=== PATIENT | male | born 1950 | race Caucasian/White ===

== ENCOUNTER 2017-04-03 20:10 | Observation (INO) ==
[2017-04-03] MEDS ORDERED: Naloxone 0.4 MG/ML INJ IVP PRN (23:15)
[2017-04-03] MEDS ORDERED: Acetaminophen 325 MG TABLET PO PRN (23:15)
[2017-04-03] MEDS ORDERED: Metoprolol 100 MG TABLET PO SCH (23:19)
--- NOTE | 2017-04-03 23:41 | Internal Med History&Physical ---
Date of Encounter: 04/03/17 Time of Encounter: 23:30 Assessment and Plan (1) Diastolic heart failure Current visit: Yes Status: Acute Patient with bilateral pedal edema. Echocardiogram done in 2016 showed EF of 60 -65% with indeterminate diastolic function. We will repeat 2-D echocardiogram. Patient has exertional dyspnea. Will treat with intravenous Lasix. High risk for complications. Monitor urine output and renal function closely. Qualifiers: Heart failure chronicity: acute on chronic Qualified Code(s): I50.33 - Acute on chronic diastolic (congestive) heart failure (2) A-fib Current visit: Yes Status: Acute Patient with atrial fibrillation. Has had prior ablation. On anticoagulation with Xarelto. Reports no episodes of A. fib since his ablation earlier this year to current presentation. Will consult cardiology for recommendations. Continue metoprolol. Monitor with telemetry. Qualifiers: Atrial fibrillation type: chronic Qualified Code(s): I48.2 - Chronic atrial fibrillation (3) Chronic kidney disease, stage III (moderate) Current visit: Yes Status: Acute Creatinine slightly above baseline. Will monitor renal function closely as patient is receiving IV Lasix. (4) DM type 2 causing CKD stage 3 Current visit: Yes Status: Chronic Blood sugars uncontrolled. Will place patient back on his usual regimen of long -acting insulin and add sliding scale coverage. Diabetic diet. Monitor blood sugars closely Qualifiers: Diabetes mellitus usp insulin use: with linoleum layer helper use Qualified Code( s): E11.22 - Type 2 diabetes mellitus with diabetic chronic kidney disease; N18.3 - Chronic kidney disease, stage 3 (moderate); Z79.4 - alf (current) use of insulin (5) Hypertension Current visit: Yes Status: Chronic Controlled at this time. Continue home medications including metoprolol and lisinopril Qualifiers: Hypertension type: essential hypertension Qualified Code(s): I10 - Essential (primary) hypertension (6) Obesity, Class III, BMI 40-49.9 (morbid obesity) Current visit: Yes Status: Chronic Internal Medicine - H&P: HPI Chief complaint: Shortness of breath and palpitations Admitted From: Emergency Dept Plans for Post Hospital Care: Home History of present illness: Mr. Hernández is a 67 year old male patient with history of atrial fibrillation status post ablation earlier this year presented to the ER with complaints of shortness of breath with minimal exertion along with palpitations. Patient has been having these symptoms for the past couple of days. He did not have episodes of atrial fibrillation since his ablation earlier this year but has noted that his heart rate has increased to 140 this afternoon prior to presentation. In the ER he was found to be in A. fib. He denies any fever or chills. Does have some cough. Reports chest pain across his chest and he had radiation of the chest pain up to his jaw earlier this afternoon. Chest pain has since subsided. He denies any orthopnea or PND but does have increased pedal edema. Past Med Surg Social Fam HX - Past Medical History Attestation: Yes The following information was validated with the patient. Source: patient Medical history: CHF, diabetes, hyperlipidemia, hypertension, kidney stones, osteoporosis Psychiatric history: no psych history - Past Surgical History Surgical History: cholecystectomy, ureteral stent, other - Social History Smoking Status: Former smoker Smokeless Tobacco Status: No Alcohol use: rarely Drug use: none - Family History Mother Adopted: No Family Member Ethnicity: Non- Living Status: Hx Family Neurologic Disorders: Yes Father Adopted: No Family Member Ethnicity: Non- Living Status: Hx Family Cardiac Disorders: Yes Sister Hx Family Endocrine Disorder: Yes (DM(I)) Brother Hx Family Cardiac Disorders: Yes (CT) Internal Medicine - H&P: Meds Atorvastatin [Lipitor] 20 mg PO DAILY 10/17/15 [History] Furosemide [Lasix] 80 mg PO BID 10/17/15 [History] GlipiZIDE [Glipizide Xl] 20 mg PO DAILY 10/17/15 [History] Metformin HCl [Glucophage] 1,000 mg PO BID 10/17/15 [History] Multivitamin [One Daily Essential] 1 tab PO DAILY 10/17/15 [History] [place]-3/Dha/Epa/Fish Oil [Fish Oil 1,000 mg Softgel] 1,000 mg PO DAILY 10/17/15 [History] Saw/Vit E/Sod Rosa/Lyc/Beta/Pyg [Prostate Health Caplet] 1 tab PO DAILY 10/17/15 [History] Terazosin [Hytrin] 5 mg PO DAILY 10/17/15 [History] Albuterol Sulfate [Albuterol Inhaler] 2 puff IH Q4H PRN 07/21/16 [History] Insulin Glargine,Hum.rec.anlog [Lantus Solostar] 90 unit SQ BID 07/21/16 [ History] Isosorbide MONOnitrate (24 HR) [Imdur] 30 mg PO DAILY 07/21/16 [History] Lisinopril 20 mg PO DAILY 07/21/16 [History] Metoprolol [Lopressor] 150 mg PO BID 07/21/16 [History] Rivaroxaban [Xarelto] 15 mg PO 1700 07/21/16 [History] 3 Allergy/AdvReac Type Severity Reaction Status Date / Time sulfamethoxazole Allergy Rash Verified 04/12/16 10:16 [From Bactrim] trimethoprim [From Bactrim] Allergy Rash Verified 04/12/16 10:16 All Systems PM: A 10-system review of systems was performed and is negative for pertinent findings except as documented above in the HPI. - Constitutional Constitutional: no chills, no fever(s), no night sweats - EENT Eyes: no change in vision, no discharge, no pain, no photophobia Ears: no ear discharge, no ear pain, no tinnitus Nose, mouth and throat: no dysphagia, no nasal discharge, no neck pain, no sore throat - Cardiovascular Cardiovascular ROS IM: chest pain, dyspnea on exertion, edema, palpitations, no diaphoresis, no dyspnea, no lightheadedness, no syncope - Respiratory Respiratory: no cough, no dyspnea, no wheezing, no excessive phlegm production - Gastrointestinal Gastrointestinal: no abdominal pain, no diarrhea, no hematemesis, no hematochezia, no melena, no nausea, no vomiting - Musculoskeletal Musculoskeletal ROS IM: no numbness, no tingling - Integumentary Integumentary IM: no rash, no unusual bruising - Neurological Neurological ROS: no confusion, no convulsions, no focal weakness, no numbness, no tingling, no tremor(s) - Hematologic/Lymphatic Hematologic/Lymphatic: no easy bruising - Constitutional Vitals: Temp Pulse Resp BP Pulse Ox 97.5 F L 90 20 120/75 94 04/03/17 22:18 04/03/17 22:18 04/03/17 22:18 04/03/17 22:18 04/03/17 22:33 General appearance: Present: cooperative, mild distress, A&O X 3, morbidly obese , pleasant, answers questions appropriately - Neck Neck exam general surgery: Present: supple, trachea midline. Absent: lymphadenopathy - Respiratory Respiratory exam: Present: CTAB. Absent: accessory muscle use, rales, rhonchi, wheezes - Cardiovascular Cardiovascular exam: Present: irregular rhythm, +S1, +S2. Absent: diastolic murmur, gallop, rubs, systolic murmur - GI/Abdominal GI/Abdominal exam: Present: normal bowel sounds, soft, no peritoneal signs. Absent: distended, tenderness - Extremities Exam Extremities exam: Present: pedal edema, warm, radial pulses palpable and symmetrical. Absent: calf tenderness, cyanotic - Neurological Exam Neurological exam: Present: alert, CN II-XII intact, oriented X3, no focal deficits. Absent: facial droop, speech deficit - Skin Skin exam: Present: dry, intact Internal Med - H&P Results - Labs Labs: BUN 29 and creatinine 1.95, troponin 0.04, glucose 340, - EKG Data -: EKG Interpreted by Myself - EKG Data EKG comments: 04/03/17 23:45 Atrial fibrillation - Impressions No acute infiltrate
[2017-04-03] MEDS ORDERED: D5% in Water 1,000 ML IVC PRN (23:49)
[2017-04-03] MEDS ORDERED: *HR* Dextrose 50 % in Water (Syg) 50 ML SYRINGE IVP PRN (23:49)
[2017-04-03] MEDS ORDERED: Dextrose Gel 15 GM/37.5 ML TUBE PO PRN ×2 (23:49)
[2017-04-04] MEDS: Furosemide 40 MG/4 ML VIAL IVP SCH ×3 (00:15→16:25)
[2017-04-04] MEDS: Insulin DETEMIR 100 UNIT/ML X5UNITS SQ SCH ×3 (00:15→20:06)
[2017-04-04 00:20] LABS: Thyroid Stimulating Hormone 1.782 mcIU/mL (0.340-5.600)
[2017-04-04 00:21] LABS: Triiodothyronine (T3) Free 3.45 pg/mL (2.50-3.90)
[2017-04-04 05:49] LABS: Basophils % 0.4 %; Eosinophils # 0.1 K/mcL (0.0-0.6); Eosinophils % 1.6 %; Hematocrit 35.3 % (37.5-50.1); Hemoglobin 11.5 g/dL (12.9-16.9); Immature Granulocytes % 0.4 % (0-4); Lymphocytes # 2.4 K/mcL (0.6-4.6); Lymphocytes % 29.5 %; Mean Corpuscular HGB Conc 32.6 g/dL (31.6-35.5); Mean Corpuscular Hemoglobin 25.4 pg (28.0-33.3); Mean Corpuscular Volume 78.1 fL (83.0-100.0); Mean Platelet Volume 9.7 fL (9.4-12.4); Monocytes # 0.4 K/mcL (0.0-1.3); Monocytes % 5.3 %; Neutrophils # 5.2 K/mcL (1.6-8.9); Platelet Count 163 K/mcL (140-400); Red Blood Count 4.52 M/mcL (4.19-5.50); Red Cell Distribution Width 16.8 % (11.5-14.5); Segmented Neutrophils % 62.8 %
[2017-04-04 05:57] LABS: Hemoglobin A1C 9.3 %
[2017-04-04 05:59] LABS: Calcium 9.1 mg/dL (8.6-10.3); Potassium 3.7 mEq/L (3.5-5.1)
[2017-04-04] MEDS: Metoprolol 100 MG TABLET PO SCH ×2 (07:51→20:08)
[2017-04-04] MEDS: Isosorbide MONOnitrate (24 HR) 30 MG TAB.ER.24H PO SCH (07:51)
[2017-04-04] MEDS: Lisinopril 20 MG TABLET PO SCH (07:51)
[2017-04-04] MEDS: Multivit/Ca/Min/Fe/FA 1 TAB TABLET PO SCH (07:51)
[2017-04-04] MEDS: PROSTATE HEALTH PO SCH (07:53)
[2017-04-04] MEDS ORDERED: Furosemide 40 MG TABLET PO SCH (08:00)
[2017-04-04] MEDS: Insulin LISPRO 300 UNITS/3 ML VIAL SQ SCH ×3 (08:01→16:26)
--- NOTE | 2017-04-04 10:33 | Cardiology Consult Note ---
<Hever Romero - Last Filed: 04/04/17 10:28> Date of Encounter: 04/04/17 Time of Encounter: 10:00 Assessment and Plan (1) Atrial fibrillation Current Visit: Yes Status: Acute Presents with new afib. H/o atrial flutter s/p ablation. 24 hour telemetry shows afib, avg HR 82 bpm. HR seen as hisgh as 130. On metoprolol tartrate 150 mg BID. Add cardizem and titrate as needed. TSH normal. TTE pending. Last stress test 10/2015 was negative for ischemia. Patient on eliquis with no missed doses. Consider cardioversion if difficult to control. Qualifiers: Atrial fibrillation type: paroxysmal Qualified Code(s): I48.0 - Paroxysmal atrial fibrillation (2) Diastolic heart failure Current Visit: Yes Status: Acute H/o diastolic CHF. TTE 10/2015- LVEF 60-65%. Grossly, there appears to be moderate concentric left ventricular hypertrophy. Indeterminate diastolic function. Mildly dilated left atrium. No evidence of pulmonary hypertension. RVSP was not well obtained. No obvious significant valvular dysfunction. Mild fluid overload on exam. Check BNP. TTE pending. Currently negative 560 ml for his short stay here. Continue IV lasix. CHF education reviewed. Qualifiers: Heart failure chronicity: acute on chronic Qualified Code(s): I50.33 - Acute on chronic diastolic (congestive) heart failure Discussion w patient/family: The assessment and plan as outlined above was discussed with the patient and/or family members who expressed understanding and agreement. All questions were answered. Thank you for involving us in the care of your patient. Please call with any questions. History of Present Illness Consult date: 04/04/17 Requesting physician: Marylou Fontana Consult reason: Afib Chief complaint: dyspnea on exertion. History of present illness: Mr. Hernández is a 67 year old male with a history of SVT, aflutter on eliquis, s /p emeric aflutter ablation 07/2016, diastolic CHF, DM, HTN, and obesity who presents with dyspnea on exertion and palpitations increasing over the past week. C/o palpitations going into his jaw. He reports HR as high as 140 seen at home in the past 48 hours. He admits to 25 lb weight gain over the past year but losing 10lbs in the past month after. Admits to BLE edema. His initial work- up revealed he was in atrial fibrillation. He reports having SOB with his aflutter in the past. Past Med Surg Social Fam HX - Past Medical History Attestation: Yes The following information was validated with the patient. Medical history: CHF, diabetes, hyperlipidemia, hypertension, kidney stones, osteoporosis Psychiatric history: no psych history - Past Surgical History Surgical History: cholecystectomy, ureteral stent, other - Social History Smoking Status: Former smoker Smokeless Tobacco Status: No Alcohol use: rarely Drug use: none - Family History Mother Adopted: No Family Member Ethnicity: Non- Living Status: Hx Family Neurologic Disorders: Yes Father Adopted: No Family Member Ethnicity: Non- Living Status: Hx Family Cardiac Disorders: Yes Sister Hx Family Endocrine Disorder: Yes (DM(I)) Brother Hx Family Cardiac Disorders: Yes (MA) Medications and Allergies Atorvastatin [Lipitor] 20 mg PO DAILY 10/17/15 [History] Furosemide [Lasix] 80 mg PO BID 10/17/15 [History] GlipiZIDE [Glipizide Xl] 20 mg PO DAILY 10/17/15 [History] Metformin HCl [Glucophage] 1,000 mg PO BID 10/17/15 [History] Multivitamin [One Daily Essential] 1 tab PO DAILY 10/17/15 [History] [place]-3/Dha/Epa/Fish Oil [Fish Oil 1,000 mg Softgel] 1,000 mg PO DAILY 10/17/15 [History] Saw/Vit E/Sod Rosa/Lyc/Beta/Pyg [Prostate Health Caplet] 1 tab PO DAILY 10/17/15 [History] Terazosin [Hytrin] 5 mg PO DAILY 10/17/15 [History] Albuterol Sulfate [Albuterol Inhaler] 2 puff IH Q4H PRN 07/21/16 [History] Insulin Glargine,Hum.rec.anlog [Lantus Solostar] 90 unit SQ BID 07/21/16 [ History] Isosorbide MONOnitrate (24 HR) [Imdur] 30 mg PO DAILY 07/21/16 [History] Lisinopril 20 mg PO DAILY 07/21/16 [History] Metoprolol [Lopressor] 150 mg PO BID 07/21/16 [History] Docusate [Colace] 100 mg PO DAILY PRN 04/04/17 [History] Gabapentin [Neurontin] 100 mg PO TID 04/04/17 [History] Linagliptin [Tradjenta] 5 mg PO DAILY 04/04/17 [History] Sitagliptin Phosphate [Januvia] 50 mg PO DAILY 04/04/17 [History] 3 Allergy/AdvReac Type Severity Reaction Status Date / Time sulfamethoxazole Allergy Rash Verified 04/12/16 10:16 [From Bactrim] trimethoprim [From Bactrim] Allergy Rash Verified 04/12/16 10:16 All Systems Review: A 10-system review of systems was performed and is negative for pertinent findings except as documented above in the HPI. Physical Examination Vital Signs, Last 4 Hours Temp Pulse Resp BP Pulse Ox 04/04/17 07:23 97.7 F 103 18 133/70 94 General: Conversant, No Apparent Distress HEENT: Atraumatic, Normocephaly, Mucus Membranes Moist Neck: No JVD, Normal carotid pulses Cardiac: Other (irregular) Lungs: Normal Breath Sounds, No Wheeze, Rales, Rhonchi Neuro: Alert and responsive, No focal deficits noted Abdomen: Soft, Non-Tender Skin: No rashes noted on visualized skin Musculoskeletal: No Chest Wall Tenderness Extremities: No Clubbing, No Cyanosis, Normal Pulses, Other (1+ BLE edema) Results 04/04/17 05:27 04/04/17 05:27 Lab Results 04/03/17 04/03/17 04/04/17 23:33 23:33 05:27 WBC 8.2 Hgb 11.5 L Hct 35.3 L Plt Count 163 Sodium Potassium Chloride Carbon Dioxide BUN Creatinine Glucose Calcium Troponin I 0.03 TSH 1.782 04/04/17 04/04/17 05:27 05:27 WBC Hgb Hct Plt Count Sodium 139 Potassium 3.7 Chloride 103 Carbon Dioxide 28 BUN 34 H Creatinine 1.68 H Glucose 234 H Calcium 9.1 Troponin I 0.03 TSH - Imaging and Cardiology Stress Test: report reviewed Echo: report reviewed Consult Discharge Plan - Plan Referrals: Shivani Rojas, DIVIDEND DEPOSIT VOUCHER CLERK [Primary Care Provider] - <Heri Guerrero - Last Filed: 04/05/17 07:58> Date of Encounter: 04/04/17 Time of Encounter: 21:30 - Attending Attestation I have personally performed a face to face evaluation on this patient. I have reviewed and agree with the care plan. History and Exam by me shows: 1. Atrial fib with RVR: symptomatic, shortness of breath with exertion, fatique over last week, HR response 130s, 140s on presentation, slowed to 80s, 90s on diltiazem and metoprolol. He has hx A flutter with A flutter ablation 11/2016, no previous hx a fib, He is on Eliquis for primary stroke risk reduction. Will continue to titrate meds for rate control, repeat echo, trend troponins. 2. Hypertension: controlled on current medications 3. CHF: acute on chronic diastolic heart failure with increased peripheral edema over last several weeks, responding to IV diuresis, Echo 10/18 showed well preserved EF at 65%, mild LVH, impaired LV relaxation, will repeat echo to compare. 4. IDDM type II adult onset, reports blood sugars fairly well controlled on current meds. Assessment and Plan Discussion w patient/family: The assessment and plan as outlined above was discussed with the patient and/or family members who expressed understanding and agreement. All questions were answered. Thank you for involving us in the care of your patient. Please call with any questions. History of Present Illness History of present illness: Mr. Hernández is a 67 year old male All Systems Review: A 10-system review of systems was performed and is negative for pertinent findings except as documented above in the HPI. Physical Examination Vital Signs, Last 4 Hours Temp Pulse Resp BP Pulse Ox 04/05/17 07:05 97.5 F L 73 20 154/89 91 04/05/17 05:12 98.1 F 72 16 147/84 90 Results 04/05/17 05:07 04/05/17 05:07 Lab Results 04/05/17 04/05/17 05:07 05:07 WBC 7.7 Hgb 11.6 L Hct 36.5 L Plt Count 156 Sodium 139 Potassium 3.9 Chloride 102 Carbon Dioxide 30 H BUN 34 H Creatinine 1.67 H Glucose 262 H Calcium 9.0
[2017-04-04] MEDS ORDERED: Diltiazem CD (24hr) 120 MG CAPSULE PO SCH (10:45)
[2017-04-04] MEDS ORDERED: dilTIAZem HCl 60 MG TABLET PO SCH (11:15)
--- NOTE | 2017-04-04 15:31 | Internal Med Progress Note ---
Date of Encounter: 04/04/17 Time of Encounter: 15:31 - Assessment and plan (1) Atrial fibrillation Current Visit: Yes Status: Acute Assessment and plan: hx a-flutter; S/p RFA 07/2016. Now with new onset a-fib with HRs in 130s. Cont home BB, CCB added per Cardiology. Cont Xarelto. Monitor HR and uptitrate CCB as needed. Consider DCCV if unable to control HR. HR in 90s as of 04/04 afternoon Qualifiers: Atrial fibrillation type: paroxysmal Qualified Code(s): I48.0 - Paroxysmal atrial fibrillation (2) Chronic kidney disease, stage III (moderate) Current Visit: Yes Status: Acute Assessment and plan: per hx. Renal function at baseline. Avoid nephrotoxic agents. Intermittently monitor (3) DM type 2 causing CKD stage 3 Current Visit: Yes Status: Chronic Assessment and plan: Hgb A1c 9.3%. Cont home long acting, add SSI. Monitor blood sugar and titrate PRN Qualifiers: Diabetes mellitus detention insulin use: with terminal gauger supervisor use Qualified Code( s): E11.22 - Type 2 diabetes mellitus with diabetic chronic kidney disease; N18.3 - Chronic kidney disease, stage 3 (moderate); Z79.4 - manager terminal (current) use of insulin (4) Hypertension Current Visit: Yes Status: Chronic Assessment and plan: per hx. BP controlled. Cont home BP medication. Monitor BP and titrate PRN Qualifiers: Hypertension type: essential hypertension Qualified Code(s): I10 - Essential (primary) hypertension (5) Obesity, Class III, BMI 40-49.9 (morbid obesity) Current Visit: Yes Status: Chronic Assessment and plan: BMI 42; lifestyle recommendations encouraged. (6) DVT prophylaxis Current Visit: Yes Status: Acute Assessment and plan: Xarelto - Time Spent With Patient less than 15 minutes - Subjective Interval history: Seen and examined at bedside; patient is new to me. Information obtained from chart review and patient report. Patient says he feels weak and tired. Gets SOB with minimal ambulation. Has palpitations at times. No chest pain - Constitutional Vitals: Temp Pulse Resp BP Pulse Ox 98.3 F 91 16 127/75 94 04/04/17 15:27 04/04/17 15:27 04/04/17 15:27 04/04/17 15:27 04/04/17 15:27 General appearance: Present: cooperative, mild distress, A&O X 3, morbidly obese , pleasant, answers questions appropriately - Head Head exam: Present: atraumatic, normocephalic - Eye Eye exam: Present: PERRL, conjuntiva pink, sclera anicteric Pupils: Present: PERRL - Neck Neck exam general surgery: Present: supple, trachea midline. Absent: lymphadenopathy - Respiratory Respiratory exam: Present: CTAB. Absent: accessory muscle use, rales, rhonchi, wheezes - Cardiovascular Cardiovascular exam: Present: irregular rhythm, +S1, +S2. Absent: diastolic murmur, gallop, rubs, systolic murmur - GI/Abdominal GI/Abdominal exam: Present: normal bowel sounds, soft, no peritoneal signs. Absent: distended, tenderness - Extremities Exam Extremities exam: Present: warm, radial pulses palpable and symmetrical. Absent : calf tenderness, cyanotic, pedal edema - Neurological Exam Neurological exam: Present: CN II-XII intact, oriented X3, no focal deficits. Absent: pronater drift, facial droop, speech deficit - Skin Skin exam: Present: dry, intact Internal Medicine: Result - Labs CBC & Chem 7: 04/04/17 05:27 04/04/17 05:27 Labs: Short CBC 04/04/17 Range/Units 05:27 WBC 8.2 (4.3-11.1) K/mcL Hgb 11.5 L (12.9-16.9) g/dL Hct 35.3 L (37.5-50.1) % Plt Count 163 (140-400) K/mcL Neutrophils # 5.2 (1.6-8.9) K/mcL BMP 04/04/17 05:27 Sodium 139 Potassium 3.7 Chloride 103 Carbon Dioxide 28 BUN 34 H Creatinine 1.68 H Glucose 234 H Calcium 9.1 Cardiac Enzymes 04/03/17 04/04/17 Range/Units 23:33 05:27 Troponin I 0.03 0.03 (< 0.04) ng/mL Consult Discharge Plan - Plan Referrals: Shivani Rojas, RESEARCH ANTHROPOLOGIST [Primary Care Provider] -
[2017-04-04] MEDS: *HR* Rivaroxaban 15 MG TABLET PO SCH (16:26)
[2017-04-04] MEDS: dilTIAZem HCl 60 MG TABLET PO SCH (20:08)
[2017-04-04] MEDS ORDERED: Insulin LISPRO 300 UNITS/3 ML VIAL SQ SCH (21:00)
[2017-04-05] MEDS: dilTIAZem HCl 60 MG TABLET PO SCH ×3 (04:41→21:38)
[2017-04-05 05:34] LABS: Hematocrit 36.5 % (37.5-50.1); Hemoglobin 11.6 g/dL (12.9-16.9); Mean Corpuscular HGB Conc 31.8 g/dL (31.6-35.5); Mean Corpuscular Hemoglobin 25.2 pg (28.0-33.3); Mean Corpuscular Volume 79.3 fL (83.0-100.0); Mean Platelet Volume 9.3 fL (9.4-12.4); Platelet Count 156 K/mcL (140-400); Red Cell Distribution Width 17.1 % (11.5-14.5)
[2017-04-05 05:49] LABS: Potassium 3.9 mEq/L (3.5-5.1)
[2017-04-05] MEDS: Lisinopril 20 MG TABLET PO SCH (09:26)
[2017-04-05] MEDS: Multivit/Ca/Min/Fe/FA 1 TAB TABLET PO SCH (09:26)
[2017-04-05] MEDS: Furosemide 40 MG/4 ML VIAL IVP SCH ×2 (09:27→17:39)
[2017-04-05] MEDS: Isosorbide MONOnitrate (24 HR) 30 MG TAB.ER.24H PO SCH (09:27)
[2017-04-05] MEDS: Metoprolol 100 MG TABLET PO SCH ×2 (09:27→21:38)
[2017-04-05] MEDS: Insulin LISPRO 300 UNITS/3 ML VIAL SQ SCH ×4 (09:28→21:39)
[2017-04-05] MEDS: PROSTATE HEALTH PO SCH (09:29)
[2017-04-05] MEDS: Insulin DETEMIR 100 UNIT/ML X5UNITS SQ SCH (09:44)
--- NOTE | 2017-04-05 11:10 | Cardiology Progress Note ---
Date of Encounter: 04/05/17 Time of Encounter: 11:08 Assessment and Plan (1) Atrial fibrillation Current Visit: Yes Status: Acute Presents with new afib. H/o atrial flutter s/p ablation. 24 hour telemetry shows conversion to NSR overnight. Avg HR 82 bpm. On metoprolol tartrate 150 mg BID. Cardizem added yesterday and he is tolerating well. TSH normal. TTE pending. Last stress test 10/2015 was negative for ischemia. Patient on xarelto renal dose. Recommend continuing diuresis for 24 hours. Continue metoprolol and cardizem. RAUDEL highly suspected. Recommend sleep study. Discussed with patient who agrees. If no significant change on TTE cardiology will likely sign off. Out-pt f/u with cardiology will be coordinated by [facility] in 1-2 weeks. Qualifiers: Atrial fibrillation type: paroxysmal Qualified Code(s): I48.0 - Paroxysmal atrial fibrillation (2) Diastolic heart failure Current Visit: Yes Status: Acute H/o diastolic CHF. TTE 10/2015- LVEF 60-65%. Grossly, there appears to be moderate concentric left ventricular hypertrophy. Indeterminate diastolic function. Mildly dilated left atrium. No evidence of pulmonary hypertension. RVSP was not well obtained. No obvious significant valvular dysfunction. Mild fluid overload on exam. CXR was negative. Noted to have BLE edema mildly improved. Check BNP. Re-peat TTE pending. Continue IV lasix for at least 24 more hours. I&O does not appear to be accurate. weight unchanged from admission. Patient reports he is feeling better but not back to baseline. CHF education reviewed. Qualifiers: Heart failure chronicity: acute on chronic Qualified Code(s): I50.33 - Acute on chronic diastolic (congestive) heart failure Discussion w patient/family: The assessment and plan as outlined above was discussed with the patient and/or family members who expressed understanding and agreement. All questions were answered. Thank you for involving us in the care of your patient. Please call with any questions. Subjective Principal diagnosis: afib, DCHF Interval history: Mr. Hernández noted to have apnea while sleeping yesterday evening. Also difficult to arouse at that time. He is currently alert and oriented. Reports dyspnea when ambulating to bathroom. Denies palpitations. Objective Vital Signs Temp Pulse Resp BP Pulse Ox 04/05/17 07:05 97.5 F L 73 20 154/89 91 04/05/17 05:12 98.1 F 72 16 147/84 90 04/04/17 23:12 97.7 F 69 15 130/79 92 04/04/17 18:46 97.7 F 85 15 139/82 94 04/04/17 15:27 98.3 F 91 16 127/75 94 04/04/17 12:41 97.8 F 97 18 131/80 91 Intake and Output 04/04/17 04/05/17 04/05/17 23:59 07:59 15:59 Intake Total 450 / 450 200 / 200 480 / 480 Output Total 600 / 600 Balance 450 / 450 -400 / -400 480 / 480 Intake: Oral 450 / 450 200 / 200 480 / 480 Output: Urine 600 / 600 Other: Meal Breakfast Percent of Meal Consumed 100% # Voids 2 Weight 144.696 kg Blood Glucose* 333 306 Patient Weight 04/05/17 23:59 Weight 144.696 kg General: Conversant, No Apparent Distress HEENT: Atraumatic, Normocephaly, Mucus Membranes Moist Neck: No JVD, Normal carotid pulses Cardiac: Reg Rate and Rhythm, Normal S1 and S2, No Murmur Lungs: Normal Breath Sounds, No Wheeze, Rales, Rhonchi Neuro: Alert and responsive, No focal deficits noted Abdomen: Soft, Non-Tender Skin: No rashes noted on visualized skin Musculoskeletal: No Chest Wall Tenderness Extremities: No Clubbing, No Cyanosis, Normal Pulses, Other (1+ BLE edema) Results 04/05/17 05:07 04/05/17 05:07 Lab Results 04/05/17 04/05/17 05:07 05:07 WBC 7.7 Hgb 11.6 L Hct 36.5 L Plt Count 156 Sodium 139 Potassium 3.9 Chloride 102 Carbon Dioxide 30 H BUN 34 H Creatinine 1.67 H Glucose 262 H Calcium 9.0 - Imaging and Cardiology Echo: pending - EKG Interpretation EKG results cardiology: personally reviewed Consult Discharge Plan - Plan Referrals: Shivani Rojas, BAKESHOP CLEANER [Primary Care Provider] -
--- NOTE | 2017-04-05 16:03 | Internal Med Progress Note ---
Date of Encounter: 04/05/17 Time of Encounter: 16:01 - Assessment and plan (1) Diastolic heart failure Current Visit: Yes Status: Acute Assessment and plan: presented with SOB and lower extremity edema. 10/2015 TTE with EF 60% indeterminate diastolic dysfunction. Suspect secondary to dietary noncompliance ; patient admits to not restricting Na. Wean home diuretics, continue IV Lasix. Evaluated by cardiology who recommended another 24 hours of diuresis. Repeat echo pending Qualifiers: Heart failure chronicity: acute on chronic Qualified Code(s): I50.33 - Acute on chronic diastolic (congestive) heart failure (2) Atrial fibrillation Current Visit: Yes Status: Acute Assessment and plan: hx a-flutter; S/p RFA 07/2016. Now with new onset a-fib with HRs in 130s. Converted to NSR with home BB and CCB. TSH normal, TTE pending. Continue BB, CCB, Xarelto. Qualifiers: Atrial fibrillation type: paroxysmal Qualified Code(s): I48.0 - Paroxysmal atrial fibrillation (3) Chronic kidney disease, stage III (moderate) Current Visit: Yes Status: Acute Assessment and plan: per hx. Renal function at baseline. Avoid nephrotoxic agents. Intermittently monitor (4) DM type 2 causing CKD stage 3 Current Visit: Yes Status: Chronic Assessment and plan: Hgb A1c 9.3%. Cont home long acting, add SSI. 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 BP controlled. Cont home BP medication. Monitor BP and titrate PRN Qualifiers: Hypertension type: essential hypertension Qualified Code(s): I10 - Essential (primary) hypertension (6) Obesity, Class III, BMI 40-49.9 (morbid obesity) Current Visit: Yes Status: Chronic Assessment and plan: BMI 42; lifestyle recommendations encouraged. (7) RAUDEL (obstructive sleep apnea) Current Visit: Yes Status: Acute Assessment and plan: Suspected with body habitus and daytime sleepiness. Will need outpatient sleep study (8) DVT prophylaxis Current Visit: Yes Status: Acute Assessment and plan: Xarelto - Subjective Interval history: Seen and examined at bedside. Still with complaint of shortness of breath with activity and excessive tiredness. No chest pain. He feels Lasix is working but still needs to get more fluid off of him - Constitutional Vitals: Temp Pulse Resp BP Pulse Ox 97.5 F L 81 16 146/78 91 04/05/17 15:19 04/05/17 15:19 04/05/17 15:19 04/05/17 15:19 04/05/17 15:19 General appearance: Present: cooperative, mild distress, A&O X 3, morbidly obese , pleasant, answers questions appropriately - Head Head exam: Present: atraumatic, normocephalic - Eye Eye exam: Present: PERRL, conjuntiva pink, sclera anicteric Pupils: Present: PERRL - Neck Neck exam general surgery: Present: supple, trachea midline. Absent: lymphadenopathy - Respiratory Respiratory exam: Present: CTAB. Absent: accessory muscle use, rales, rhonchi, wheezes - Cardiovascular Cardiovascular exam: Present: RRR, +S1, +S2. Absent: diastolic murmur, gallop, rubs, systolic murmur - GI/Abdominal GI/Abdominal exam: Present: normal bowel sounds, soft, no peritoneal signs. Absent: distended, tenderness - Extremities Exam Extremities exam: Present: warm, radial pulses palpable and symmetrical. Absent : calf tenderness, cyanotic, pedal edema - Neurological Exam Neurological exam: Present: CN II-XII intact, oriented X3, no focal deficits. Absent: pronater drift, facial droop, speech deficit - Skin Skin exam: Present: dry, intact Internal Medicine: Result - Labs CBC & Chem 7: 04/05/17 05:07 04/05/17 05:07 Labs: Short CBC 04/05/17 Range/Units 05:07 WBC 7.7 (4.3-11.1) K/mcL Hgb 11.6 L (12.9-16.9) g/dL Hct 36.5 L (37.5-50.1) % Plt Count 156 (140-400) K/mcL BMP 04/05/17 05:07 Sodium 139 Potassium 3.9 Chloride 102 Carbon Dioxide 30 H BUN 34 H Creatinine 1.67 H Glucose 262 H Calcium 9.0 Consult Discharge Plan - Plan Referrals: Shivani Rojas, LINING MACHINE TENDER [Primary Care Provider] -
[2017-04-05] MEDS ORDERED: Insulin LISPRO 300 UNITS/3 ML VIAL SQ SCH ×2 (16:30→21:00)
[2017-04-05] MEDS: *HR* Rivaroxaban 15 MG TABLET PO SCH (17:39)
[2017-04-06 04:24] LABS: Hematocrit 35.6 % (37.5-50.1); Hemoglobin 11.2 g/dL (12.9-16.9); Mean Corpuscular HGB Conc 31.5 g/dL (31.6-35.5); Mean Corpuscular Volume 79.5 fL (83.0-100.0); Mean Platelet Volume 9.7 fL (9.4-12.4); Platelet Count 155 K/mcL (140-400); Red Blood Count 4.48 M/mcL (4.19-5.50); Red Cell Distribution Width 17.1 % (11.5-14.5)
[2017-04-06 04:38] LABS: Calcium 8.8 mg/dL (8.6-10.3); Potassium 3.8 mEq/L (3.5-5.1)
[2017-04-06] MEDS: dilTIAZem HCl 60 MG TABLET PO SCH ×3 (04:40→21:30)
[2017-04-06] MEDS: Isosorbide MONOnitrate (24 HR) 30 MG TAB.ER.24H PO SCH (09:02)
[2017-04-06] MEDS: Furosemide 40 MG/4 ML VIAL IVP SCH ×2 (09:02→17:58)
[2017-04-06] MEDS: Multivit/Ca/Min/Fe/FA 1 TAB TABLET PO SCH (09:02)
[2017-04-06] MEDS: Lisinopril 20 MG TABLET PO SCH (09:02)
[2017-04-06] MEDS: Metoprolol 100 MG TABLET PO SCH ×2 (09:02→21:29)
[2017-04-06] MEDS: Insulin DETEMIR 100 UNIT/ML X5UNITS SQ SCH ×2 (09:03→19:42)
[2017-04-06] MEDS: Insulin LISPRO 300 UNITS/3 ML VIAL SQ SCH ×4 (09:03→19:41)
[2017-04-06] MEDS: PROSTATE HEALTH PO SCH (09:04)
--- NOTE | 2017-04-06 12:30 | Cardiology Progress Note ---
Date of Encounter: 04/06/17 Time of Encounter: 12:00 Assessment and Plan (1) Diastolic heart failure Current Visit: Yes Status: Acute H/o diastolic CHF. TTE 10/2015- LVEF 60-65%. Grossly, there appears to be moderate concentric left ventricular hypertrophy. Indeterminate diastolic function. Mildly dilated left atrium. No evidence of pulmonary hypertension. RVSP was not well obtained. No obvious significant valvular dysfunction. Mild fluid overload on exam. CXR was negative. Noted to have BLE edema mildly improved. TTE shows preserved LVEF. Patient reports several missed doses of lasix recently, likely reason for acute on chronic dCHF. Change lasix to PO by discharge. I&O does not appear to be accurate. weight unchanged from admission. Patient reports he is feeling better but not back to baseline. CHF education reviewed. Qualifiers: Heart failure chronicity: acute on chronic Qualified Code(s): I50.33 - Acute on chronic diastolic (congestive) heart failure (2) Atrial fibrillation Current Visit: Yes Status: Acute Presents with new afib. H/o atrial flutter s/p ablation. 24 hour telemetry shows conversion to NSR 04/05/17. Avg HR 66 SR bpm overnight. On metoprolol tartrate 150 mg BID. Cardizem added 04/04/17 and he is tolerating well. TTE shows preserved LVEF, 60%, trace MR/TR. TSH normal. Last stress test 10/2015 was negative for ischemia. Patient on xarelto renal dose. Reports dyspnea significantly improved, emphasized the importance of taking lasix daily at home. Continue metoprolol and cardizem. RAUDEL highly suspected. Recommend sleep study. Discussed with patient who agrees. Out-pt f/u with cardiology will be coordinated by [facility] in 1-2 weeks. Qualifiers: Atrial fibrillation type: paroxysmal Qualified Code(s): I48.0 - Paroxysmal atrial fibrillation Discussion w patient/family: The assessment and plan as outlined above was discussed with the patient and/or family members who expressed understanding and agreement. All questions were answered. Thank you for involving us in the care of your patient. Please call with any questions. The patient will be discussed and reviewed with Dr. Wall; changes to be made accordingly. Cardiology will sign-off. Please call with questions. Subjective Principal diagnosis: afib, DCHF Interval history: Seen and examined. Reports shortness of breath has improved, yet not at baseline. Reports several missed doses of lasix recently. Reemphasized the importance of adhering to CHF guidelines. Otherwise, no reported events overnight. Objective Vital Signs, Last 4 Hours Temp Pulse Resp BP Pulse Ox 04/06/17 11:39 97.8 F 69 18 126/77 94 General: Conversant, Other (morbidly obese) HEENT: Atraumatic, Normocephaly Cardiac: Reg Rate and Rhythm, Normal S1 and S2 Lungs: Normal Breath Sounds Neuro: Alert and responsive Extremities: Other (mild BLE edema, large extremities) Results 04/06/17 03:35 04/06/17 03:35 Lab Results 04/05/17 04/06/17 04/06/17 16:29 03:35 03:35 WBC 7.4 Hgb 11.2 L Hct 35.6 L Plt Count 155 D-Dimer 251 Sodium 138 Potassium 3.8 Chloride 101 Carbon Dioxide 31 H BUN 33 H Creatinine 1.69 H Glucose 293 H Calcium 8.8 Active Medications Acetaminophen (Tylenol) 650 mg PO Q6HR PRN PRN Reason: Mild Pain (1-3) Stop: 10/03/17 23:16 Last Admin: 04/05/17 21:37 Dose: 650 mg Albuterol Sulfate (Albuterol Inhaler) 2 puff IH Q4H PRN PRN Reason: Wheezing Stop: 10/03/17 23:19 Atorvastatin Calcium (Lipitor) 20 mg PO DAILY CARLIE Stop: 10/04/17 09:01 Last Admin: 04/06/17 09:02 Dose: 20 mg Dextrose/Water (Dextrose 50% (Syg)) 25 ml IVP AD PRN PRN Reason: Hypoglycemia Stop: 10/03/17 23:50 Diltiazem HCl (Cardizem) 60 mg PO Q8H CARLIE Stop: 10/04/17 11:16 Last Admin: 04/06/17 11:37 Dose: 60 mg Furosemide (Lasix) 80 mg IVP BIDDIURETIC CARLIE Stop: 10/03/17 23:46 Last Admin: 04/06/17 09:02 Dose: 80 mg Glucagon (Glucagen) 1 mg IM ONCE PRN PRN Reason: Hypoglycemia Stop: 10/03/17 23:50 Glucose (Gluctose) 15 gm PO ONCE PRN PRN Reason: Hypoglycemia Stop: 10/03/17 23:50 Glucose (Gluctose) 30 gm PO ONCE PRN PRN Reason: Hypoglycemia Stop: 10/03/17 23:50 Dextrose (Dextrose 5%) 1,000 mls @ 100 mls/hr IVC .Q10H PRN PRN Reason: HYPOGLYCEMIA Stop: 10/03/17 23:50 Insulin Detemir (Levemir) 95 unit SQ BID [facility] Stop: 10/06/17 09:01 Last Admin: 04/06/17 09:03 Dose: 95 unit Insulin Human Lispro (Humalog) 0 units SQ HS CARLIE PRN Reason: Protocol Stop: 10/05/17 21:01 Last Admin: 04/05/17 21:39 Dose: 16 units Insulin Human Lispro (Humalog) 0 units SQ TIDAC CARLIE PRN Reason: Protocol Stop: 10/05/17 16:31 Last Admin: 04/06/17 11:38 Dose: 16 units Isosorbide Mononitrate (Imdur) 30 mg PO DAILY [facility] Stop: 10/04/17 09:01 Last Admin: 04/06/17 09:02 Dose: 30 mg Lisinopril (Zestril) 20 mg PO DAILY [facility] Stop: 10/04/17 09:01 Last Admin: 04/06/17 09:02 Dose: 20 mg Metoprolol Tartrate (Lopressor) 150 mg PO BID [facility] Stop: 10/04/17 09:01 Last Admin: 04/06/17 09:02 Dose: 150 mg Multivitamins/Calcium (Thera M Plus) 1 tab PO DAILY [facility] Stop: 10/04/17 09:01 Last Admin: 04/06/17 09:02 Dose: 1 tab Naloxone HCl (Narcan) 0.4 mg IVP Q2MIN PRN PRN Reason: Opioid Reversal Stop: 10/03/17 23:16 Pharmacy Profile Note (Patient Taking Own Medication) 1 each PO DAILY [facility] Stop: 10/04/17 09:01 Last Admin: 04/06/17 09:04 Dose: Not Given Pharmacy Profile Note (Patient Taking Own Medication) 1 each PO DAILY [facility] Stop: 10/04/17 09:01 Last Admin: 04/06/17 09:04 Dose: Not Given Rivaroxaban (Xarelto) 15 mg PO 1700 [facility] Stop: 10/04/17 17:01 Last Admin: 04/05/17 17:39 Dose: 15 mg Terazosin HCl (Hytrin) 5 mg PO DAILY CARLIE Stop: 10/04/17 09:01 Last Admin: 04/06/17 09:02 Dose: 5 mg - Imaging and Cardiology Echo: report reviewed - EKG Interpretation EKG results cardiology: personally reviewed Consult Discharge Plan - Plan Referrals: Shivani Rojas, CORSET MAKER [Primary Care Provider] -
--- NOTE | 2017-04-06 14:38 | Internal Med Progress Note ---
Date of Encounter: 04/06/17 Time of Encounter: 14:34 - Assessment and plan (1) Diastolic heart failure Current Visit: Yes Status: Acute Assessment and plan: presented with SOB and lower extremity edema. CXR nonacute, with lower extremity edema. TTE with EF 60%, moderate concentric left ventricular hypertrophy. Suspect secondary to dietary and medication noncompliance; patient admits to not restricting Na and have missed several doses of Lasix. He is diuresing well with IV Lasix. Difficult to ascertain exact fluid loss as I&Os do not appear accurate and weight unchanged from admission. Symptoms significantly improved on 04/06. Continue IV diuresis overnight and anticipate discharge 04/07. Qualifiers: Heart failure chronicity: acute on chronic Qualified Code(s): I50.33 - Acute on chronic diastolic (congestive) heart failure (2) Atrial fibrillation Current Visit: Yes Status: Acute Assessment and plan: hx a-flutter; S/p RFA 07/2016. Now with new onset a-fib with HRs in 130s. Converted to NSR with home BB and CCB. TSH normal. TTE with a 60%. Continue BB , CCB, Xarelto. Qualifiers: Atrial fibrillation type: paroxysmal Qualified Code(s): I48.0 - Paroxysmal atrial fibrillation (3) Chronic kidney disease, stage III (moderate) Current Visit: Yes Status: Acute Assessment and plan: per hx. Renal function at baseline. Avoid nephrotoxic agents. Intermittently monitor (4) DM type 2 causing CKD stage 3 Current Visit: Yes Status: Chronic Assessment and plan: Hgb A1c 9.3%. Blood sugars have been elevated; home long-acting increase and on high-dose SSI. Elevation likely secondary to not being on oral hypoglycemics. Monitor blood sugar and titrate PRN. Resume home diabetes medication regimen at discharge. 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 BP controlled. Cont home BP medication. Monitor BP and titrate PRN Qualifiers: Hypertension type: essential hypertension Qualified Code(s): I10 - Essential (primary) hypertension (6) Obesity, Class III, BMI 40-49.9 (morbid obesity) Current Visit: Yes Status: Chronic Assessment and plan: BMI 42; lifestyle recommendations encouraged. (7) RAUDEL (obstructive sleep apnea) Current Visit: Yes Status: Acute Assessment and plan: Suspected with body habitus and daytime sleepiness. Will need outpatient sleep study (8) DVT prophylaxis Current Visit: Yes Status: Acute Assessment and plan: Xarelto - Time Spent With Patient less than 15 minutes - Subjective Interval history: Seen and examined at bedside. Says he feels much better but he thinks he still needs more fluid to come off. Shortness of breath improved but still there, no chest pain. He would like to stay 1 more night for IV Lasix with possible discharge in the morning. - Constitutional Vitals: Temp Pulse Resp BP Pulse Ox 97.8 F 69 18 126/77 94 04/06/17 11:39 04/06/17 11:39 04/06/17 11:39 04/06/17 11:39 04/06/17 11:39 General appearance: Present: cooperative, mild distress, A&O X 3, morbidly obese , pleasant, answers questions appropriately - Head Head exam: Present: atraumatic, normocephalic - Eye Eye exam: Present: PERRL, conjuntiva pink, sclera anicteric Pupils: Present: PERRL - Neck Neck exam general surgery: Present: supple, trachea midline. Absent: lymphadenopathy - Respiratory Respiratory exam: Present: CTAB. Absent: accessory muscle use, rales, rhonchi, wheezes - Cardiovascular Cardiovascular exam: Present: RRR, +S1, +S2. Absent: diastolic murmur, gallop, rubs, systolic murmur - GI/Abdominal GI/Abdominal exam: Present: normal bowel sounds, soft, no peritoneal signs. Absent: distended, tenderness - Extremities Exam Extremities exam: Present: pedal edema, warm, radial pulses palpable and symmetrical. Absent: calf tenderness, cyanotic - Neurological Exam Neurological exam: Present: CN II-XII intact, oriented X3, no focal deficits. Absent: pronater drift, facial droop, speech deficit - Skin Skin exam: Present: dry, intact Internal Medicine: Result - Labs CBC & Chem 7: 04/06/17 03:35 04/06/17 03:35 Labs: Short CBC 04/06/17 Range/Units 03:35 WBC 7.4 (4.3-11.1) K/mcL Hgb 11.2 L (12.9-16.9) g/dL Hct 35.6 L (37.5-50.1) % Plt Count 155 (140-400) K/mcL BMP 04/06/17 03:35 Sodium 138 Potassium 3.8 Chloride 101 Carbon Dioxide 31 H BUN 33 H Creatinine 1.69 H Glucose 293 H Calcium 8.8 - ABG Interpretation ABG results: PT/INR, D-dimer D-Dimer 251 ng/mLFEU (0-500) 04/05/17 16:29 - Impressions Impressions Echocardiogram 04/04/17 10:00 Impressions: Technically adequate exam. Atrial fibrillation. LVEF 60%. Normal LV chamber size, wall thickness and function. Trace mitral regurgitation. Trace tricuspid regurgitation. Findings: Study Quality * Technically adequate exam. ECG Findings * Atrial fibrillation. Left Ventricle * LVEF 60%. * Normal LV chamber size, wall thickness and function. Right Ventricle * Normal right ventricular structure and function. Left Atrium * Normal left atrial size. Right Atrium * Normal right atrial size. Interatrial Septum * No evidence of PFO by color Doppler. Aortic Valve * Trileaflet aortic valve. Mitral Valve * Normal mitral valve structure and function. * Trace mitral regurgitation. Tricuspid Valve * Normal tricuspid valve structure and function. * Trace tricuspid regurgitation. Pulmonic Valve * Pulmonic valve is not well visualized. Aorta * Normally sized aortic root. Pericardium * The pericardium appears normal. Consult Discharge Plan - Plan Referrals: Shivani Rojas, PARKING METER INSTALLER [Primary Care Provider] -
[2017-04-06] MEDS: *HR* Rivaroxaban 15 MG TABLET PO SCH (17:58)
[2017-04-07] MEDS: dilTIAZem HCl 60 MG TABLET PO SCH ×2 (03:43→11:26)
[2017-04-07 07:35] LABS: Calcium 8.9 mg/dL (8.6-10.3); Potassium 3.8 mEq/L (3.5-5.1)
[2017-04-07] MEDS: Furosemide 40 MG/4 ML VIAL IVP SCH (07:42)
[2017-04-07] MEDS: Insulin LISPRO 300 UNITS/3 ML VIAL SQ SCH ×2 (07:43→11:28)
[2017-04-07] MEDS: Metoprolol 100 MG TABLET PO SCH (07:44)
[2017-04-07] MEDS: Lisinopril 20 MG TABLET PO SCH (07:45)
[2017-04-07] MEDS: Isosorbide MONOnitrate (24 HR) 30 MG TAB.ER.24H PO SCH (07:45)
[2017-04-07] MEDS: Multivit/Ca/Min/Fe/FA 1 TAB TABLET PO SCH (07:45)
[2017-04-07] MEDS: Insulin DETEMIR 100 UNIT/ML X5UNITS SQ SCH (10:13)
[2017-04-07] MEDS: PROSTATE HEALTH PO SCH (10:22)
[2017-04-07 11:20] VITALS: BP 143/83
--- NOTE | 2017-04-07 13:24 | Discharge Summary ---
Date of Encounter: 04/07/17 Time of Encounter: 10:25 - Discharge Diagnosis (1) Diastolic heart failure Priority: Primary Status: Chronic Comments: Acute exacerbation. Pt presents with SOB and LE edema. CXR negative for acute disease. Echo with afib, EF 60% and trace MR and TR. Patient reports he is not adherent to his medication and diet regimen at home. He states that he does not restrict sodium, he does not restrict fluid, and reports that he has missed several doses of Lasix due to the inconvenience of frequent urination. Patient appears to be euvolemic today. He has no pretibial edema and he states that he feels significantly better and is breathing much better. He is now able to ambulate around his room without difficulty or shortness of breath. His lungs are clear and diminished in posterior lung avelar. He is in no respiratory distress and no rales or rhonchi noted. Intake and output recorded does not appear to be accurate, he appears to have about a 3.2 kg weight loss. Patient states that he now understands the importance of taking his medication and adhering to stricter dietary guidelines. Qualifiers: Heart failure chronicity: acute on chronic Qualified Code(s): I50.33 - Acute on chronic diastolic (congestive) heart failure (2) Hypertension Priority: Secondary Status: Chronic Comments: Well controlled in the hospital. Continue home medications. Qualifiers: Hypertension type: essential hypertension Qualified Code(s): I10 - Essential (primary) hypertension (3) Atrial fibrillation Priority: Secondary Status: Acute Comments: The patient was new onset A. fib. Patient converted to normal sinus on 04/05. He remains normal sinus with an average rate of 66. The patient will continue metoprolol tartrate 150 mg twice daily and Cardizem was added, is tolerating it well. Patient will continue renal dose of Xarelto. Patient denies chest pain. Per cardiology, patient would benefit from a sleep study. Patient will follow up with primary care for order for sleep study. Qualifiers: Atrial fibrillation type: paroxysmal Qualified Code(s): I48.0 - Paroxysmal atrial fibrillation (4) Hyperlipidemia Priority: Secondary Status: Chronic Comments: Chronic. Continue Lipitor. Qualifiers: Hyperlipidemia type: Mixed hyperlipidemia Qualified Code(s): E78.2 - Mixed hyperlipidemia (5) DM type 2 causing CKD stage 3 Priority: Secondary Status: Chronic Comments: Patient was poorly controlled diabetes. His A1c is 9.3. Patient reports hyperglycemia because we are not letting him take his by mouth medications while in the hospital. Patient and I discussed the importance of continuing home medications as well as continuing diet modifications, increasing exercise, monitoring Accu-Cheks closely. Patient agreed. 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 Continue lifestyle changes. (7) Chronic kidney disease, stage III (moderate) Priority: Secondary Status: Chronic Comments: GFR is 46, serum creatinine is 1.51. Renal function is improving since admission. Continue to avoid nephrotoxins. Follow-up with nephrology. (8) DVT prophylaxis Priority: Secondary Status: Acute Comments: Pt on Xarelto. (9) RAUDEL (obstructive sleep apnea) Priority: Secondary Status: Acute Comments: Suspected, patient is morbidly obese and reports daytime drowsiness. Cardiology discussed having a sleep study performed. Patient will need to follow-up with primary care for order for sleep study. - Discharge Medications Prescriptions: dilTIAZem HCl [Cardizem] 60 mg PO Q8H #90 tablet Home Medications: Atorvastatin [Lipitor] 20 mg PO DAILY 10/17/15 [History] Furosemide [Lasix] 80 mg PO BID 10/17/15 [History] GlipiZIDE [Glipizide Xl] 20 mg PO DAILY 10/17/15 [History] Metformin HCl [Glucophage] 1,000 mg PO BID 10/17/15 [History] Multivitamin [One Daily Essential] 1 tab PO DAILY 10/17/15 [History] [place]-3/Dha/Epa/Fish Oil [Fish Oil 1,000 mg Softgel] 1,000 mg PO DAILY 10/17/15 [History] Saw/Vit E/Sod Rosa/Lyc/Beta/Pyg [Prostate Health Caplet] 1 tab PO DAILY 10/17/15 [History] Terazosin [Hytrin] 5 mg PO DAILY 10/17/15 [History] Albuterol Sulfate [Albuterol Inhaler] 2 puff IH Q4H PRN 07/21/16 [History] Insulin Glargine,Hum.rec.anlog [Lantus Solostar] 90 unit SQ BID 07/21/16 [ History] Isosorbide MONOnitrate (24 HR) [Imdur] 30 mg PO DAILY 07/21/16 [History] Lisinopril 20 mg PO DAILY 07/21/16 [History] Metoprolol [Lopressor] 150 mg PO BID 07/21/16 [History] Docusate [Colace] 100 mg PO DAILY PRN 04/04/17 [History] Gabapentin [Neurontin] 100 mg PO TID 04/04/17 [History] Linagliptin [Tradjenta] 5 mg PO DAILY 04/04/17 [History] Sitagliptin Phosphate [Januvia] 50 mg PO DAILY 04/04/17 [History] Rivaroxaban [Xarelto] 15 mg PO 1700 tablet 04/07/17 [Rx] dilTIAZem HCl [Cardizem] 60 mg PO Q8H #90 tablet 04/07/17 [Rx] Allergies/Adverse Reactions: 3 Allergy/AdvReac Type Severity Reaction Status Date / Time sulfamethoxazole Allergy Rash Verified 04/12/16 10:16 [From Bactrim] trimethoprim [From Bactrim] Allergy Rash Verified 04/12/16 10:16 Date of admission: 04/03/17 22:08 Primary care physician: Shivani Rojas CNP Consults: 04/03/17 23:17 Consult to Cardiology [CONS] Routine Comment: Consulting Provider: [facility] [place] Reason for Consult: Afib ; prior ablation Call Completed: No Discharging clinician: Meredith Augustin Anticipated date of discharge: 04/07/17 - Patient Status Disposition: Home, Self-Care Condition: Good Functional capacity at discharge: independent ambulation Overall status at discharge: patient is back to baseline - Discharge Instructions Follow Up With: Shivani Rojas CNP [Primary Care Provider] - Additional Instructions: Follow up with your PCP in the next 7-10 days for a recheck. Take your medications as written without missing doses. Restrict your fluids to 1.5 liters daily and decrease your sodium intake. Read labels and do not use table salt. Stick to a diabetic diet and watch your carbohydrate and calorie intake. Your A1c is 9.3%. Take your medications and monitor your blood sugar. Talk to your PCP about getting a sleep study to check for sleep apnea and need for Bipap at home. Return to the ER as needed for any other problems or concerns or if your symptoms return or worsen. - Diet and Activity Activity: increase activity as tolerated Diet: diabetic diet Hospital course: Mr. Hernández is a 67 year old male - Time Spent with Patient Total time spent providing and/or coordinating discharge services: Less than 30 minutes - Constitutional Vitals: Temp Pulse Resp BP Pulse Ox 97.6 F 66 17 143/83 94 04/07/17 11:19 04/07/17 11:19 04/07/17 11:19 04/07/17 11:19 04/07/17 11:19 General appearance: Present: cooperative, mild distress, A&O X 3, morbidly obese , pleasant, no acute distress, answers questions appropriately - Head Head exam: Present: atraumatic, normal inspection, normocephalic - Eye Eye exam: Present: normal appearance, conjuntiva pink, sclera anicteric - Neck Neck exam general surgery: Present: normal inspection, supple, trachea midline. Absent: lymphadenopathy, tenderness - Respiratory Respiratory exam: Present: decreased breath sounds, CTAB. Absent: accessory muscle use, chest wall tenderness, rales, respiratory distress, rhonchi, wheezes - Cardiovascular Cardiovascular exam: Present: RRR, +S1, +S2. Absent: diastolic murmur, gallop, rubs, systolic murmur - GI/Abdominal GI/Abdominal exam: Present: normal bowel sounds, soft. Absent: distended, hepatomegaly, tenderness - Extremities Exam Extremities exam: Present: normal capillary refill, tenderness, warm, radial pulses palpable and symmetrical. Absent: calf tenderness, cyanotic, pedal edema - Neurological Exam Neurological exam: Present: alert, oriented X3, no focal deficits. Absent: facial droop, speech deficit - Skin Skin exam: Present: dry, intact, normal color, warm. Absent: rash
== END 2017-04-07 15:21 | disposition home or self-care (01) ==
LOC: 3BNU
PROVIDERS: ADMIT Internal Medicine; ATTEND Registered Nurse

== ENCOUNTER 2017-06-22 09:03 | Inpatient (IN) ==
--- NOTE | 2017-06-22 12:20 | Internal Med History&Physical ---
Date of Encounter: 06/22/17 Time of Encounter: 12:16 Assessment and Plan (1) Acute renal failure Current visit: No Status: Acute Acute kidney injury with a creatinine about 7 and bun over 130 patient making urine most likely due to diuresis in addition to MAGNO inhibitor and being diabetic we will hold Magno and diuretic and consult nephrology Qualifiers: Acute renal failure type: unspecified Qualified Code(s): N17.9 - Acute kidney failure, unspecified (2) DVT prophylaxis Current visit: No Status: Acute (3) DM type 2 causing CKD stage 3 Current visit: No Status: Chronic Chronic we will resume home medication and place on sliding scale Qualifiers: 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: unspecified assistant terminal manager insulin use status Qualified Code(s): E11.22 - Type 2 diabetes mellitus with diabetic chronic kidney disease; N18.3 - Chronic kidney disease, stage 3 (moderate); N18.3 - Chronic kidney disease, stage 3 (moderate) (4) Hyperlipidemia Current visit: No Status: Chronic Chronic resume home medication Qualifiers: Hyperlipidemia type: pure hypercholesterolemia Qualified Code(s): E78.00 - Pure hypercholesterolemia, unspecified; E78.0 - Pure hypercholesterolemia (5) Hypertension Current visit: No Status: Chronic Chronic resume home medication Qualifiers: Hypertension type: essential hypertension Qualified Code(s): I10 - Essential (primary) hypertension (6) Obesity, Class III, BMI 40-49.9 (morbid obesity) Current visit: No Status: Chronic Chronic due to excessive caloric intake Internal Medicine - H&P: HPI Chief complaint: tony Admitted From: Intrahospital Transfer Plans for Post Hospital Care: Home History of present illness: Mr. Hernández is a 67 year old male Patient with history of diastolic heart failure on Lasix 80 mg twice a day, atrial fibrillation status post ablation, CK D stage III, diabetes, obesity, high cholesterol. Patient was at primary physician's office has some lab drawn which came back showing creatinine of 7 bun over 1:30 patient was then sent to the emergency room he went to [facility] and then transferred here for admission. Patient denies any shortness of breath has some abnormal taste for about 2 days He is not confused still has some leg edema no change in appetite. Repeat creatinine has come down to 6.8 will consult nephrology and IV hydration. Denies any chest pain Past Med Surg Social Fam HX - Past Medical History Medical history: CHF, diabetes, hyperlipidemia, hypertension, kidney stones, osteoporosis Psychiatric history: no psych history - Past Surgical History Surgical History: cholecystectomy, ureteral stent, other - Social History Smoking Status: Former smoker Smokeless Tobacco Status: No Alcohol use: rarely Drug use: none - Family History Mother Adopted: No Family Member Ethnicity: Non- Living Status: Hx Family Neurologic Disorders: Yes Father Adopted: No Family Member Ethnicity: Non- Living Status: Hx Family Cardiac Disorders: Yes Sister Hx Family Endocrine Disorder: Yes (DM(I)) Brother Hx Family Cardiac Disorders: Yes ([place]) Internal Medicine - H&P: Meds Atorvastatin [Lipitor] 20 mg PO DAILY 10/17/15 [History] Furosemide [Lasix] 80 mg PO BID 10/17/15 [History] GlipiZIDE [Glipizide Xl] 20 mg PO DAILY 10/17/15 [History] Metformin HCl [Glucophage] 1,000 mg PO BID 10/17/15 [History] Multivitamin [One Daily Essential] 1 tab PO DAILY 10/17/15 [History] [place]-3/Dha/Epa/Fish Oil [Fish Oil 1,000 mg Softgel] 1,000 mg PO DAILY 10/17/15 [History] Saw/Vit E/Sod Rosa/Lyc/Beta/Pyg [Prostate Health Caplet] 1 tab PO DAILY 10/17/15 [History] Terazosin [Hytrin] 5 mg PO DAILY 10/17/15 [History] Albuterol Sulfate [Albuterol Inhaler] 2 puff IH Q4H PRN 07/21/16 [History] Insulin Glargine,Hum.rec.anlog [Lantus Solostar] 90 unit SQ BID 07/21/16 [ History] Isosorbide MONOnitrate (24 HR) [Imdur] 30 mg PO DAILY 07/21/16 [History] Lisinopril 20 mg PO DAILY 07/21/16 [History] Metoprolol [Lopressor] 150 mg PO BID 07/21/16 [History] Docusate [Colace] 100 mg PO DAILY PRN 04/04/17 [History] Gabapentin [Neurontin] 100 mg PO TID 04/04/17 [History] Linagliptin [Tradjenta] 5 mg PO DAILY 04/04/17 [History] Sitagliptin Phosphate [Januvia] 50 mg PO DAILY 04/04/17 [History] Rivaroxaban [Xarelto] 15 mg PO 1700 tablet 04/07/17 [Rx] dilTIAZem HCl [Cardizem] 60 mg PO Q8H #90 tablet 04/07/17 [Rx] 3 Allergy/AdvReac Type Severity Reaction Status Date / Time sulfamethoxazole Allergy Rash Verified 04/12/16 10:16 [From Bactrim] trimethoprim [From Bactrim] Allergy Rash Verified 04/12/16 10:16 All Systems PM: A 10-system review of systems was performed and is negative for pertinent findings except as documented above in the HPI. - Constitutional Constitutional: weakness - EENT Eyes: no change in vision, no discharge, no pain, no photophobia Ears: no ear discharge, no ear pain, no tinnitus Nose, mouth and throat: no dysphagia, no nasal discharge, no neck pain, no sore throat - Cardiovascular Cardiovascular ROS IM: no chest pain, no diaphoresis, no dyspnea, no lightheadedness, no palpitations, no syncope - Respiratory Respiratory: no cough, no dyspnea, no wheezing, no excessive phlegm production - Gastrointestinal Gastrointestinal: no abdominal pain, no diarrhea, no hematemesis, no hematochezia, no melena, no nausea, no vomiting - Musculoskeletal Musculoskeletal ROS IM: no numbness, no tingling - Integumentary Integumentary IM: no rash, no unusual bruising - Neurological Neurological ROS: no confusion, no convulsions, no focal weakness, no numbness, no tingling, no tremor(s) - Eye Eye exam: Present: PERRL, conjuntiva pink, sclera anicteric Pupils: Present: PERRL - Neck Neck exam general surgery: Present: supple, trachea midline. Absent: lymphadenopathy - Respiratory Respiratory exam: Present: CTAB. Absent: accessory muscle use, rales, rhonchi, wheezes - Cardiovascular Cardiovascular exam: Present: RRR, +S1, +S2. Absent: diastolic murmur, gallop, rubs, systolic murmur - GI/Abdominal GI/Abdominal exam: Present: normal bowel sounds, soft, no peritoneal signs. Absent: distended, tenderness - Extremities Exam Extremities exam: Present: pedal edema
[2017-06-22] MEDS ORDERED: Acetaminophen 325 MG TABLET PO PRN (12:25)
[2017-06-22] MEDS ORDERED: Naloxone 0.4 MG/ML INJ IVP PRN (12:25)
[2017-06-22] MEDS: Gabapentin 100 MG CAPSULE PO SCH ×2 (15:56→21:10)
[2017-06-22] MEDS: 0.9 % Sodium Chloride 1,000 ML IVC SCH ×2 (15:57→18:16)
[2017-06-22] MEDS ORDERED: *HR* Rivaroxaban 15 MG TABLET PO SCH (17:00)
[2017-06-22] MEDS ORDERED: D5% in Water 1,000 ML IVC PRN (17:18)
[2017-06-22] MEDS ORDERED: *HR* Dextrose 50 % in Water (Syg) 50 ML SYRINGE IVP PRN (17:18)
[2017-06-22] MEDS ORDERED: Dextrose Gel 15 GM/37.5 ML TUBE PO PRN ×2 (17:18)
[2017-06-22] MEDS ORDERED: Insulin LISPRO 300 UNITS/3 ML VIAL SQ SCH ×2 (17:30→21:00)
[2017-06-22] MEDS: Metoprolol 100 MG TABLET PO SCH (21:09)
[2017-06-22] MEDS: Insulin DETEMIR 100 UNIT/ML X5UNITS SQ SCH (21:10)
[2017-06-22] MEDS ORDERED: Insulin LISPRO 300 UNITS/3 ML VIAL SQ ONE (22:47)
--- NOTE | 2017-06-22 22:54 | Event Note ---
Date of Encounter: 06/22/17 Time of Encounter: 22:51 I was informed that the patients blood glucose remained at 455 after receiving 12 units of SC insulin. He also received 90 units of basal insulin. The patient's daughter informed the nurse that the patient had eaten several chocolate cookies while inpatient since receiving his insulin, likely prompting his hyperglycemia. I have ordered an additional 6 units of SC insulin and ordered an FSBG 2 hours after giving the additional 6 units. The RN has been instructed to call with results..
[2017-06-23] MEDS ORDERED: Ondansetron 4 MG/2 ML VIAL IVP PRN (03:36)
[2017-06-23] MEDS ORDERED: *HR* Enoxaparin 40 MG/0.4 ML SYRINGE SQ SCH (06:00)
[2017-06-23 07:19] LABS: Albumin 3.4 g/dL (3.5-5.7); Bilirubin,Total 0.3 mg/dL (0.3-1.0); Calcium 8.8 mg/dL (8.6-10.3); Chol/HDL Ratio 4.2 (0-4.9); Globulin 3.3 g/dL (2.4-3.5); Magnesium 2.1 mg/dL (1.6-2.6); Potassium 4.6 mEq/L (3.5-5.1); Total Protein 6.7 g/dL (6.4-8.9)
[2017-06-23 07:20] LABS: Hematocrit 33.8 % (37.5-50.1); Hemoglobin 10.7 g/dL (12.9-16.9); Mean Corpuscular HGB Conc 31.7 g/dL (31.6-35.5); Mean Corpuscular Hemoglobin 25.9 pg (28.0-33.3); Mean Corpuscular Volume 81.8 fL (83.0-100.0); Mean Platelet Volume 9.6 fL (9.4-12.4); Platelet Count 162 K/mcL (140-400); Red Blood Count 4.13 M/mcL (4.19-5.50); Red Cell Distribution Width 18.5 % (11.5-14.5)
[2017-06-23] MEDS: Insulin LISPRO 300 UNITS/3 ML VIAL SQ SCH ×4 (08:05→20:37)
[2017-06-23] MEDS: Gabapentin 100 MG CAPSULE PO SCH ×3 (08:07→20:37)
[2017-06-23] MEDS: Multivit/Ca/Min/Fe/FA 1 TAB TABLET PO SCH (08:07)
[2017-06-23] MEDS: Metoprolol 100 MG TABLET PO SCH ×2 (08:08→20:37)
[2017-06-23] MEDS: *HR* SitaGLIPtin 25 MG TABLET PO SCH (08:08)
[2017-06-23] MEDS: (Omega-3/Dha/Epa/Fish Oil [Fish Oil 1,000 Mg Softgel] PO SCH (08:08)
[2017-06-23] MEDS: Isosorbide MONOnitrate (24 HR) 30 MG TAB.ER.24H PO SCH (08:08)
--- NOTE | 2017-06-23 09:42 | Internal Med Progress Note ---
Date of Encounter: 06/23/17 Time of Encounter: 09:42 - Time Spent With Patient (1) Acute renal failure Current visit: No Status: Acute Acute on chronic renal failure, history of chronic kidney disease of stage III, caused by metolazone, Lasix and lisinopril Hold all 3 creatinine was above7 and bun over 130, making urine consulted nephrology Start mild hydration, has history of diastolic CHF for which she was started on a daily dose of Zaroxolyn and high doses of Lasix Qualifiers: Acute renal failure type: unspecified Qualified Code(s): N17.9 - Acute kidney failure, unspecified (2) Obesity, Class III, BMI 40-49.9 (morbid obesity) Current visit: No Status: Chronic Chronic due to excessive caloric intake (3) DM type 2 causing CKD stage 3 Current visit: No Status: Chronic Uses Januvia and metformin, metformin is on hold sliding scale Qualifiers: Diabetes mellitus senior living insulin use: unspecified terminal gauger insulin use status Qualified Code(s): E11.22 - Type 2 diabetes mellitus with diabetic chronic kidney disease; N18.3 - Chronic kidney disease, stage 3 (moderate); N18.3 - Chronic kidney disease, stage 3 (moderate) (4) Hyperlipidemia Current visit: No Status: Chronic Stable Qualifiers: Hyperlipidemia type: pure hypercholesterolemia Qualified Code(s): E78.00 - Pure hypercholesterolemia, unspecified; E78.0 - Pure hypercholesterolemia (5) Hypertension Current visit: No Status: Chronic Hold lisinopril, may use hydralazine IV as needed Qualifiers: Hypertension type: essential hypertension Qualified Code(s): I10 - Essential (primary) hypertension (6) DVT prophylaxis Current visit: No Status: Acute - Subjective Interval history: Denies any chest pain, shortness of breath, no abdominal pain, no dysuria, no diarrhea, no fevers - Constitutional Vitals: Temp Pulse Resp BP Pulse Ox 97.3 F L 66 20 129/78 96 06/23/17 06:53 06/23/17 06:53 06/23/17 06:53 06/23/17 06:53 06/23/17 06:53 General appearance: Present: A&O X 3, morbidly obese - Head Head exam: Present: atraumatic, normocephalic - Eye Eye exam: Present: PERRL, conjuntiva pink, sclera anicteric Pupils: Present: PERRL - Neck Neck exam general surgery: Present: supple, trachea midline. Absent: lymphadenopathy - Respiratory Respiratory exam: Present: decreased breath sounds, CTAB. Absent: accessory muscle use, rales, rhonchi, wheezes - Cardiovascular Cardiovascular exam: Present: RRR, +S1, +S2. Absent: diastolic murmur, gallop, rubs, systolic murmur - GI/Abdominal GI/Abdominal exam: Present: distended, normal bowel sounds, soft, no peritoneal signs. Absent: tenderness - Extremities Exam Extremities exam: Present: warm, radial pulses palpable and symmetrical. Absent : calf tenderness, cyanotic, pedal edema - Neurological Exam Neurological exam: Present: CN II-XII intact, oriented X3, no focal deficits. Absent: pronater drift, facial droop, speech deficit - Skin Skin exam: Present: dry, intact Internal Medicine: Result - Labs CBC & Chem 7: 06/23/17 05:44 06/23/17 05:44 Labs: Short CBC 06/23/17 Range/Units 05:44 WBC 8.2 (4.3-11.1) K/mcL Hgb 10.7 L (12.9-16.9) g/dL Hct 33.8 L (37.5-50.1) % Plt Count 162 (140-400) K/mcL BMP 06/23/17 05:44 Sodium 139 Potassium 4.6 Chloride 109 H Carbon Dioxide 21 L BUN 119 H Creatinine 4.93 H Glucose 201 H Calcium 8.8 Liver Function 06/23/17 Range/Units 05:44 Total Bilirubin 0.3 (0.3-1.0) mg/dL AST 17 (13-39) Units/L ALT 17 (7-52) Units/L Alkaline Phosphatase 63 (34-104) Units/L Albumin 3.4 L (3.5-5.7) g/dL Consult Discharge Plan - Plan Referrals: Shivani Rojas CNP [Primary Care Provider] -
[2017-06-23] MEDS ORDERED: 0.9 % Sodium Chloride 1,000 ML IVC SCH (09:45)
[2017-06-23] MEDS ORDERED: Acetaminophen 325 MG TABLET PO PRN (09:45)
--- NOTE | 2017-06-23 09:50 | Nephrology Consult Note ---
Date of Encounter: 06/23/17 Time of Encounter: 08:40 Assessment and Plan (1) ALEXUS (acute kidney injury) Current Visit: Yes Status: Acute ALEXUS most likely related to chronic high dose diuretic with recent addition of Metolazone related to diastolic heart failure superimposed on undiagnosed CKD most likely in setting of diabetes and hypertension. Baseline creat 1.3-1.7. Concern for right sided heart failure/valve disease, pulm HTN or undiagnosed RAUDEL. Will obtain renal US, avoid nephrotoxins, I&O's. Will continue to monitor. History of Present Illness - Reason for Consult Acute Kidney Injury - History of Present Illness Mr. Hernández is a 67 year old male who was sent to [place] [facility] yesterday with elevated creat. 7.91, BUN > 130 and was subsequently transferred to [facility]. Other PMH- CHF-diastolic, diabetes, hyperlipidemia, hypertension, kidney stones , osteoporosis, cholecystectomy, ureteral stent. Mr. Hernández states he has been on high dose diuretics for past year for his CHF, last inpatient admission for CHF this past March. Furosemide 120 mg in AM and 80mg in PM with recent addition of Metolazone 2.5 mg daily for last week or two. He states his "kidney numbers were being watched." ACEI and Diuretics stopped. He denies prior knowledge of CKD though labs from August 2015 show baseline creatinine 1.3-1.7. Admits diabetes and hypertension for past 15-20 years, diabetes never under good control. 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 He admits remote NSAID use for rare headache. He denies proteinuria, hematuria or UTI's. He admits renal stone event 15 years ago that required ureteral stent but denies any further stone events. He reports his usual LE swelling, currently 1+, knees down with mild vascular skin changes. He denies shortness of breath or chest pain. Documented urine output 250 cc, though he states he is unable to void in urinal and has been voiding large amounts of urine since admission. Creatinine has been improving, today 4.93, gfr 12. BUN 119, K 4.6. Oral intake is good this morning. Past Med Surg Social Fam HX - Past Medical History Medical history: CHF, diabetes, hyperlipidemia, hypertension, kidney stones, osteoporosis Psychiatric history: no psych history - Past Surgical History Surgical History: cholecystectomy, ureteral stent, other - Social History Smoking Status: Former smoker Smokeless Tobacco Status: No Alcohol use: rarely Drug use: none - Family History Mother Adopted: No Family Member Ethnicity: Non- Living Status: Hx Family Neurologic Disorders: Yes Father Adopted: No Family Member Ethnicity: Non- Living Status: Hx Family Cardiac Disorders: Yes Sister Hx Family Endocrine Disorder: Yes (DM(I)) Brother Hx Family Cardiac Disorders: Yes ([place]) Medications and Allergies Atorvastatin [Lipitor] 20 mg PO DAILY 10/17/15 [History] GlipiZIDE [Glipizide Xl] 20 mg PO DAILY 10/17/15 [History] Multivitamin [One Daily Essential] 1 tab PO DAILY 10/17/15 [History] [place]-3/Dha/Epa/Fish Oil [Fish Oil 1,000 mg Softgel] 1,000 mg PO DAILY 10/17/15 [History] Saw/Vit E/Sod Rosa/Lyc/Beta/Pyg [Prostate Health Caplet] 1 tab PO DAILY 10/17/15 [History] Terazosin [Hytrin] 5 mg PO DAILY 10/17/15 [History] Albuterol Sulfate [Albuterol Inhaler] 2 puff IH Q4H PRN 07/21/16 [History] Insulin Glargine,Hum.rec.anlog [Lantus Solostar] 90 unit SQ BID 07/21/16 [ History] Isosorbide MONOnitrate (24 HR) [Imdur] 30 mg PO DAILY 07/21/16 [History] Lisinopril 20 mg PO DAILY 07/21/16 [History] Metoprolol [Lopressor] 150 mg PO BID 07/21/16 [History] Docusate [Colace] 100 mg PO DAILY PRN 04/04/17 [History] Gabapentin [Neurontin] 100 mg PO TID 04/04/17 [History] Rivaroxaban [Xarelto] 15 mg PO 1700 tablet 04/07/17 [Rx] dilTIAZem HCl [Cardizem] 60 mg PO Q8H #90 tablet 04/07/17 [Rx] Canagliflozin/Metformin HCl [Invokamet 150-1,000 mg Tablet] 1 tab PO BID [History] Furosemide [Lasix] 80 mg PO 1200 06/22/17 [History] Furosemide [Lasix] 120 mg PO QAM 06/22/17 [History] metOLazone [Zaroxolyn] 2.5 mg PO DAILY 06/22/17 [History] 3 Allergy/AdvReac Type Severity Reaction Status Date / Time sulfamethoxazole Allergy Rash Verified 04/12/16 10:16 [From Bactrim] trimethoprim [From Bactrim] Allergy Rash Verified 04/12/16 10:16 Metolazone AdvReac kidney Verified 06/22/17 12:40 failure per patient Review of Systems All Systems: reviewed and no additional remarkable complaints except as stated Exam - Vital Signs Vital signs: Initial Vital Signs Temp Pulse Resp BP Pulse Ox 97.6 F 67 12 142/70 97 06/22/17 12:21 06/22/17 12:21 06/22/17 12:21 06/22/17 12:21 06/22/17 12:21 Vital Signs - Last 8 Hours Temp Pulse Resp BP Pulse Ox 06/23/17 06:53 97.3 F L 66 20 129/78 96 06/23/17 03:27 98.1 F 65 18 120/72 97 Intake and Output 06/22/17 06/23/17 06/23/17 23:59 07:59 15:59 Intake Total 1000 / 1000 240 / 240 Output Total 250 / 250 Balance 750 / 750 240 / 240 Intake: IV Fluids 1000 / 1000 0.9 % Sodium Chloride 1,000 ML 1000 / 1000 @ 100 mls/hr IVC .Q10H [facility] Rx#: [id number] Oral 0 / 0 240 / 240 Output: Urine 250 / 250 Other: Meal Breakfast Percent of Meal Consumed 75% # Voids 0 1 Weight 140.188 kg 151.772 kg Blood Glucose* 455 203 Patient Weight 06/23/17 23:59 Weight 151.772 kg - General Appearance General appearance: well-developed, well-nourished, appears started age, obese EENT: mucous membranes moist Neck: no JVD Respiratory: clear Cardiology: edema, regular rate, regular rhythm Additional Comments: 1+ knees down Gastrointestinal: normoactive bowel sounds, no tenderness Integumentary: warm and dry Neurologic: alert and oriented x3 Psychiatric: mood/affect appropriate, cooperative Results - Lab Results 06/23/17 05:44 06/23/17 05:44 Most recent lab results Calcium 8.8 mg/dL (8.6-10.3) 06/23/17 05:44 Magnesium 2.1 mg/dL (1.6-2.6) 06/23/17 05:44 Consult Discharge Plan - Plan Referrals: Shivani Rojas, SONAL [Primary Care Provider] -
[2017-06-23] MEDS: dilTIAZem HCl 60 MG TABLET PO SCH ×2 (10:54→17:44)
[2017-06-23] MEDS: Insulin DETEMIR 100 UNIT/ML X5UNITS SQ SCH ×2 (11:37→20:38)
[2017-06-23] MEDS ORDERED: Insulin LISPRO 300 UNITS/3 ML VIAL SQ ONE (22:47)
[2017-06-24] MEDS: dilTIAZem HCl 60 MG TABLET PO SCH ×3 (01:46→17:06)
[2017-06-24 07:18] LABS: Calcium 9.1 mg/dL (8.6-10.3); Potassium 4.8 mEq/L (3.5-5.1)
[2017-06-24] MEDS: Multivit/Ca/Min/Fe/FA 1 TAB TABLET PO SCH (08:12)
[2017-06-24] MEDS: *HR* SitaGLIPtin 25 MG TABLET PO SCH (08:12)
[2017-06-24] MEDS: Insulin LISPRO 300 UNITS/3 ML VIAL SQ SCH ×4 (08:12→20:50)
[2017-06-24] MEDS: Gabapentin 100 MG CAPSULE PO SCH ×3 (08:12→19:59)
[2017-06-24] MEDS: Metoprolol 100 MG TABLET PO SCH ×2 (08:12→19:59)
[2017-06-24] MEDS: Isosorbide MONOnitrate (24 HR) 30 MG TAB.ER.24H PO SCH (08:12)
[2017-06-24] MEDS: Insulin DETEMIR 100 UNIT/ML X5UNITS SQ SCH ×2 (08:13→19:59)
[2017-06-24] MEDS: (Omega-3/Dha/Epa/Fish Oil [Fish Oil 1,000 Mg Softgel] PO SCH (08:15)
--- NOTE | 2017-06-24 08:17 | Internal Med Progress Note ---
Date of Encounter: 06/24/17 Time of Encounter: 08:14 - Time Spent With Patient (1) Acute renal failure Current visit: No Status: Acute Acute on chronic renal failure, history of chronic kidney disease of stage III, caused by metolazone, Lasix and lisinopril Continue to Hold all 3 creatinine was above 7 and bun over 130, making urine consulted nephrology Continue mild hydration, has history of diastolic CHF for which he was started on a daily dose of Zaroxolyn and high doses of Lasix Xarelto is on hold until his renal function improves further, uses Xarelto for history of A. fib Qualifiers: Acute renal failure type: unspecified Qualified Code(s): N17.9 - Acute kidney failure, unspecified (2) Obesity, Class III, BMI 40-49.9 (morbid obesity) Current visit: No Status: Chronic Chronic due to excessive caloric intake (3) DM type 2 causing CKD stage 3 Current visit: No Status: Chronic Uses Januvia and metformin, metformin is on hold sliding scale Qualifiers: Diabetes mellitus longterm insulin use: unspecified terminologist insulin use status Qualified Code(s): E11.22 - Type 2 diabetes mellitus with diabetic chronic kidney disease; N18.3 - Chronic kidney disease, stage 3 (moderate); N18.3 - Chronic kidney disease, stage 3 (moderate) (4) Hyperlipidemia Current visit: No Status: Chronic Stable Qualifiers: Hyperlipidemia type: pure hypercholesterolemia Qualified Code(s): E78.00 - Pure hypercholesterolemia, unspecified; E78.0 - Pure hypercholesterolemia (5) Hypertension Current visit: No Status: Chronic Hold lisinopril, may use hydralazine IV as needed Qualifiers: Hypertension type: essential hypertension Qualified Code(s): I10 - Essential (primary) hypertension (6) DVT prophylaxis Current visit: No Status: Acute - Subjective Interval history: No new complaints. Feeling thirsty Denies any chest pain, shortness of breath, no abdominal pain, no dysuria, no diarrhea, no fevers - Constitutional Vitals: Temp Pulse Resp BP Pulse Ox 97.8 F 61 16 136/66 97 06/24/17 07:20 06/24/17 07:20 06/24/17 07:20 06/24/17 07:20 06/24/17 07:20 General appearance: Present: A&O X 3, morbidly obese Exam: - Head Head exam: Present: atraumatic, normocephalic - Eye Eye exam: Present: PERRL, conjuntiva pink, sclera anicteric Pupils: Present: PERRL - Neck Neck exam general surgery: Present: supple, trachea midline. Absent: lymphadenopathy - Respiratory Respiratory exam: Present: decreased breath sounds, CTAB. Absent: accessory muscle use, rales, rhonchi, wheezes - Cardiovascular Cardiovascular exam: Present: RRR, +S1, +S2. Absent: diastolic murmur, gallop, rubs, systolic murmur - GI/Abdominal GI/Abdominal exam: Present: distended, normal bowel sounds, soft, no peritoneal signs. Absent: tenderness - Extremities Exam Extremities exam: Present: warm, radial pulses palpable and symmetrical. Absent : calf tenderness, cyanotic, pedal edema - Neurological Exam Neurological exam: Present: CN II-XII intact, oriented X3, no focal deficits. Absent: pronater drift, facial droop, speech deficit - Skin Skin exam: Present: dry, intact Internal Medicine: Result - Labs CBC & Chem 7: 06/23/17 05:44 06/24/17 06:19 Labs: BMP 06/24/17 06:19 Sodium 139 Potassium 4.8 Chloride 111 H Carbon Dioxide 20 L BUN 96 H Creatinine 3.74 H Glucose 206 H Calcium 9.1 - Impressions Impressions Retroperitoneum Ultrasound 06/23/17 17:00 IMPRESSION: Simple cyst right kidney. No hydronephrosis. Moderate postvoid residual. Prostatomegaly. D/ / 06/23/2017 17:47:02 Ricco Eubanks MD / shaun Interpreting Provider: Ricco Eubanks MD Consult Discharge Plan - Plan Referrals: Shivani Rojas CNP [Primary Care Provider] -
--- NOTE | 2017-06-24 08:29 | Nephrology Progress Note ---
Date of Encounter: 06/24/17 Time of Encounter: 08:10 - Assessment and Plan (1) ALEXUS (acute kidney injury) Current Visit: Yes Status: Acute ALEXUS most likely related to chronic high dose diuretic with recent addition of Metolazone related to diastolic heart failure superimposed on undiagnosed CKD most likely in setting of diabetes and hypertension. Baseline creat 1.3-1.7. Renal fct improving, creat 3.74. Concern for right sided heart failure/valve disease, pulm HTN or undiagnosed RAUDEL. Renal US essentially negative. Avoid nephrotoxins, I&O's. Will continue to monitor. Subjective Interval history: Sitting on edge of bed. Denies SOB or CP. No new complaints. Documented urine output 1110cc. Objective - Vital Signs Vital signs: Vital Signs Temp Pulse Resp BP Pulse Ox 06/24/17 07:20 97.8 F 61 16 136/66 97 06/24/17 02:50 98.6 F 59 16 117/60 93 06/23/17 23:04 98.4 F 56 16 122/68 92 06/23/17 18:46 97.4 F L 66 16 144/85 92 06/23/17 15:46 97.8 F 61 15 119/74 96 06/23/17 12:15 97.4 F L 61 20 110/66 96 Intake and Output 06/23/17 06/24/17 06/24/17 23:59 07:59 15:59 Output Total 660 / 660 250 / 250 Balance -660 / -660 -250 / -250 Output: Urine 660 / 660 250 / 250 Other: Weight 144.515 kg Blood Glucose* 320 188 Patient Weight 06/24/17 23:59 Weight 144.515 kg - General Appearance General appearance: Present: well-developed, well-nourished, appears started age , obese EENT: Present: mucous membranes moist Neck: Present: no JVD Respiratory: Present: clear Cardiology: Present: edema, regular rate, regular rhythm Additional Comments: mild pitting LE Gastrointestinal: Present: normoactive bowel sounds, no tenderness, obese Integumentary: Present: warm and dry Neurologic: Present: alert and oriented x3 - Lab 06/23/17 05:44 06/24/17 06:19 Most recent lab results Calcium 9.1 mg/dL (8.6-10.3) 06/24/17 06:19 Magnesium 2.1 mg/dL (1.6-2.6) 06/23/17 05:44 Consult Discharge Plan - Plan Referrals: Shivani Rojas, SONAL [Primary Care Provider] -
[2017-06-24] MEDS: 0.9 % Sodium Chloride 1,000 ML IVC SCH (09:48)
[2017-06-25] MEDS: dilTIAZem HCl 60 MG TABLET PO SCH ×3 (01:03→17:22)
[2017-06-25] MEDS: 0.9 % Sodium Chloride 1,000 ML IVC SCH ×2 (03:26→10:10)
[2017-06-25 06:59] LABS: Potassium 4.7 mEq/L (3.5-5.1)
[2017-06-25] MEDS: Multivit/Ca/Min/Fe/FA 1 TAB TABLET PO SCH (08:31)
[2017-06-25] MEDS: *HR* SitaGLIPtin 25 MG TABLET PO SCH (08:31)
[2017-06-25] MEDS: Metoprolol 100 MG TABLET PO SCH ×2 (08:31→20:55)
[2017-06-25] MEDS: Gabapentin 100 MG CAPSULE PO SCH ×3 (08:31→20:55)
[2017-06-25] MEDS: Isosorbide MONOnitrate (24 HR) 30 MG TAB.ER.24H PO SCH (08:31)
[2017-06-25] MEDS: Insulin LISPRO 300 UNITS/3 ML VIAL SQ SCH ×4 (08:32→20:54)
[2017-06-25] MEDS: (Omega-3/Dha/Epa/Fish Oil [Fish Oil 1,000 Mg Softgel] PO SCH (08:43)
[2017-06-25] MEDS: Insulin DETEMIR 100 UNIT/ML X5UNITS SQ SCH ×2 (08:43→20:55)
--- NOTE | 2017-06-25 08:43 | Internal Med Progress Note ---
Date of Encounter: 06/25/17 Time of Encounter: 08:40 - Time Spent With Patient (1) Acute renal failure Current visit: No Status: Acute Acute on chronic renal failure, history of chronic kidney disease of stage III, caused by metolazone, Lasix and lisinopril Continue to Hold all 3 Start low dose of BUmex creatinine was above 7 and bun over 130, making urine consulted nephrology Continue mild hydration, has history of diastolic CHF for which he was started on a daily dose of Zaroxolyn and high doses of Lasix Xarelto is on hold until his renal function improves further, uses Xarelto for history of A. fib Qualifiers: Acute renal failure type: unspecified Qualified Code(s): N17.9 - Acute kidney failure, unspecified (2) Obesity, Class III, BMI 40-49.9 (morbid obesity) Current visit: No Status: Chronic Chronic due to excessive caloric intake (3) DM type 2 causing CKD stage 3 Current visit: No Status: Chronic Uses Januvia and metformin, metformin is on hold sliding scale Qualifiers: Diabetes mellitus vermin exterminator insulin use: unspecified vermin exterminator insulin use status Qualified Code(s): E11.22 - Type 2 diabetes mellitus with diabetic chronic kidney disease; N18.3 - Chronic kidney disease, stage 3 (moderate); N18.3 - Chronic kidney disease, stage 3 (moderate) (4) Hyperlipidemia Current visit: No Status: Chronic Stable Qualifiers: Hyperlipidemia type: pure hypercholesterolemia Qualified Code(s): E78.00 - Pure hypercholesterolemia, unspecified; E78.0 - Pure hypercholesterolemia (5) Hypertension Current visit: No Status: Chronic Hold lisinopril, may use hydralazine IV as needed Qualifiers: Hypertension type: essential hypertension Qualified Code(s): I10 - Essential (primary) hypertension (6) DVT prophylaxis Current visit: No Status: Acute - Subjective Interval history: No new complaints. He came in slightly short of breath last night. Denies any chest pain, no abdominal pain, no dysuria, no diarrhea, no fevers - Constitutional Vitals: Temp Pulse Resp BP Pulse Ox 97.7 F 66 18 154/82 96 06/25/17 07:47 06/25/17 07:47 06/25/17 07:47 06/25/17 07:47 06/25/17 07:47 General appearance: Present: A&O X 3, morbidly obese Exam: - Head Head exam: Present: atraumatic, normocephalic - Eye Eye exam: Present: PERRL, conjuntiva pink, sclera anicteric Pupils: Present: PERRL - Neck Neck exam general surgery: Present: supple, trachea midline. Absent: lymphadenopathy - Respiratory Respiratory exam: Present: decreased breath sounds, CTAB. Absent: accessory muscle use, rales, rhonchi, wheezes - Cardiovascular Cardiovascular exam: Present: RRR, +S1, +S2. Absent: diastolic murmur, gallop, rubs, systolic murmur - GI/Abdominal GI/Abdominal exam: Present: distended, normal bowel sounds, soft, no peritoneal signs. Absent: tenderness - Extremities Exam Extremities exam: Present: warm, radial pulses palpable and symmetrical. Absent : calf tenderness, cyanotic, pedal edema - Neurological Exam Neurological exam: Present: CN II-XII intact, oriented X3, no focal deficits. Absent: pronater drift, facial droop, speech deficit - Skin Skin exam: Present: dry, intact Internal Medicine: Result - Labs CBC & Chem 7: 06/23/17 05:44 06/25/17 06:07 Labs: BMP 06/25/17 06:07 Sodium 140 Potassium 4.7 Chloride 114 H Carbon Dioxide 20 L BUN 83 H Creatinine 3.19 H Glucose 230 H Calcium 9.0 Consult Discharge Plan - Plan Referrals: Shivani Rojas CNP [Primary Care Provider] - 07/01/17 2:00 pm
[2017-06-25] MEDS: Bumetanide 1 MG/4 ML VIAL IVP SCH ×2 (10:10→17:22)
--- NOTE | 2017-06-25 10:58 | Nephrology Progress Note ---
Date of Encounter: 06/25/17 Time of Encounter: 10:35 - Assessment and Plan (1) ALEXUS (acute kidney injury) Current Visit: Yes Status: Acute ALEXUS most likely related to chronic high dose diuretic with recent addition of Metolazone related to diastolic heart failure superimposed on undiagnosed CKD most likely in setting of diabetes and hypertension. Baseline creat 1.3-1.7. Renal fct improving, creat 3.19. Noted IV bolus with Bumex 1mg IV ordered. Concern for right sided heart failure/valve disease, pulm HTN or undiagnosed RAUDEL. Renal US essentially negative. Avoid nephrotoxins, I&O's. Will continue to monitor. Subjective Interval history: Laying in bed, HOB 20 degress. Denies SOB or CP. States hands feel swollen today. Documented urine output 1100cc. Objective - Vital Signs Vital signs: Vital Signs Temp Pulse Resp BP Pulse Ox 06/25/17 07:47 97.7 F 66 18 154/82 96 06/25/17 03:27 97.5 F L 62 16 132/78 96 06/24/17 22:49 97.7 F 66 16 119/68 94 06/24/17 19:17 97.4 F L 69 16 119/70 94 06/24/17 15:35 98.2 F 66 18 115/72 96 06/24/17 11:21 97.7 F 61 18 113/69 95 Intake and Output 06/24/17 06/25/17 06/25/17 23:59 07:59 15:59 Intake Total 30 / 30 1000 / 1000 120 / 120 Output Total 850 / 850 350 / 350 250 / 250 Balance -820 / -820 650 / 650 -130 / -130 Intake: IV Fluids 1000 / 1000 0.9 % Sodium Chloride 1,000 ML 1000 / 1000 @ 60 mls/hr IVC .[id number] [facility] Rx #:[id number] Oral 30 / 30 120 / 120 Output: Urine 850 / 850 350 / 350 250 / 250 Other: Meal Breakfast Percent of Meal Consumed 100% Weight 148.325 kg Blood Glucose* 291 235 Patient Weight 06/25/17 23:59 Weight 148.325 kg - General Appearance General appearance: Present: well-developed, well-nourished, appears started age , obese EENT: Present: mucous membranes moist Neck: Present: no JVD Respiratory: Present: clear Cardiology: Present: edema, regular rate, regular rhythm Additional Comments: mild- 1+ pitting edema LE Gastrointestinal: Present: normoactive bowel sounds, no tenderness Integumentary: Present: warm and dry Neurologic: Present: alert and oriented x3 - Lab 06/23/17 05:44 06/25/17 06:07 Most recent lab results Calcium 9.0 mg/dL (8.6-10.3) 06/25/17 06:07 Magnesium 2.1 mg/dL (1.6-2.6) 06/23/17 05:44 Consult Discharge Plan - Plan Referrals: Shivani Rojas NURSES' AIDE [Primary Care Provider] - 07/01/17 2:00 pm
[2017-06-26] MEDS: dilTIAZem HCl 60 MG TABLET PO SCH ×2 (02:09→08:38)
[2017-06-26 04:59] LABS: Potassium 4.3 mEq/L (3.5-5.1)
[2017-06-26 07:31] VITALS: BP 140/74
[2017-06-26] MEDS: Multivit/Ca/Min/Fe/FA 1 TAB TABLET PO SCH (07:31)
[2017-06-26] MEDS: Isosorbide MONOnitrate (24 HR) 30 MG TAB.ER.24H PO SCH (07:31)
[2017-06-26] MEDS: Gabapentin 100 MG CAPSULE PO SCH (07:32)
[2017-06-26] MEDS: Metoprolol 100 MG TABLET PO SCH (07:32)
[2017-06-26] MEDS: Bumetanide 1 MG/4 ML VIAL IVP SCH (07:32)
[2017-06-26] MEDS: *HR* SitaGLIPtin 25 MG TABLET PO SCH (07:32)
[2017-06-26] MEDS: 0.9 % Sodium Chloride 1,000 ML IVC SCH (07:36)
[2017-06-26] MEDS: Insulin LISPRO 300 UNITS/3 ML VIAL SQ SCH (07:36)
[2017-06-26] MEDS: (Omega-3/Dha/Epa/Fish Oil [Fish Oil 1,000 Mg Softgel] PO SCH (07:48)
[2017-06-26] MEDS: Insulin DETEMIR 100 UNIT/ML X5UNITS SQ SCH (08:36)
--- NOTE | 2017-06-26 08:43 | Nephrology Progress Note ---
Date of Encounter: 06/26/17 Time of Encounter: 08:10 - Assessment and Plan (1) ALEXUS (acute kidney injury) Current Visit: Yes Status: Acute ALEXUS most likely related to chronic high dose diuretic with recent addition of Metolazone related to diastolic heart failure superimposed on undiagnosed CKD most likely in setting of diabetes and hypertension. Baseline creat 1.3-1.7. Renal fct improving, creat 3.06 with addition of Bumex. Concern for right sided heart failure/valve disease, pulm HTN or undiagnosed RAUDEL. Renal US essentially negative. Avoid nephrotoxins, I&O's. Will continue to monitor. If discharged, will see in office in two weeks with RFP at one and two weeks. Subjective Interval history: Laying in bed, HOB 20 degress. Denies SOB or CP. States feeling good and wants to go home. Documented urine output 1200cc. Objective - Vital Signs Vital signs: Vital Signs Temp Pulse Resp BP Pulse Ox 06/26/17 07:16 97.8 F 67 18 140/74 94 06/26/17 02:26 98.1 F 64 16 140/67 92 06/26/17 02:09 59 06/25/17 22:33 97.9 F 64 16 129/70 92 06/25/17 18:37 97.8 F 68 15 134/77 96 06/25/17 15:57 98.4 F 68 14 95/45 94 06/25/17 11:31 97.4 F L 64 18 112/67 95 Intake and Output 06/25/17 06/26/17 06/26/17 23:59 07:59 15:59 Intake Total 500 / 500 Output Total 600 / 600 Balance -100 / -100 Intake: IV Fluids 500 / 500 0.9 % Sodium Chloride 1,000 ML 500 / 500 @ 40 mls/hr IVC .Q24H [facility] Rx#: [id number] Output: Urine 600 / 600 Other: Blood Glucose* 325 199 - General Appearance General appearance: Present: well-developed, well-nourished, appears started age , obese EENT: Present: mucous membranes moist Neck: Present: no JVD Respiratory: Present: clear Cardiology: Present: no edema, regular rate, regular rhythm Gastrointestinal: Present: normoactive bowel sounds, no tenderness Integumentary: Present: warm and dry Neurologic: Present: alert and oriented x3 - Lab 06/23/17 05:44 06/26/17 03:25 Most recent lab results Calcium 9.0 mg/dL (8.6-10.3) 06/26/17 03:25 Magnesium 2.1 mg/dL (1.6-2.6) 06/23/17 05:44 Consult Discharge Plan - Plan Referrals: Shivani Rojas CNP [Primary Care Provider] - 07/01/17 2:00 pm
--- NOTE | 2017-06-26 09:14 | Discharge Summary ---
- NOTES TO OUTPATIENT PROVIDER Notes to Outpatient Provider: Follow-up with Dr. Galvan/nephrology within the next 2 weeks. Start Bumex 1 mg the morning and 0.5 mg in the afternoon. Fluid restriction. Stop xarelto, continue aspirin. 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 Qualified Code(s): E11.22 - Type 2 diabetes mellitus with diabetic chronic kidney disease; N18.3 - Chronic kidney disease, stage 3 (moderate); N18.3 - Chronic kidney disease, stage 3 (moderate) (3) Obesity, Class III, BMI 40-49.9 (morbid obesity) Priority: Secondary Status: Chronic (4) Diastolic heart failure Priority: Secondary Status: Chronic Qualifiers: Heart failure chronicity: acute on chronic Qualified Code(s): I50.33 - Acute on chronic diastolic (congestive) heart failure (5) Chronic edema Priority: Secondary Status: Chronic (6) Atrial fibrillation Priority: Secondary Status: Acute Qualifiers: Atrial fibrillation type: paroxysmal Qualified Code(s): I48.0 - Paroxysmal atrial fibrillation (7) RAUDEL (obstructive sleep apnea) Priority: Secondary Status: Acute (8) Hypertension Priority: Secondary Status: Chronic Qualifiers: Hypertension type: essential hypertension Qualified Code(s): I10 - Essential (primary) hypertension Hospital course: Mr. Hernández is a 67 year old male with history of diastolic heart failure on Lasix 80 mg twice a day, atrial fibrillation status post ablation on Xarelto, CKD stage III, diabetes insulin-dependent, obesity, hypertension, hyperlipidemia. The patient was at his primary physician's office, had lab drawn which came back showing a creatinine of 7 , and BUN over 130, the patient was then sent to the emergency room at [facility] [place] and then transferred here for admission. He denied any shortness of breath, had an abnormal taste for about 2 days prior to admission. He was not confused, still complained of persistent leg edema no change in appetite. Repeat creatinine was down to 6.8. The patient was given fluids, metolazone, Lasix and the [facility] were held. His creatinine has decreased to slowly and today is 3.06, he was started on a low dose of Bumex. His case was evaluated by nephrology who is okay with the patient's discharge. During his hospitalization, Xarelto was on hold due to his renal function, options were discussed with the patient regarding CVA prophylaxis and he has chosen to continue aspirin alone until his kidney function improves. Was given the option to stay another day and continue fluids but prefers to go home at this point. Risks were explained - Time Spent with Patient Total time spent providing and/or coordinating discharge services: Greater than 30 minutes (40 min) - Discharge Medications Prescriptions: Aspirin [Lo-Dose Aspirin EC] 81 mg PO DAILY #30 tablet. Bumetanide [Bumex] 0.5 mg PO BIDDIURETIC #90 tablet GlipiZIDE [Glipizide Xl] 10 mg PO DAILY #30 tab.er.24 Lisinopril 5 mg PO DAILY #30 tablet Home Medications: Atorvastatin [Lipitor] 20 mg PO DAILY 10/17/15 [History] Multivitamin [One Daily Essential] 1 tab PO DAILY 10/17/15 [History] [place]-3/Dha/Epa/Fish Oil [Fish Oil 1,000 mg Softgel] 1,000 mg PO DAILY 10/17/15 [History] Saw/Vit E/Sod Rosa/Lyc/Beta/Pyg [Prostate Health Caplet] 1 tab PO DAILY 10/17/15 [History] Terazosin [Hytrin] 5 mg PO DAILY 10/17/15 [History] Albuterol Sulfate [Albuterol Inhaler] 2 puff IH Q4H PRN 07/21/16 [History] Insulin Glargine,Hum.rec.anlog [Lantus Solostar] 90 unit SQ BID 07/21/16 [ History] Isosorbide MONOnitrate (24 HR) [Imdur] 30 mg PO DAILY 07/21/16 [History] Metoprolol [Lopressor] 150 mg PO BID 07/21/16 [History] Docusate [Colace] 100 mg PO DAILY PRN 04/04/17 [History] Gabapentin [Neurontin] 100 mg PO TID 04/04/17 [History] dilTIAZem HCl [Cardizem] 60 mg PO Q8H #90 tablet 04/07/17 [Rx] Aspirin [Lo-Dose Aspirin EC] 81 mg PO DAILY #30 tablet. 06/26/17 [Rx] Bumetanide [Bumex] 0.5 mg PO BIDDIURETIC #90 tablet 06/26/17 [Rx] GlipiZIDE [Glipizide Xl] 10 mg PO DAILY #30 tab.er.24 06/26/17 [Rx] Lisinopril 5 mg PO DAILY #30 tablet 06/26/17 [Rx] Allergies/Adverse Reactions: 3 Allergy/AdvReac Type Severity Reaction Status Date / Time sulfamethoxazole Allergy Rash Verified 04/12/16 10:16 [From Bactrim] trimethoprim [From Bactrim] Allergy Rash Verified 04/12/16 10:16 Metolazone AdvReac kidney Verified 06/22/17 12:40 failure per patient Date of admission: 06/22/17 11:42 Primary care physician: Shivani Rojas CNP Consults: 06/22/17 12:28 Consult to Physician [CONS] Routine Consulting Provider: Oseas Galvan Reason for Consult: alexus creatinine 7 Time Notified: 12:29 Call Completed: No - Constitutional Vitals: Temp Pulse Resp BP Pulse Ox 97.8 F 67 18 140/74 94 06/26/17 07:16 06/26/17 07:16 06/26/17 07:16 06/26/17 07:16 06/26/17 07:16 General appearance: Present: A&O X 3, morbidly obese Exam: - Head Head exam: Present: atraumatic, normocephalic - Eye Eye exam: Present: PERRL, conjuntiva pink, sclera anicteric Pupils: Present: PERRL - Neck Neck exam general surgery: Present: supple, trachea midline. Absent: lymphadenopathy - Respiratory Respiratory exam: Present: decreased breath sounds, CTAB. Absent: accessory muscle use, rales, rhonchi, wheezes - Cardiovascular Cardiovascular exam: Present: RRR, +S1, +S2. Absent: diastolic murmur, gallop, rubs, systolic murmur - GI/Abdominal GI/Abdominal exam: Present: distended, normal bowel sounds, soft, no peritoneal signs. Absent: tenderness - Extremities Exam Extremities exam: Present: warm, radial pulses palpable and symmetrical. Absent : calf tenderness, cyanotic, pedal edema - Neurological Exam Neurological exam: Present: CN II-XII intact, oriented X3, no focal deficits. Absent: pronater drift, facial droop, speech deficit - Skin Skin exam: Present: dry, intact - Patient Status Disposition: Home, Self-Care Condition: Fair Overall status at discharge: patient is progressing back to baseline - Discharge Instructions Follow Up With: Shivani Rojas CNP [Primary Care Provider] - 07/01/17 2:00 pm Additional Instructions: Follow-up with primary care physician within the next 7 days. Follow-up with Dr. Galvan/nephrology within the next 2 weeks. Start Bumex 1 mg the morning and 0.5 mg in the afternoon. Fluid restriction. Stop xarelto, continue aspirin. Stop Invokamet which contains metformin. Decrease dose of lisinopril from 20 mg down to 5 mg daily. - Diet and Activity Activity: increase activity as tolerated Diet: diabetic diet
== END 2017-06-26 11:18 | disposition home or self-care (01) | DRG 682 ==
LOC: 2SOUTHHOLD 11:42 → 3BNU 06-23 05:30
PROVIDERS: ADMIT Internal Medicine; ATTEND Internal Medicine

== ENCOUNTER 2018-12-28 18:04 | Observation (INO) ==
--- NOTE | 2018-12-28 18:11 | Emergency Department Note ---
Disposition Clinical Impression: Lower gastrointestinal hemorrhage, Anemia, Hyperglycemia, Acute blood loss anemia, Rectal bleeding CKD (chronic kidney disease) Qualifiers: Chronic kidney disease stage: stage 3 (moderate) Qualified Code(s): N18.3 - Chronic kidney disease, stage 3 (moderate) Disposition: Admitted As Inpatient Condition: Fair Time of Disposition: 21:40 General Adult HPI - General Stated complaint: rectal bleeding Time Seen by Provider: 12/28/18 18:08 Nursing Notes Reviewed: Yes Vital Signs Reviewed: Yes - History of Present Illness HPI Narrative: 68-year-old male who presents the emergency department with complaints of rectal bleeding. The patient states this started this morning, large volume of bright red blood. He has noted fatigue increasingly over today. Denies any chest pain, shortness of breath, nausea, vomiting, abdominal pain. The patient states he has been on iron transfusions for anemia for quite some time but has not had a colonoscopy in approximately 10 years. At that time his colonoscopy showed several polyps but he has not followed up since then. He takes Xarelto for atrial fibrillation. - Related Data Home Medications Medication Instructions Recorded Confirmed Atorvastatin [Lipitor] 20 mg PO DAILY 10/17/15 12/28/18 Multivitamin [One Daily Essential] 1 tab PO DAILY 10/17/15 12/28/18 [place]-3/Dha/Epa/Fish Oil [Fish Oil 1,000 mg PO DAILY 10/17/15 12/28/18 1,000 mg Softgel] Terazosin [Hytrin] 5 mg PO DAILY 10/17/15 12/28/18 Albuterol Sulfate [Proventil 2 puff IH Q4H PRN 07/21/16 12/28/18 Inhaler] Isosorbide MONOnitrate (24 HR) 30 mg PO DAILY 07/21/16 12/28/18 [Imdur] Metoprolol [Lopressor] 150 mg PO BID 07/21/16 12/28/18 Bumetanide [Bumex] 2 mg PO DAILY 10/12/17 12/28/18 Diltiazem HCl [Cardizem] 30 mg PO BID 10/12/17 12/29/18 Bisacodyl [Dulcolax] 5 mg PO DAILY PRN 12/29/18 12/28/18 Budesonide/Formoterol 160/4.5 2 puff PO BID 12/29/18 12/29/18 [Symbicort 160/4.5] Bumetanide [Bumex] 0.5 mg PO 1200 12/29/18 12/29/18 Docusate [Colace] 100 mg PO DAILY PRN 12/29/18 12/29/18 Gabapentin [Neurontin] 600 mg PO BID 12/29/18 12/30/18 Insulin ASPART [Novolog Flexpen] 55 unit SQ TIDWM 12/29/18 12/29/18 Insulin Glargine [Lantus] 120 unit SQ BID 12/29/18 12/29/18 Ipratropium/Albuterol Neb [Duoneb] 3 ml IH QID PRN 12/29/18 12/29/18 Lisinopril [Zestril] 20 mg PO DAILY 12/29/18 12/29/18 [place]-3/Dha/Epa/Fish Oil [Fish Oil 1,000 mg PO DAILY 12/29/18 12/29/18 1,000 mg Softgel] Preservision Areds 2 Softgel 1 cap PO BID 12/29/18 12/29/18 Rivaroxaban [Xarelto] 20 mg PO DAILY 12/29/18 12/29/18 Tamsulosin HCl [Flomax] 0.4 mg PO DAILY 12/29/18 12/29/18 Gabapentin [Neurontin] 1,200 mg PO HS 12/30/18 12/30/18 Previous Rx's Medication Instructions Recorded Acetaminophen [Tylenol] 650 mg PO Q6HR PRN tablet 10/14/17 Allergies Allergy/AdvReac Type Severity Reaction Status Date / Time sulfamethoxazole Allergy Rash Verified 08/21/17 13:27 [From Bactrim] trimethoprim [From Bactrim] Allergy Rash Verified 08/21/17 13:27 Metolazone AdvReac kidney Verified 08/21/17 13:27 failure per patient Review of Systems: ROS per history of present illness, all other systems reviewed and negative or normal. All systems ED: reviewed and negative except as stated. Review of Systems: As Per HPI Past Medical History - Past Medical History Medical history: Reports: CHF (History of diastolic heart failure), diabetes, hyperlipidemia, hypertension, kidney stones, renal disease (Chronic kidney disease) Surgical history: Reports: cholecystectomy, ureteral stent, other (Cardiac ablation for his atrial flutter 07/2016) Psychiatric history: Reports: no psych history - Social History Smoking Status: Former smoker Smokeless Tobacco Status: No Alcohol use: Reports: rarely Drug use: Reports: none Physical Exam General: Conversant. No apparent distress. Follow commands. Appears stated age. Neck: No JVD. Trachea midline. Neck supple. Eyes: PERRL. No scleral icterus. Scleral pallor HENT: Normocephalic and atraumatic. Moist mucus membranes. Cardiovascular: Regular rate and rhythm. Normal S1 and S2. No murmurs appreciated. Normal capillary refill. Extremities well perfused with 2+ distal pulses bilaterally. No edema. Pulmonary: Normal and equal breath sounds bilaterally, anteriorly and posteriorly. No wheezes, rales, or rhonchi. Not in respiratory distress. Speaks in full sentences. Abdomen: Soft, nondistended, and tontender. No bruits or masses. No guarding. Neuro: Alert and oriented x3. No slurred speech. No focal deficits noted. Skin: No rashes noted on visualized skin. Musculoskeletal: No bony abnormalities visualized. Moves all extremities. Psych: Normal mood. Pleasant. Makes appropriate eye contact. Course Vital Signs Temperature 97.8 F 12/28/18 18:10 Pulse Rate 89 12/28/18 18:10 Respiratory Rate 16 12/28/18 18:10 Blood Pressure 165/78 12/28/18 18:10 O2 Sat by Pulse Oximetry 97 12/28/18 18:10 Temperature 97.8 F 12/28/18 18:10 Pulse Rate 89 12/28/18 18:10 Respiratory Rate 16 12/28/18 18:10 Blood Pressure 165/78 12/28/18 18:10 O2 Sat by Pulse Oximetry 97 12/28/18 18:10 Oxygen Delivery Oxygen Delivery Room Air Medical Decision Making - [facility] Narrative Medical decision making narrative: 68-year-old male with history of A. fib on Xarelto who presents the emergency department with complaints of active bleeding. The patient states this started overnight and he had large bloody bright red bowel movements. He has been feeling weak all day and slightly lightheaded. He was seen at the urgent care at the [facility] and sent to the emergency department here for reevaluation. On arrival patient is not tachycardic, hypotensive or in acute distress. He does have mild diffuse abdominal pain and rectal examination shows positive stool occult but no gross hematochezia. He has had no episodes here in the emergency department of hematochezia. He denies any chest pain, shortness of breath. Patient's hemoglobin 8.7, most recent previous lab work performed last year shows approximate baseline hemoglobin of 11. Patient also has CKD without significant change. CT abdomen/pelvis shows no evidence of acute intracranial pathology. There is fatty infiltration of the liver and splenome meghana as well as prostatic megaly. Given the likely acute drop in hemoglobin, positive fecal cold and generalized weakness along with current anticoagulation status patient will require overnight monitoring and possible colonoscopy. Discussed case with on-call hospitalist Dr. Aguilar who agrees with plan for admission and accepts the patient to the inpatient service. Patient agrees with and understands course of treatment plan including plan for admission. All questions answered. - Medical Records Medical records reviewed: Yes I reviewed the patient's medical records. - Lab Data Lab results reviewed: Yes I reviewed the patient's lab results. Result diagrams: 12/30/18 03:59 12/30/18 03:59 Lab Results 12/28/18 12/28/18 12/28/18 Range/Units 18:51 18:51 19:27 WBC 7.7 (4.3-11.1) K/mcL RBC 3.77 L (4.19-5.50) M/mcL Hgb 8.7 L (12.9-16.9) g/dL Hct 29.7 L (37.5-50.1) % MCV 78.8 L (83.0-100.0) fL MCH 23.1 L (28.0-33.3) pg MCHC 29.3 L (31.6-35.5) g/dL RDW 21.6 H (11.5-14.5) % Plt Count 154 (140-400) K/mcL MPV 8.8 L (9.4-12.4) fL Immature Gran % 0.4 (0-4) % Seg Neutrophils % 67.6 % Lymphocytes % 23.6 % Monocytes % 5.9 % Eosinophils % 2.2 % Basophils % 0.3 % Neutrophils # 5.2 (1.6-8.9) K/mcL Lymphocytes # 1.8 (0.6-4.6) K/mcL Monocytes # 0.5 (0.0-1.3) K/mcL Eosinophils # 0.2 (0.0-0.6) K/mcL Basophils # 0.0 (0.0-0.2) K/mcL Sodium 139 (136-145) mEq/L Potassium 4.6 (3.5-5.1) mEq/L Chloride 100 (98-107) mEq/L Carbon Dioxide 30 H (23-29) mEq/L BUN 22 (8-23) mg/dL Creatinine 1.68 H (0.70-1.30) mg/dL Est GFR ( Amer) 50 L (> 60) Est GFR (Non-Af Amer) 41 L (> 60) BUN/Creatinine Ratio 13 (6-26) Glucose 389 H (70-105) mg/dL Calculated Osmolality 307 H (280-300) Calcium 8.8 (8.6-10.3) mg/dL Stool Occult Bld Scrn (Negative) Blood Type O POSITIVE Antibody Screen NEGATIVE 12/28/18 Range/Units 20:46 WBC (4.3-11.1) K/mcL RBC (4.19-5.50) M/mcL Hgb (12.9-16.9) g/dL Hct (37.5-50.1) % MCV (83.0-100.0) fL MCH (28.0-33.3) pg MCHC (31.6-35.5) g/dL RDW (11.5-14.5) % Plt Count (140-400) K/mcL MPV (9.4-12.4) fL Immature Gran % (0-4) % Seg Neutrophils % % Lymphocytes % % Monocytes % % Eosinophils % % Basophils % % Neutrophils # (1.6-8.9) K/mcL Lymphocytes # (0.6-4.6) K/mcL Monocytes # (0.0-1.3) K/mcL Eosinophils # (0.0-0.6) K/mcL Basophils # (0.0-0.2) K/mcL Sodium (136-145) mEq/L Potassium (3.5-5.1) mEq/L Chloride (98-107) mEq/L Carbon Dioxide (23-29) mEq/L BUN (8-23) mg/dL Creatinine (0.70-1.30) mg/dL Est GFR ( Amer) (> 60) Est GFR (Non-Af Amer) (> 60) BUN/Creatinine Ratio (6-26) Glucose (70-105) mg/dL Calculated Osmolality (280-300) Calcium (8.6-10.3) mg/dL Stool Occult Bld Scrn Positive A (Negative) Blood Type Antibody Screen - Radiology Data Radiology results reviewed: Yes I reviewed the patient's radiology results. Abdomen/Pelvis CT 12/28/18 20:26 IMPRESSION: Fatty infiltration of the liver. Splenomegaly. Prostate gland enlargement. Increased density in the lower anterior subcutaneous mesenteric fat, nonspecific. Correlation for severe cellulitis is recommended. D/ / Jasmin Louis Cha, MD / Jasmin Louis Cha, MD Interpreting Provider: Jasmin Louis Cha, MD - EKG Data EKG #1 EKG attestation: Yes I reviewed and interpreted this EKG. EKG results narrative: Sinus rhythm rate of 85. Normal axis. Prolonged CA otherwise normal intervals. No acute ischemic ST or T-wave abnormalities. No prior for comparison Attestation Statement - Attestation Attestation: I have seen this patient with the resident physician, I have personally evaluated this patient. I had reviewed the chart and document dictation by the resident physician and aM in agreement with the information documented by the resident physician. Please see documentation by the resident physician for complete chart including past medical history, family medical history, review of systems, current history and physical and laboratory and imaging studies. I was present for all procedures, provided direct supervision for all procedures, was present for the entirety of all procedures and provided direct guidance during the procedures. Please see documentation by the resident physician for any procedures performed. I have reviewed all interpretations of EKGs, and reviewed all EKGs performed on patient's as well. I have also reviewed reports of imaging as provided by radiology.
[2018-12-28] MEDS ORDERED: Isovue-370 500 ML BOTTLE IVP ONE (18:31)
[2018-12-28 19:09] LABS: Basophils % 0.3 %; Eosinophils # 0.2 K/mcL (0.0-0.6); Eosinophils % 2.2 %; Hematocrit 29.7 % (37.5-50.1); Hemoglobin 8.7 g/dL (12.9-16.9); Immature Granulocytes % 0.4 % (0-4); Lymphocytes # 1.8 K/mcL (0.6-4.6); Lymphocytes % 23.6 %; Mean Corpuscular HGB Conc 29.3 g/dL (31.6-35.5); Mean Corpuscular Hemoglobin 23.1 pg (28.0-33.3); Mean Corpuscular Volume 78.8 fL (83.0-100.0); Mean Platelet Volume 8.8 fL (9.4-12.4); Monocytes # 0.5 K/mcL (0.0-1.3); Monocytes % 5.9 %; Neutrophils # 5.2 K/mcL (1.6-8.9); Platelet Count 154 K/mcL (140-400); Red Blood Count 3.77 M/mcL (4.19-5.50); Red Cell Distribution Width 21.6 % (11.5-14.5); Segmented Neutrophils % 67.6 %; White Blood Count 7.7 K/mcL (4.3-11.1)
[2018-12-28 19:26] LABS: Calcium 8.8 mg/dL (8.6-10.3); Potassium 4.6 mEq/L (3.5-5.1)
[2018-12-28] MEDS ORDERED: Insulin Regular, Human 100 UNIT/ML SQ ONE (20:26)
[2018-12-28] MEDS ORDERED: 0.9 % Sodium Chloride 1,000 ML IVC ONE (20:26)
--- NOTE | 2018-12-28 20:51 | Emergency Department Note ---
Disposition Clinical Impression: Lower gastrointestinal hemorrhage, Anemia, Hyperglycemia Disposition: Home, Self-Care Condition: Fair [facility] Care Provider[facility] - Forms: ED Satisfaction Letter Time of Disposition: 21:36 General Adult HPI - General Chief complaint: ED GI Bleed Stated complaint: rectal bleeding Time Seen by Provider: 12/28/18 18:08 Source: EMS Mode of arrival: ambulatory Limitations: no limitations Nursing Notes Reviewed: Yes Vital Signs Reviewed: Yes - History of Present Illness Pain Scale: 4 - Related Data Home Medications Medication Instructions Recorded Confirmed Atorvastatin [Lipitor] 20 mg PO DAILY 10/17/15 10/12/17 Multivitamin [One Daily Essential] 1 tab PO DAILY 10/17/15 10/12/17 [place]-3/Dha/Epa/Fish Oil [Fish Oil 1,000 mg PO DAILY 10/17/15 10/12/17 1,000 mg Softgel] Saw/Vit E/Sod Rosa/Lyc/Beta/Pyg 1 tab PO DAILY 10/17/15 10/12/17 [Prostate Health Caplet] Terazosin [Hytrin] 5 mg PO DAILY 10/17/15 10/12/17 Albuterol Sulfate [Proventil 2 puff IH Q4H PRN 07/21/16 10/12/17 Inhaler] Isosorbide MONOnitrate (24 HR) 30 mg PO DAILY 07/21/16 10/11/17 [Imdur] Metoprolol [Lopressor] 150 mg PO BID 07/21/16 10/12/17 Lisinopril 5 mg PO QPM 08/21/17 10/12/17 Rivaroxaban [Xarelto] 15 mg PO 1700 10/11/17 10/12/17 Bumetanide [Bumex] 2 mg PO DAILY 10/12/17 10/12/17 Diltiazem HCl [Cardizem] 60 mg PO Q8HR 10/12/17 10/12/17 Previous Rx's Medication Instructions Recorded Acetaminophen [Tylenol] 650 mg PO Q6HR PRN tablet 10/14/17 Bisacodyl [Dulcolax] 5 mg PO DAILY tablet 10/14/17 Gabapentin [Neurontin] 300 mg PO TID 30 Days #90 capsule 10/14/17 Insulin ASPART [Novolog Flexpen] 100 unit SQ TID 30 Days #1 10/14/17 insuln.pen Insulin Glargine,Hum.rec.anlog 100 unit SQ BID #0 10/14/17 [Lantus Solostar] Allergies Allergy/AdvReac Type Severity Reaction Status Date / Time sulfamethoxazole Allergy Rash Verified 08/21/17 13:27 [From Bactrim] trimethoprim [From Bactrim] Allergy Rash Verified 08/21/17 13:27 Metolazone AdvReac kidney Verified 08/21/17 13:27 failure per patient All systems ED: reviewed and negative except as stated. Review of Systems: As Per HPI Past Medical History - Past Medical History Medical history: Reports: CHF, diabetes, hyperlipidemia, hypertension, kidney stones, renal disease Surgical history: Reports: cholecystectomy, ureteral stent, other (Cardiac ablation for his atrial flutter 07/2016) Psychiatric history: Reports: no psych history - Social History Smoking Status: Former smoker Smokeless Tobacco Status: No Alcohol use: Reports: rarely Drug use: Reports: none Physical Exam - General Limitations: no limitations General appearance: alert, in no apparent distress Course Vital Signs Temperature 97.8 F 12/28/18 18:10 Pulse Rate 89 12/28/18 18:10 Respiratory Rate 16 12/28/18 18:10 Blood Pressure 165/78 12/28/18 18:10 O2 Sat by Pulse Oximetry 97 12/28/18 18:10 Temperature 97.8 F 12/28/18 18:10 Pulse Rate 89 12/28/18 18:10 Respiratory Rate 16 12/28/18 18:10 Blood Pressure 165/78 12/28/18 18:10 O2 Sat by Pulse Oximetry 97 12/28/18 18:10 Oxygen Delivery Oxygen Delivery Room Air Medical Decision Making - Lab Data Result diagrams: 12/28/18 18:51 12/28/18 18:51 Lab Results 12/28/18 12/28/18 12/28/18 Range/Units 18:51 18:51 19:27 WBC 7.7 (4.3-11.1) K/mcL RBC 3.77 L (4.19-5.50) M/mcL Hgb 8.7 L (12.9-16.9) g/dL Hct 29.7 L (37.5-50.1) % MCV 78.8 L (83.0-100.0) fL MCH 23.1 L (28.0-33.3) pg MCHC 29.3 L (31.6-35.5) g/dL RDW 21.6 H (11.5-14.5) % Plt Count 154 (140-400) K/mcL MPV 8.8 L (9.4-12.4) fL Immature Gran % 0.4 (0-4) % Seg Neutrophils % 67.6 % Lymphocytes % 23.6 % Monocytes % 5.9 % Eosinophils % 2.2 % Basophils % 0.3 % Neutrophils # 5.2 (1.6-8.9) K/mcL Lymphocytes # 1.8 (0.6-4.6) K/mcL Monocytes # 0.5 (0.0-1.3) K/mcL Eosinophils # 0.2 (0.0-0.6) K/mcL Basophils # 0.0 (0.0-0.2) K/mcL Sodium 139 (136-145) mEq/L Potassium 4.6 (3.5-5.1) mEq/L Chloride 100 (98-107) mEq/L Carbon Dioxide 30 H (23-29) mEq/L BUN 22 (8-23) mg/dL Creatinine 1.68 H (0.70-1.30) mg/dL Est GFR ( Amer) 50 L (> 60) Est GFR (Non-Af Amer) 41 L (> 60) BUN/Creatinine Ratio 13 (6-26) Glucose 389 H (70-105) mg/dL Calculated Osmolality 307 H (280-300) Calcium 8.8 (8.6-10.3) mg/dL Stool Occult Bld Scrn (Negative) Blood Type O POSITIVE Antibody Screen NEGATIVE 12/28/18 Range/Units 20:46 WBC (4.3-11.1) K/mcL RBC (4.19-5.50) M/mcL Hgb (12.9-16.9) g/dL Hct (37.5-50.1) % MCV (83.0-100.0) fL MCH (28.0-33.3) pg MCHC (31.6-35.5) g/dL RDW (11.5-14.5) % Plt Count (140-400) K/mcL MPV (9.4-12.4) fL Immature Gran % (0-4) % Seg Neutrophils % % Lymphocytes % % Monocytes % % Eosinophils % % Basophils % % Neutrophils # (1.6-8.9) K/mcL Lymphocytes # (0.6-4.6) K/mcL Monocytes # (0.0-1.3) K/mcL Eosinophils # (0.0-0.6) K/mcL Basophils # (0.0-0.2) K/mcL Sodium (136-145) mEq/L Potassium (3.5-5.1) mEq/L Chloride (98-107) mEq/L Carbon Dioxide (23-29) mEq/L BUN (8-23) mg/dL Creatinine (0.70-1.30) mg/dL Est GFR ( Amer) (> 60) Est GFR (Non-Af Amer) (> 60) BUN/Creatinine Ratio (6-26) Glucose (70-105) mg/dL Calculated Osmolality (280-300) Calcium (8.6-10.3) mg/dL Stool Occult Bld Scrn Positive A (Negative) Blood Type Antibody Screen Attestation Statement - Attestation Attestation: I have seen this patient with the resident physician, I have personally evaluated this patient. I had reviewed the chart and document dictation by the resident physician and aM in agreement with the information documented by the resident physician. Please see documentation by the resident physician for complete chart including past medical history, family medical history, review of systems, current history and physical and laboratory and imaging studies. I was present for all procedures, provided direct supervision for all procedures, was present for the entirety of all procedures and provided direct guidance during the procedures. Please see documentation by the resident physician for any procedures performed. I have reviewed all interpretations of EKGs, and reviewed all EKGs performed on patient's as well. I have also reviewed reports of imaging as provided by radiology. Patient resists emergency department with chief complaint of rectal bleeding. [facility] but [facility] never figured out where he was bleeding and now he is having bright red blood per rectum. This started yesterday 1 large bloody bowel movement this morning a l ittle bit yesterday, and none since. He has not had another bowel movement since. He denies headache neck pain chest pain shortness of breath or abdominal pain however he states if you push on his lower abdomen does cause him some discomfort no fevers no chills. Vital signs within acceptable limits. He is morbidly obese he appears pale. Cranial nerves are intact. Oropharynx is normal. Lungs are clear. Heart is regular, 2/6 systolic murmur. Abdomen is morbidly obese, some very mild lower abdominal tenderness, no evidence of significant erythema on the abdomen, large pannus. Rectal exam performed by the resident physician revealed no gross blood, but Hemoccult-positive stool no melena. Basic laboratory studies show hemoglobin 8.7, a year and 2 months ago it was 10.7, no blood work in the meantime. Renal panel is within acceptable limits apart from a blood sugar 368 he was given IV fluids for this, I did see a echocardiogram that showed a normal ejection fraction within the last couple of years. He was given subcutaneous insulin as well. CT scan shows no acute intra-abdominal process. Patient will be admitted for further evaluation and management.
[2018-12-28] MEDS ORDERED: Gabapentin 400 MG CAPSULE PO SCH (21:00)
[2018-12-28] MEDS ORDERED: D5% in Water 1,000 ML IVC PRN (22:53)
[2018-12-28] MEDS ORDERED: Dextrose Gel 15 GM/37.5 ML TUBE PO PRN ×2 (22:53)
[2018-12-28] MEDS ORDERED: *HR* Dextrose 50 % in Water (Syg) 50 ML SYRINGE IVP PRN (22:53)
--- NOTE | 2018-12-28 23:03 | Internal Med History&Physical ---
Date of Encounter: 12/28/18 Time of Encounter: 22:54 Internal Medicine - H&P: HPI Chief complaint: GI Bleed History of present illness: Mr. Hernández is a 68 year old male with a past medical history of hypertension, insulin-dependent diabetes, history of atrial flutter/A. fib on anticoagulation, heart failure with preserved ejection fraction and chronic kidney disease who presented to the ED with complaints of rectal bleeding. Patient states he was in his usual state of health today. He had breakfast earlier this morning consisting of a bagel and some grapes. He subsequently reports having 5-6 episodes of loose bowel movements shortly thereafter which subsequently left him feeling weak. Patient states that usually fruits cause him to have diarrhea and typically avoids it. However, around 2 PM later that afternoon, he reports having a large bloody bright red bowel movement and a second episode prior to seeking medical attention. He was seen at the urgent care at the [facility] earlier today and sent to the emergency department here for evaluation. Patient states he is currently being worked up for anemia of unknown etiology and received 2 units of packed red blood cells approximately 3 weeks ago at which time he was found to have a hemoglobin of 8.0. Has not had any further workup since then. Last colonoscopy was in 2013 at which time several polyps were removed. On arrival, found to have a hemoglobin of 8.7 with last known hemoglobin in our records of 11 approximately a year ago. On arrival patient is afebrile, not tachycardic, hypotensive or in acute distress. He does have mild diffuse abdominal pain and rectal examination shows positive stool occult but no gross hematochezia. Patient reports 1 episode of bright red blood per rectum here in the ED but flush the toilet before reports were verified by staff. He denies any chest pain, shortness of breath, nausea, vomiting or diarrhea. Remainder of laboratory workup showing elevated creatinine which appears to be chronic and hyperglycemia with a blood glucose of over 300. CT abdomen/pelvis shows no evidence of acute intracranial pathology. There is fatty infiltration of the liver and splenomegaly as well as prostamegaly. Patient received fluids in the ED and admitted for further evaluation. Past Med Surg Social Fam HX - Past Medical History Medical history: CHF, diabetes, hyperlipidemia, hypertension, kidney stones, renal disease Additional medical history: A Flutter, Seizures as a child, Pancreatitis Psychiatric history: no psych history - Past Surgical History Surgical History: cholecystectomy, ureteral stent, other (Cardiac ablation for his atrial flutter 07/2016) Additional surgical history: KIDNEY STONE REMOVAL, COLONOSCOPY in 2013 in in [place]/had 9 benign polyps - Social History Smoking Status: Former smoker Smokeless Tobacco Status: No Alcohol use: rarely Drug use: none - Family History Mother Adopted: No Family Member Ethnicity: Non- Living Status: Hx Family Neurologic Disorders: Yes Father Adopted: No Family Member Ethnicity: Non- Living Status: Hx Family Cardiac Disorders: Yes Sister Living Status: Hx Family Endocrine Disorder: Yes (DM(I)) Brother Living Status: Hx Family Cardiac Disorders: Yes (ME) Internal Medicine - H&P: Meds Atorvastatin [Lipitor] 20 mg PO DAILY 10/17/15 [History] Multivitamin [One Daily Essential] 1 tab PO DAILY 10/17/15 [History] [place]-3/Dha/Epa/Fish Oil [Fish Oil 1,000 mg Softgel] 1,000 mg PO DAILY 10/17/15 [History] Terazosin [Hytrin] 5 mg PO DAILY 10/17/15 [History] Albuterol Sulfate [Proventil Inhaler] 2 puff IH Q4H PRN 07/21/16 [History] Isosorbide MONOnitrate (24 HR) [Imdur] 30 mg PO DAILY 07/21/16 [History] Metoprolol [Lopressor] 150 mg PO BID 07/21/16 [History] Bumetanide [Bumex] 2 mg PO DAILY 10/12/17 [History] Diltiazem HCl [Cardizem] 30 mg PO BID 10/12/17 [History] Acetaminophen [Tylenol] 650 mg PO Q6HR PRN tablet 10/14/17 [Rx] Bisacodyl [Dulcolax] 5 mg PO DAILY PRN 12/29/18 [History] Budesonide/Formoterol 160/4.5 [Symbicort 160/4.5] 2 puff PO BID 12/29/18 [History] Bumetanide [Bumex] 0.5 mg PO 1200 12/29/18 [History] Docusate [Colace] 100 mg PO DAILY PRN 12/29/18 [History] Gabapentin [Neurontin] 600 mg PO QID 12/29/18 [History] Insulin ASPART [Novolog Flexpen] 55 unit SQ TIDWM 12/29/18 [History] Insulin Glargine [Lantus] 120 unit SQ BID 12/29/18 [History] Ipratropium/Albuterol Neb [Duoneb] 3 ml IH QID PRN 12/29/18 [History] Lisinopril [Zestril] 20 mg PO DAILY 12/29/18 [History] [place]-3/Dha/Epa/Fish Oil [Fish Oil 1,000 mg Softgel] 1,000 mg PO DAILY 12/29/18 [History] Preservision Areds 2 Softgel 1 cap PO BID 12/29/18 [History] Rivaroxaban [Xarelto] 20 mg PO DAILY 12/29/18 [History] Tamsulosin HCl [Flomax] 0.4 mg PO DAILY 12/29/18 [History] Allergy/AdvReac Type Severity Reaction Status Date / Time sulfamethoxazole Allergy Rash Verified 08/21/17 13:27 [From Bactrim] trimethoprim [From Bactrim] Allergy Rash Verified 08/21/17 13:27 Metolazone AdvReac kidney Verified 08/21/17 13:27 failure per patient All Systems PM: A 10-system review of systems was performed and is negative for pertinent findings except as documented above in the HPI. - Constitutional Constitutional: no chills, no fever(s), no night sweats - EENT Eyes: no change in vision, no discharge, no pain, no photophobia Ears: no ear discharge, no ear pain, no tinnitus Nose, mouth and throat: no dysphagia, no nasal discharge, no neck pain, no sore throat - Cardiovascular Cardiovascular ROS IM: no chest pain, no diaphoresis, no dyspnea, no lightheadedness, no palpitations, no syncope - Respiratory Respiratory: no cough, no dyspnea, no wheezing, no excessive phlegm production - Gastrointestinal Gastrointestinal: no abdominal pain, no diarrhea, no hematemesis, no hematochezia, no melena, no nausea, no vomiting - Musculoskeletal Musculoskeletal ROS IM: no numbness, no tingling - Integumentary Integumentary IM: no rash, no unusual bruising - Neurological Neurological ROS: no confusion, no convulsions, no focal weakness, no numbness, no tingling, no tremor(s) - Hematologic/Lymphatic Hematologic/Lymphatic: no easy bruising - Constitutional Vitals: Temp Pulse Resp BP Pulse Ox 97.8 F 89 18 135/67 97 12/28/18 18:10 12/28/18 18:10 12/28/18 22:26 12/28/18 22:26 12/28/18 18:10 Exam: General: Alert and oriented 3 Skin:Normal color, no rash, no lesions. HEENT:EOM, pupils equal, round and reactive. Cardiovascular:Normal S1 & S2, no rubs, murmurs or gallops. No JVD. Pulse regu lar. Lungs:Normal breath sounds, no wheezes or crackles. Abdomen:Soft, mild epigastric tenderness Extremities:No deformity, no edema or tenderness, no joint swelling or clubbing. Neurological:Normal cognition and motor skills. Pulses:Carotid and radial pulses normal +2. Rest of the physical exam is non contributory Internal Med - H&P Results - Labs CBC & Chem 7: 12/29/18 03:34 12/28/18 18:51 Labs: Short CBC 12/28/18 Range/Units 18:51 WBC 7.7 (4.3-11.1) K/mcL Hgb 8.7 L (12.9-16.9) g/dL Hct 29.7 L (37.5-50.1) % Plt Count 154 (140-400) K/mcL Neutrophils # 5.2 (1.6-8.9) K/mcL BMP 12/28/18 18:51 Sodium 139 Potassium 4.6 Chloride 100 Carbon Dioxide 30 H BUN 22 Creatinine 1.68 H Glucose 389 H Calcium 8.8 - Impressions ITS Impressions Abdomen/Pelvis CT 12/28/18 20:26 IMPRESSION: Fatty infiltration of the liver. Splenomegaly. Prostate gland enlargement. Increased density in the lower anterior subcutaneous mesenteric fat, nonspecific. Correlation for severe cellulitis is recommended. D/ / Jasmin Louis Cha, MD / Jasmin Louis Cha, MD Interpreting Provider: Jasmin Louis Cha, MD - Assessment and Plan (1) Lower gastrointestinal hemorrhage Current Visit: Yes Status: Acute Assessment and plan: Patient presenting with one episode of bright red blood per rectum. Currently on anticoagulation with Xarelto for A. fib. Positive fecal occult testing in ED. Previous colonoscopy in 2014 at outside facility. No reports of abdominal pain, nausea, vomiting. Does report loose stools earlier today. No reports of recent antibiotic use. Fever or white count on arrival. Abdominal exam benign. No significant findings on CT scan of the abdomen and pelvis. Patient has remained hemodynamically stable since arrival. -Trend hemoglobin -We will hold Xarelto for now -We will keep patient nothing by mouth -Transfuse as needed -Consult to GI for possible colonoscopy (2) Acute blood loss anemia Current Visit: Yes Status: Acute Assessment and plan: Patient presenting with anemia in the setting of reported bright red blood per rectum. Hemoglobin 8.7 with last hemoglobin of 10.7 approximately one year ago. -Patient was typed and screened -Check orthostatics -We will trend hemoglobin for now and transfuse as needed if hemoglobin drops below 8 or patient becomes increasingly symptomatic. -We will check iron profile and ferritin level (3) CKD (chronic kidney disease) Current Visit: Yes Status: Chronic Assessment and plan: History of stage III chronic kidney disease. Creatinine 1.68 which appears to be at baseline. -We will monitor. Qualifiers: Chronic kidney disease stage: stage 3 (moderate) Qualified Code(s): N18.3 - Chronic kidney disease, stage 3 (moderate) (4) Hyperglycemia Current Visit: Yes Status: Acute Assessment and plan: Blood glucose 389 on arrival. Patient appears to have previous top mentation of poorly controlled diabetes. He states he did not take his scheduled insulin today. Received one-time dose of 10 units of regular insulin in the ED. -We will keep patient nothing by mouth for now with Accu-Cheks every 6 hours -We will place patient on sliding scale plus basal insulin (5) Atrial fibrillation Current Visit: No Status: Acute Qualifiers: Atrial fibrillation type: paroxysmal Qualified Code(s): I48.0 - Paroxysmal atrial fibrillation (6) Skin tear Current Visit: Yes Status: Acute Assessment and plan: Patient reporting skin tear of the anterior aspect of the left big toe. No evidence of infection or drainage. -There is instructed to clean area and apply dressing. -Patient has foot care provided to him at the [facility]. Advised patient to follow-up with podiatry at [facility] for ongoing care (7) Atrial fibrillation and flutter Current Visit: No Status: Acute Assessment and plan: History of atrial fibrillation/flutter rate controlled on anticoagulation. Patient appears to be in sinus rhythm currently. -We will hold Xarelto due to GI bleed -Continue Lopressor IV push as needed for rate control (8) DVT prophylaxis Current Visit: No Status: Acute Assessment and plan: Pneumatic compression devices - Time Spent With Patient Total time spent is greater than 50% in coordination of care (as documented) at patient's floor/unit and/or counseling patient:
[2018-12-28] MEDS: Insulin DETEMIR 100 UNIT/ML X5UNITS SQ SCH (23:53)
[2018-12-29] MEDS: Insulin LISPRO 300 UNITS/3 ML VIAL SQ SCH ×5 (00:10→23:53)
[2018-12-29 00:25] LABS: Hematocrit 29.4 % (37.5-50.1); Hemoglobin 8.6 g/dL (12.9-16.9)
[2018-12-29 04:31] LABS: Eosinophils % 2.4 %; Red Cell Distribution Width 21.6 % (11.5-14.5)
[2018-12-29 04:33] LABS: Basophils % 0.5 %; Eosinophils # 0.2 K/mcL (0.0-0.6); Hematocrit 30.6 % (37.5-50.1); Hemoglobin 8.8 g/dL (12.9-16.9); Immature Granulocytes % 0.3 % (0-4); Lymphocytes % 30.2 %; Mean Corpuscular HGB Conc 28.8 g/dL (31.6-35.5); Mean Corpuscular Hemoglobin 22.7 pg (28.0-33.3); Mean Corpuscular Volume 79.1 fL (83.0-100.0); Mean Platelet Volume 8.6 fL (9.4-12.4); Monocytes # 0.4 K/mcL (0.0-1.3); Monocytes % 5.3 %; Platelet Count 165 K/mcL (140-400); Red Blood Count 3.87 M/mcL (4.19-5.50); Segmented Neutrophils % 61.3 %; White Blood Count 6.6 K/mcL (4.3-11.1)
[2018-12-29 04:35] LABS: Neutrophils # 4.1 K/mcL (1.6-8.9)
[2018-12-29 04:40] LABS: INR 1.3; Prothrombin Time 14.3 Seconds (9.4-12.1)
[2018-12-29 04:42] LABS: Activated Partial Thrombo Time 37.8 Seconds (26.0-36.0)
[2018-12-29 04:54] LABS: % Iron Saturation 8 % (20-55); Iron 26 mcg/dL (65-175); Transferrin 243 mg/dL (203-362)
[2018-12-29 05:10] LABS: Ferritin 59 ng/mL (20-250)
[2018-12-29 05:32] LABS: Basophilic Stippling 1+ (Not Present)
[2018-12-29 05:35] LABS: Platelet Estimate Normal (Normal); Poikilocytosis 1+ (Not Present)
[2018-12-29] MEDS ORDERED: *HR* Metoprolol 5 MG/5 ML VIAL IVP PRN (07:21)
--- NOTE | 2018-12-29 11:32 | Internal Med Progress Note ---
Hospitalist Progress Note - Encounter Date of Encounter: 12/29/18 Time of Encounter: 11:30 - Subjective Interval History: Patient was seen and examined at bedside. Patient reports that he had large bloody bowel movement yesterday. Patient also reported that he had multiple bowel movement which was bloody in the ER as well. However, since he was transf erred to the floor he has not had any BM yet. Denies any chest pain, palpitation, difficulty breathing. He denies any fever, chills, nausea, vomiting and abdominal pain. - Exam Vitals: Temp Pulse Resp BP Pulse Ox 98.1 F 88 16 158/84 95 12/29/18 07:00 12/29/18 07:00 12/29/18 07:00 12/29/18 07:00 12/29/18 07:00 Exam: General: A & O 3, In no acute distress CVS S1 and S2 regular, no murmur RS: Clear to air entry bilaterally, no wheeze, no crackles Abdomen: Soft and nontender. Bowel sounds normal 4 Extremities: No cyanosis, clubbing, and edema Neurology: Cranial 2 through 12 normal. Motor strength 5/5 bilaterally. Sensation intact Psychiatry: A and O 3. - Assessment and Plan (1) Lower gastrointestinal hemorrhage Current Visit: Yes Status: Acute Assessment and Plan: Patient was admitted for 2 episode of bright red blood per rectum. Hemoglobin has been on both 8. We will continue to monitor. Will transfuse PRBC as needed. GI consult was obtained this morning. Patient will go for EGD and colonoscopy tomorrow. Continue bowel prep today. (2) Acute blood loss anemia Current Visit: Yes Status: Acute Assessment and Plan: mangement as above (3) CKD (chronic kidney disease) Current Visit: Yes Status: Chronic Assessment and Plan: History of stage III chronic kidney disease. Creatinine 1.68 which appears to be at baseline. -We will monitor. (4) Hyperglycemia Current Visit: Yes Status: Acute Assessment and Plan: Blood glucose 389 on arrival. Patient appears to have previous top mentation of poorly controlled diabetes. He states he did not take his scheduled insulin today. Received one-time dose of 10 units of regular insulin in the ED. -We will keep patient nothing by mouth for now with Accu-Cheks every 6 hours -We will place patient on sliding scale plus basal insulin (5) Atrial fibrillation Current Visit: No Status: Acute Assessment and Plan: Continue to hold Xarelto for GI bleed. Metoprolol IVP as needed for tachyarrhythmia (6) Skin tear Current Visit: Yes Status: Acute Assessment and Plan: Patient reporting skin tear of the anterior aspect of the left big toe. No evidence of infection or drainage. -There is instructed to clean area and apply dressing. -Patient has foot care provided to him at the [facility]. Advised patient to follow-up with podiatry at [facility] for ongoing care (7) DVT prophylaxis Current Visit: No Status: Acute DVT Prophylaxis: EPCD - Time Spent with Patient Total time spent is greater than 50% in coordination of care (as documented) at patient's floor/unit and/or counseling patient: 25 - 35 minutes Plan of Care Discussed with: patient Internal Medicine: Result - Labs CBC & Chem 7: 12/29/18 03:34 12/28/18 18:51 Labs: Short CBC 12/28/18 12/28/18 12/29/18 Range/Units 18:51 23:51 03:34 WBC 7.7 6.6 (4.3-11.1) K/mcL Hgb 8.7 L 8.6 L 8.8 L (12.9-16.9) g/dL Hct 29.7 L 29.4 L 30.6 L (37.5-50.1) % Plt Count 154 165 (140-400) K/mcL Neutrophils # 5.2 4.1 (1.6-8.9) K/mcL BMP 12/28/18 18:51 Sodium 139 Potassium 4.6 Chloride 100 Carbon Dioxide 30 H BUN 22 Creatinine 1.68 H Glucose 389 H Calcium 8.8 - ABG Interpretation ABG results: PT/INR, D-dimer PT 14.3 Seconds (9.4-12.1) H 12/29/18 03:34 - Impressions Impressions Abdomen/Pelvis CT 12/28/18 20:26 IMPRESSION: Fatty infiltration of the liver. Splenomegaly. Prostate gland enlargement. Increased density in the lower anterior subcutaneous mesenteric fat, nonspecific. Correlation for severe cellulitis is recommended. D/ / Jasmin Louis Cha, MD / Jasmin Louis Cha, MD Interpreting Provider: Jasmin Louis Cha, MD Consult Discharge Plan - Plan [facility]: [facility] [[facility] Care Provider[facility] - (3) CKD (chronic kidney disease) Qualifiers: Chronic kidney disease stage: stage 3 (moderate) Qualified Code(s): N18.3 - Chronic kidney disease, stage 3 (moderate) (5) Atrial fibrillation Qualifiers: Atrial fibrillation type: paroxysmal Qualified Code(s): I48.0 - Paroxysmal atrial fibrillation
--- NOTE | 2018-12-29 11:41 | Gastroenterology Consult Note ---
<SelenaLoc York - Last Filed: 12/29/18 11:39> Date of Encounter: 12/29/18 Time of Encounter: 10:10 - Assessment and plan (1) Rectal bleeding Current Visit: Yes Status: Acute Assessment and plan: Patient with 3 episodes of BRBPR. Plan for EGD and colonoscopy tomorrow. Clear liquid diet today, no red or purple. NPO at midnight. If unable tolerate NuLytely please use MiraLAX prep. If not clear by 6 AM, give 2 tap water enemas. (2) Anemia Current Visit: Yes Status: Acute Assessment and plan: Hgb 8.7 on admission and Hgb 8.8 this AM with MCV 79.1. Continue to monitor CBC and transfuse PRBC as needed. Plan for EGD and colonoscopy tomorrow. Qualifiers: Anemia type: unspecified type Qualified Code(s): D64.9 - Anemia, unspecified - Time Spent With Patient Total time spent is greater than 50% in coordination of care (as documented) at patient's floor/unit and/or counseling patient: GI History of Present Illness - Data of Consult Patient: new to practice Consult date: 12/29/18 Requesting Physician: Willis Davis MD - Consult Narrative Reason for consult: GIB History of present illness: Mr. Hernández is a 68 year old male with PMHx of CHF, DM, HLD, HTN, atrial flutter/A. fib on anticoagulation, CKD who presented to the ED with complaints of rectal bleeding. He reports having 5-6 episodes of loose bowel movements. He reports he later had two large episodes of BRBPR. [facility] for further evaluation. Patient reports having additional episode of BRBPR in ED, but flushed toilet before anyone was able to verify. Patient reports being worked up for anemia, and received two units PRBC [address] A/P with fatty liver, splenomegaly, and enlarged prostate. Hgb 8.7 on admission and Hgb 8.8 this AM with MCV 79.1. Procedures: Colonoscopy 2013 with benign polyps removed per patient report. NSAIDs: None Anticoagulation: Xarelto Past Med Surg Social Fam HX - Past Medical History Medical history: CHF, diabetes, hyperlipidemia, hypertension, kidney stones, renal disease Additional medical history: A Flutter, Seizures as a child, Pancreatitis Psychiatric history: no psych history - Past Surgical History Surgical History: cholecystectomy, ureteral stent, other (Cardiac ablation for his atrial flutter 07/2016) Additional surgical history: KIDNEY STONE REMOVAL, COLONOSCOPY in 2013 in in [place]/had 9 benign polyps - Social History Smoking Status: Former smoker Smokeless Tobacco Status: No Alcohol use: rarely Drug use: none - Family History Mother Adopted: No Family Member Ethnicity: Non- Living Status: Hx Family Neurologic Disorders: Yes Father Adopted: No Family Member Ethnicity: Non- Living Status: Hx Family Cardiac Disorders: Yes Sister Living Status: Hx Family Endocrine Disorder: Yes (DM(I)) Brother Living Status: Hx Family Cardiac Disorders: Yes ([place]) - Gastrointestinal Gastrointestinal: Present: as per HPI - Constitutional Constitutional: as per HPI - EENT Eyes: as per HPI Ears: Present: as per HPI Nose, mouth and throat: Present: as per HPI - Cardiovascular Cardiovascular ROS: Present: as per HPI - Respiratory Respiratory IM: Present: as per HPI - Genitourinary Genitourinary: Absent: change in color, Urinary frequency - Neurological ROS Neurological GI: Present: as per HPI - Hematologic/Lymphatic Hematologic/Lymphatic pediatric: Present: as per HPI - Musculoskeletal Musculoskeletal ROS GI: Present: as per HPI - Integumentary Integumentary GI: Present: as per HPI - Psychiatric ROS Psychiatric GI: Present: as per HPI - Endocrine Endocrine IM: Present: as per HPI - Constitutional Vitals: Temp Pulse Resp BP Pulse Ox 98.0 F 82 18 152/83 96 12/29/18 11:36 12/29/18 11:36 12/29/18 11:36 12/29/18 11:36 12/29/18 11:36 General appearance: Present: cooperative, A&O X 3, no acute distress, answers questions appropriately - Head Head exam: Present: atraumatic, normocephalic - Eye Eye exam: Present: normal appearance, sclera anicteric - ENT ENT exam: Present: mucous membranes dry - Neck Neck exam general surgery: Present: normal inspection, trachea midline - Respiratory Respiratory exam: Present: CTAB. Absent: rales, rhonchi, wheezes - Cardiovascular Cardiovascular exam: Present: RRR, +S1, +S2 - GI/Abdominal GI/Abdominal exam: Present: soft, no peritoneal signs. Absent: distended, firm, guarding, tenderness - Rectal Rectal exam: Present: deferred - Extremities Exam Extremities exam: Present: warm - Neurological Exam Neurological exam: Present: no focal deficits - Psychiatric Psychiatric exam: Present: normal affect, normal mood - Skin Skin exam: Present: dry, intact, normal color, warm Results - Labs CBC & Chem 7: 12/29/18 03:34 12/28/18 18:51 Labs: Last Result 12/29/18 03:34 Iron 26 L % Saturation 8 L Transferrin 243 Ferritin 59 Entire Visit 12/28/18 12/29/18 12/29/18 23:51 03:34 03:34 Hgb 8.6 L 8.8 L Hct 29.4 L 30.6 L PT 14.3 H Ferritin 12/29/18 03:34 Hgb Hct PT Ferritin 59 - ABG ABG results: PT/INR, D-dimer PT 14.3 Seconds (9.4-12.1) H 12/29/18 03:34 - Impressions Impressions Abdomen/Pelvis CT 12/28/18 20:26 IMPRESSION: Fatty infiltration of the liver. Splenomegaly. Prostate gland enlargement. Increased density in the lower anterior subcutaneous mesenteric fat, nonspecific. Correlation for severe cellulitis is recommended. D/ / Jasmin Louis Cha, MD / Jasmin Louis Cha, MD Interpreting Provider: Jasmin Louis Cha, MD Consult Discharge Plan - Plan [facility]errals: [facility] Care Provider[facility] - <Rex Davis - Last Filed: 12/29/18 18:09> Date of Encounter: 12/29/18 Time of Encounter: 17:00 - Time Spent With Patient Total time spent is greater than 50% in coordination of care (as documented) at patient's floor/unit and/or counseling patient: GI History of Present Illness - Data of Consult Requesting Physician: Willis Davis MD - Consult Narrative History of present illness: Mr. Hernández is a 68 year old male - Constitutional Vitals: Temp Pulse Resp BP Pulse Ox 98.2 F 85 18 154/72 91 12/29/18 16:56 12/29/18 16:56 12/29/18 16:56 12/29/18 16:56 12/29/18 16:56 Results - Labs CBC & Chem 7: 12/29/18 03:34 12/28/18 18:51 - ABG ABG results: PT/INR, D-dimer PT 14.3 Seconds (9.4-12.1) H 12/29/18 03:34 - Impressions Impressions Abdomen/Pelvis CT 12/28/18 20:26 IMPRESSION: Fatty infiltration of the liver. Splenomegaly. Prostate gland enlargement. Increased density in the lower anterior subcutaneous mesenteric fat, nonspecific. Correlation for severe cellulitis is recommended. D/ / Jasmin Louis Cha, MD / Jasmin Louis Cha, MD Interpreting Provider: Jasmin Louis Cha, MD - Attending Attestation I have personally performed a face to face evaluation on this patient. I have reviewed and agree with the care plan. History and Exam by me shows: Pt seen no abdominal pain on examination abdomen is soft. A; rectal bleeding with microcytic anemia. Rec: EGD colonoscopy in the morning
--- NOTE | 2018-12-29 13:00 | Electrocardiograph Report ---
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
[2018-12-29] MEDS: Lisinopril 20 MG TABLET PO SCH (15:04)
[2018-12-29] MEDS: Gabapentin 300 MG CAPSULE PO SCH ×3 (15:04→21:25)
[2018-12-29] MEDS: Bumetanide 1 MG/4 ML VIAL IVP SCH (15:04)
[2018-12-29] MEDS ORDERED: SODIUM CHLORIDE/NAHCO3/KCL/PEG 4,000 ML SOLN.RECON PO ONE (17:00)
--- NOTE | 2018-12-29 17:24 | Anesthesia Evaluation PreOp ---
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: Seizures (as child) Other Medical History: Renal (stones, ckd), Diabetes Type II, Other (anemia, GI bleed, BMI 45) Anesthesia History: No Prior Anesthetic Complications, Past Anesthesia (cholecystectomy, ureteral stent, other (Cardiac ablation for his atrial flutter 07/2016), kidney stone colonoscopy) Alcohol Use: rarely Drug use: none Medications and Allergies Atorvastatin [Lipitor] 20 mg PO DAILY 10/17/15 [History] Multivitamin [One Daily Essential] 1 tab PO DAILY 10/17/15 [History] [place]-3/Dha/Epa/Fish Oil [Fish Oil 1,000 mg Softgel] 1,000 mg PO DAILY 10/17/15 [History] Terazosin [Hytrin] 5 mg PO DAILY 10/17/15 [History] Albuterol Sulfate [Proventil Inhaler] 2 puff IH Q4H PRN 07/21/16 [History] Isosorbide MONOnitrate (24 HR) [Imdur] 30 mg PO DAILY 07/21/16 [History] Metoprolol [Lopressor] 150 mg PO BID 07/21/16 [History] Bumetanide [Bumex] 2 mg PO DAILY 10/12/17 [History] Diltiazem HCl [Cardizem] 30 mg PO BID 10/12/17 [History] Acetaminophen [Tylenol] 650 mg PO Q6HR PRN tablet 10/14/17 [Rx] Bisacodyl [Dulcolax] 5 mg PO DAILY PRN 12/29/18 [History] Budesonide/Formoterol 160/4.5 [Symbicort 160/4.5] 2 puff PO BID 12/29/18 [History] Bumetanide [Bumex] 0.5 mg PO 1200 12/29/18 [History] Docusate [Colace] 100 mg PO DAILY PRN 12/29/18 [History] Gabapentin [Neurontin] 600 mg PO QID 12/29/18 [History] Insulin ASPART [Novolog Flexpen] 55 unit SQ TIDWM 12/29/18 [History] Insulin Glargine [Lantus] 120 unit SQ BID 12/29/18 [History] Ipratropium/Albuterol Neb [Duoneb] 3 ml IH QID PRN 12/29/18 [History] Lisinopril [Zestril] 20 mg PO DAILY 12/29/18 [History] [place]-3/Dha/Epa/Fish Oil [Fish Oil 1,000 mg Softgel] 1,000 mg PO DAILY 12/29/18 [History] Preservision Areds 2 Softgel 1 cap PO BID 12/29/18 [History] Rivaroxaban [Xarelto] 20 mg PO DAILY 12/29/18 [History] Tamsulosin HCl [Flomax] 0.4 mg PO DAILY 12/29/18 [History] Allergy/AdvReac Type Severity Reaction Status Date / Time sulfamethoxazole Allergy Rash Verified 08/21/17 13:27 [From Bactrim] trimethoprim [From Bactrim] Allergy Rash Verified 08/21/17 13:27 Metolazone AdvReac kidney Verified 08/21/17 13:27 failure per patient - Meds/Allergy Pre-op Review Medications Reviewed: Yes Allergies Reviewed: Yes Beta Blockers on Current Med List: Yes (prn) Anesthesia Results - Labs 12/29/18 03:34 12/28/18 18:51 Laboratory Tests 12/29/18 03:34 PT 14.3 H INR 1.3 APTT 37.8 H - Imaging EKG: report reviewed ( Interpretive Statements Sinus rhythm Prolonged ID interval Borderline T wave abnormalities Electronically Signed On 12-29-2018 12:59:08 EDT by Mandeep Ruelas) Additional studies: ECHO 2017 Impressions: Technically adequate exam. Atrial fibrillation. LVEF 60%. Normal LV chamber size, wall thickness and function. Trace mitral regurgitation. Trace tricuspid regurgitation. Anesthesia Exam Vital Signs/O2 Sat, Most Current Temp Pulse Resp BP Pulse Ox 98.2 F 85 18 154/72 91 12/29/18 16:56 12/29/18 16:56 12/29/18 16:56 12/29/18 16:56 12/29/18 16:56 Weight: 157kg NPO (# of Hours): MN - HEENT Pupil (Motor): Pupils equal, EOMI Mallampati: III Oral Opening: Greater than 3 - MILK DELIVERER LOC: Oriented MILK DELIVERER Motor: Normal RUE, Normal LUE, Normal RLE, Normal LLE, Normal Face MILK DELIVERER Sensory: Normal: RUE, LUE, RLE, LLE, Face - Cardiac Rhythm: Regular - Pulmonary Breath Sounds: bilateral Clear Respiratory Effort: Symmetrical Anesthesia Assess/Plan ASA Score: 3 Level of consciousness: Cooperative Anesthetic Plan: MAC Monitoring Plan: Standard Monitors Recovery Plan: PACU
[2018-12-29] MEDS: Budesonide/Formoterol 160/4.5 1 PUFF INH IH SCH (20:33)
[2018-12-29] MEDS: Insulin DETEMIR 100 UNIT/ML X5UNITS SQ SCH (21:25)
[2018-12-30] MEDS ORDERED: Gabapentin 300 MG CAPSULE PO ONE (01:53)
[2018-12-30 04:32] LABS: Basophils % 0.3 %; Eosinophils # 0.2 K/mcL (0.0-0.6); Eosinophils % 2.2 %; Hematocrit 27.5 % (37.5-50.1); Hemoglobin 8.2 g/dL (12.9-16.9); Immature Granulocytes % 0.3 % (0-4); Lymphocytes # 1.6 K/mcL (0.6-4.6); Lymphocytes % 23.2 %; Mean Corpuscular HGB Conc 29.8 g/dL (31.6-35.5); Mean Corpuscular Hemoglobin 22.8 pg (28.0-33.3); Mean Corpuscular Volume 76.6 fL (83.0-100.0); Mean Platelet Volume 8.6 fL (9.4-12.4); Monocytes # 0.4 K/mcL (0.0-1.3); Monocytes % 5.8 %; Neutrophils # 4.5 K/mcL (1.6-8.9); Platelet Count 156 K/mcL (140-400); Red Blood Count 3.59 M/mcL (4.19-5.50); Red Cell Distribution Width 21.2 % (11.5-14.5); Segmented Neutrophils % 68.2 %; White Blood Count 6.7 K/mcL (4.3-11.1)
[2018-12-30 04:38] LABS: BUN/Creatinine Ratio 12 (6-26); Blood Urea Nitrogen 17 mg/dL (8-23); Calcium 8.6 mg/dL (8.6-10.3); Carbon Dioxide 28 mEq/L (23-29); Chloride 102 mEq/L (98-107); Glucose 243 mg/dL (70-105); Osmolality,Calculated 296 (280-300); Potassium 3.9 mEq/L (3.5-5.1); Sodium 138 mEq/L (136-145); eGFR For African Americans > 60 (> 60); eGFR For Non-African Americans 51 (> 60)
[2018-12-30] MEDS: Insulin LISPRO 300 UNITS/3 ML VIAL SQ SCH (05:56)
[2018-12-30] MEDS ORDERED: Propofol 500 MG/50 ML INFUS..BTL ONE (06:56)
[2018-12-30] MEDS: Budesonide/Formoterol 160/4.5 1 PUFF INH IH SCH (07:27)
--- NOTE | 2018-12-30 08:46 | Anesthesia Evaluation Post Op ---
Date of Encounter: 12/30/18 Time of Encounter: 08:47 - Vital Signs Vital Signs: 158/76, 90, 14, 98% on 2lpm O2. - Lungs Lungs: Clear Ascult./Percussion - Airway Airway: Non-obstructed - Cardiovascular Baseline Rhythm - Mental Status Mental Status: Alert & Oriented, Answers Appropriately - Pain Pain Scale: 0 - Nausea Vomiting Nausea Vomiting: Not Present - Hydration Hydration: NPO, Has not voided - Discharge PostOp Status: Transfer Patient to floor
[2018-12-30] MEDS ORDERED: Isosorbide MONOnitrate (24 HR) 30 MG TAB.ER.24H PO SCH (09:00)
[2018-12-30] MEDS: Lisinopril 20 MG TABLET PO SCH (09:23)
[2018-12-30] MEDS: Gabapentin 300 MG CAPSULE PO SCH ×2 (09:23→12:36)
[2018-12-30] MEDS: Bumetanide 1 MG/4 ML VIAL IVP SCH (10:22)
[2018-12-30] MEDS ORDERED: Insulin LISPRO 300 UNITS/3 ML VIAL SQ SCH ×2 (11:30→21:00)
[2018-12-30] MEDS ORDERED: Insulin DETEMIR 100 UNIT/ML X5UNITS SQ ONE (12:30)
--- NOTE | 2018-12-30 13:55 | Event Note ---
Date of Encounter: 12/30/18 Time of Encounter: 13:55 Spoke with javed Franklin to discharge patient today from our standpoint. Hold Xarelto 5 days.
[2018-12-30 14:11] VITALS: BP 136/76
--- NOTE | 2018-12-30 15:21 | Discharge Summary ---
- NOTES TO OUTPATIENT PROVIDER Notes to Outpatient Provider: Patient was admitted to the hospital for lower GI bleeding. Patient has a history of atrial fibrillation and is currently on Xarelto. Patient hemoglobin stayed above 8.0 during hospitalization and did not require any PRBC transfusion. GI consult was placed. Patient had EGD done which was unremarkable. Patient had colonoscopy done which showed multiple polyp which was removed. Pending pathology report. Follow-up colonoscopy in one year. Patient will be discharged in stable condition. Follow-up with primary care provider within one week to repeat H&H. Follow up with GI in 2 weeks. Advised ot hold Xarelto for 5 days. Orders not resulted at time of discharge: Pending orders 12/30/18 08:44 Surgical Pathology [PTH] Routine Date of Encounter: 12/30/18 Time of Encounter: 15:17 - Discharge Diagnosis (1) Lower gastrointestinal hemorrhage Priority: Primary Status: Acute (2) Acute blood loss anemia Priority: Secondary Status: Acute (3) CKD (chronic kidney disease) Priority: Secondary Status: Chronic Qualifiers: Chronic kidney disease stage: stage 3 (moderate) Qualified Code(s): N18.3 - Chronic kidney disease, stage 3 (moderate) (4) Hyperglycemia Priority: Secondary Status: Acute (5) Atrial fibrillation Priority: Secondary Status: Acute Qualifiers: Atrial fibrillation type: paroxysmal Qualified Code(s): I48.0 - Paroxysmal atrial fibrillation (6) Skin tear Priority: Secondary Status: Acute (7) Atrial fibrillation and flutter Priority: Secondary Status: Acute (8) DVT prophylaxis Priority: Secondary Status: Acute Hospital course: Mr. Hernández is a 68 year old male was admitted to the hospital for lower GI bleeding. Patient has a history of atrial fibrillation and is currently on Xarelto. Patient hemoglobin stayed above 8.0 during hospitalization and did not require any PRBC transfusion. GI consult was placed. Patient had EGD done which was unremarkable. Patient had colonoscopy done which showed multiple polyp which was removed. Pending pathology report. Follow-up colonoscopy in one year. Patient will be discharged in stable condition. Follow-up with primary care provider within one week to repeat H&H. Follow up with GI in 2 weeks. Advised ot hold Xarelto for 5 days. Discharge discussed with: patient, family, nurse, social work, edi consultant - Time Spent with Patient Total time spent providing and/or coordinating discharge services: 40 Time spent: Greater than 30 minutes - Discharge Medications Prescriptions: Continued Terazosin [Hytrin] 5 mg PO DAILY Multivitamin [One Daily Essential] 1 tab PO DAILY Atorvastatin [Lipitor] 20 mg PO DAILY [place]-3/Dha/Epa/Fish Oil [Fish Oil 1,000 mg Softgel] 1,000 mg PO DAILY Isosorbide MONOnitrate (24 HR) [Imdur] 30 mg PO DAILY Metoprolol [Lopressor] 150 mg PO BID Albuterol Sulfate [Proventil Inhaler] 2 puff IH Q4H PRN PRN Reason: Wheezing Ipratropium/Albuterol Neb [Duoneb] 3 ml IH QID PRN PRN Reason: COPD Bisacodyl [Dulcolax] 5 mg PO DAILY PRN PRN Reason: Constipation Budesonide/Formoterol 160/4.5 [Symbicort 160/4.5] 2 puff PO BID Bumetanide [Bumex] 0.5 mg PO 1200 Docusate [Colace] 100 mg PO DAILY PRN PRN Reason: Constipation [place]-3/Dha/Epa/Fish Oil [Fish Oil 1,000 mg Softgel] 1,000 mg PO DAILY Gabapentin [Neurontin] 600 mg PO BID Insulin Glargine [Lantus] 120 unit SQ BID Insulin ASPART [Novolog Flexpen] 55 unit SQ TIDWM Lisinopril [Zestril] 20 mg PO DAILY Preservision Areds 2 Softgel 1 cap PO BID Tamsulosin HCl [Flomax] 0.4 mg PO DAILY Gabapentin [Neurontin] 1,200 mg PO HS Bumetanide [Bumex] 2 mg PO DAILY Diltiazem HCl [Cardizem] 30 mg PO BID Acetaminophen [Tylenol] 650 mg PO Q6HR PRN tablet PRN Reason: Pain Discontinued Rivaroxaban [Xarelto] 20 mg PO DAILY Home Medications: Atorvastatin [Lipitor] 20 mg PO DAILY 10/17/15 [History] Multivitamin [One Daily Essential] 1 tab PO DAILY 10/17/15 [History] [place]-3/Dha/Epa/Fish Oil [Fish Oil 1,000 mg Softgel] 1,000 mg PO DAILY 10/17/15 [History] Terazosin [Hytrin] 5 mg PO DAILY 10/17/15 [History] Albuterol Sulfate [Proventil Inhaler] 2 puff IH Q4H PRN 07/21/16 [History] Isosorbide MONOnitrate (24 HR) [Imdur] 30 mg PO DAILY 07/21/16 [History] Metoprolol [Lopressor] 150 mg PO BID 07/21/16 [History] Bumetanide [Bumex] 2 mg PO DAILY 10/12/17 [History] Diltiazem HCl [Cardizem] 30 mg PO BID 10/12/17 [History] Acetaminophen [Tylenol] 650 mg PO Q6HR PRN tablet 10/14/17 [Rx] Bisacodyl [Dulcolax] 5 mg PO DAILY PRN 12/29/18 [History] Budesonide/Formoterol 160/4.5 [Symbicort 160/4.5] 2 puff PO BID 12/29/18 [History] Bumetanide [Bumex] 0.5 mg PO 1200 12/29/18 [History] Docusate [Colace] 100 mg PO DAILY PRN 12/29/18 [History] Gabapentin [Neurontin] 600 mg PO BID 12/29/18 [History] Insulin ASPART [Novolog Flexpen] 55 unit SQ TIDWM 12/29/18 [History] Insulin Glargine [Lantus] 120 unit SQ BID 12/29/18 [History] Ipratropium/Albuterol Neb [Duoneb] 3 ml IH QID PRN 12/29/18 [History] Lisinopril [Zestril] 20 mg PO DAILY 12/29/18 [History] [place]-3/Dha/Epa/Fish Oil [Fish Oil 1,000 mg Softgel] 1,000 mg PO DAILY 12/29/18 [History] Preservision Areds 2 Softgel 1 cap PO BID 12/29/18 [History] Tamsulosin HCl [Flomax] 0.4 mg PO DAILY 12/29/18 [History] Gabapentin [Neurontin] 1,200 mg PO HS 12/30/18 [History] Allergies/Adverse Reactions: Allergy/AdvReac Type Severity Reaction Status Date / Time sulfamethoxazole Allergy Rash Verified 08/21/17 13:27 [From Bactrim] trimethoprim [From Bactrim] Allergy Rash Verified 08/21/17 13:27 Metolazone AdvReac kidney Verified 08/21/17 13:27 failure per patient Date of admission: 12/28/18 21:55 [facility] physician: [facility] Consults: 12/28/18 22:59 Consult to Gastroenterology [CONS] Routine Consulting Provider: Gastroenterology [place] Reason for Consult: GI bleed likely lower Call Completed: No Discharging clinician: Willis Davis - Constitutional Vitals: Temp Pulse Resp BP Pulse Ox 98.2 F 93 15 136/76 89 12/30/18 14:06 12/30/18 14:06 12/30/18 14:06 12/30/18 14:06 12/30/18 14:06 General appearance: Present: cooperative, A&O X 3 Exam: General: A & O 3, In no acute distress CVS S1 and S2 regular, no murmur RS: Clear to air entry bilaterally, no wheeze, no crackles Abdomen: Soft and nontender. Bowel sounds normal 4 Extremities: No cyanosis, clubbing, and edema Neurology: Cranial 2 through 12 normal. Motor strength 5/5 bilaterally. Sensation intact Psychiatry: A and O 3. - Patient Status Disposition: Home, Self-Care Condition: Good Overall status at discharge: patient is progressing back to baseline - Discharge Instructions Follow Up With: [facility] [Primary Care Provider] - - Diet and Activity Activity: increase activity as tolerated Diet: diabetic diet, low salt diet
[2018-12-30] MEDS ORDERED: Insulin DETEMIR 100 UNIT/ML X5UNITS SQ SCH (21:00)
[2018-12-30] MEDS ORDERED: Gabapentin 400 MG CAPSULE PO SCH (21:00)
== END 2018-12-30 16:55 | disposition home or self-care (01) ==
LOC: 3ANU 18:04 → EMEROOARM 18:04 → SUATTDRO 21:55 → 3ANU 22:35
PROVIDERS: ADMIT Internal Medicine; ATTEND Family Medicine

== ENCOUNTER 2019-05-16 16:05 | Observation (INO) ==
[2019-05-16] MEDS ORDERED: 0.9 % Sodium Chloride 500 ML IVC ONE (16:18)
[2019-05-16 16:45] LABS: Basophils % 0.6 %; Eosinophils # 0.2 K/mcL (0.0-0.6); Eosinophils % 2.9 %; Hematocrit 33.1 % (37.5-50.1); Hemoglobin 9.9 g/dL (12.9-16.9); Immature Granulocytes % 0.5 % (0-4); Lymphocytes % 29.8 %; Mean Corpuscular HGB Conc 29.9 g/dL (31.6-35.5); Mean Corpuscular Hemoglobin 22.7 pg (28.0-33.3); Mean Corpuscular Volume 75.7 fL (83.0-100.0); Mean Platelet Volume 8.8 fL (9.4-12.4); Monocytes # 0.4 K/mcL (0.0-1.3); Neutrophils # 3.9 K/mcL (1.6-8.9); Platelet Count 135 K/mcL (140-400); Red Blood Count 4.37 M/mcL (4.19-5.50); Red Cell Distribution Width 18.6 % (11.5-14.5); Segmented Neutrophils % 60.2 %; White Blood Count 6.5 K/mcL (4.3-11.1)
[2019-05-16 17:02] LABS: Alanine Aminotransferase 27 Units/L (7-52); Albumin 3.5 g/dL (3.5-5.7); Alkaline Phosphatase 84 Units/L (34-104); Aspartate Amino Transferase 27 Units/L (13-39); BUN/Creatinine Ratio 14 (6-26); Bilirubin,Total 0.4 mg/dL (0.3-1.0); Blood Urea Nitrogen 23 mg/dL (8-23); Calcium 8.9 mg/dL (8.6-10.3); Carbon Dioxide 32 mEq/L (23-29); Chloride 99 mEq/L (98-107); Globulin 3.5 g/dL (2.4-3.5); Glucose 213 mg/dL (70-105); Osmolality,Calculated 300 (280-300); Potassium 3.8 mEq/L (3.5-5.1); Sodium 140 mEq/L (136-145); Troponin I < 0.03 ng/mL (< 0.04); eGFR For African Americans 52 (> 60); eGFR For Non-African Americans 43 (> 60)
[2019-05-16] MEDS ORDERED: Ondansetron 4 MG/2 ML VIAL IVP PRN (17:34)
[2019-05-16] MEDS ORDERED: MOM Conc 10 ML UD.LIQ PO PRN (17:34)
[2019-05-16] MEDS ORDERED: Naloxone 0.4 MG/ML INJ IVP PRN (17:34)
[2019-05-16] MEDS ORDERED: Acetaminophen 325 MG TABLET PO PRN (17:34)
[2019-05-16] MEDS ORDERED: Mag Hydrox/Al Hydrox/Simeth 30 ML UDC PO PRN (17:34)
[2019-05-16] MEDS ORDERED: *HR* Promethazine 25 MG/ML VIAL IVP PRN (17:34)
[2019-05-16] MEDS ORDERED: Dextrose Gel 15 GM/37.5 ML TUBE PO PRN ×2 (17:35)
[2019-05-16] MEDS ORDERED: *HR* Dextrose 50 % in Water (Syg) 50 ML SYRINGE IVP PRN (17:35)
[2019-05-16] MEDS ORDERED: D5% in Water 1,000 ML IVC PRN (17:35)
[2019-05-16] MEDS ORDERED: Insulin LISPRO 300 UNITS/3 ML VIAL SQ SCH (21:00)
[2019-05-16] MEDS: Gabapentin 400 MG CAPSULE PO SCH (23:10)
[2019-05-16] MEDS: Aspirin Enteric Coated 81 MG Tablet PO SCH (23:10)
[2019-05-16] MEDS: *HR* Heparin 5,000 UNIT/ML VIAL SQ SCH (23:10)
[2019-05-17] MEDS ORDERED: Insulin Human Regular 10 UNIT in 0.9 % Sodium Chloride 10 ML IV ONE (03:15)
[2019-05-17 03:58] LABS: Basophils % 0.4 %; Eosinophils # 0.2 K/mcL (0.0-0.6); Eosinophils % 2.4 %; Hematocrit 33.4 % (37.5-50.1); Immature Granulocytes % 0.3 % (0-4); Lymphocytes # 1.7 K/mcL (0.6-4.6); Lymphocytes % 22.3 %; Mean Corpuscular HGB Conc 29.9 g/dL (31.6-35.5); Mean Corpuscular Hemoglobin 22.8 pg (28.0-33.3); Mean Corpuscular Volume 76.3 fL (83.0-100.0); Mean Platelet Volume 8.8 fL (9.4-12.4); Monocytes # 0.4 K/mcL (0.0-1.3); Monocytes % 5.3 %; Neutrophils # 5.1 K/mcL (1.6-8.9); Platelet Count 143 K/mcL (140-400); Red Blood Count 4.38 M/mcL (4.19-5.50); Red Cell Distribution Width 18.9 % (11.5-14.5); Segmented Neutrophils % 69.3 %; White Blood Count 7.4 K/mcL (4.3-11.1)
[2019-05-17 04:15] LABS: Chol/HDL Ratio 5.3 (0-4.9)
[2019-05-17 04:16] LABS: Calcium 8.8 mg/dL (8.6-10.3); Potassium 4.1 mEq/L (3.5-5.1)
[2019-05-17] MEDS: *HR* Heparin 5,000 UNIT/ML VIAL SQ SCH ×2 (05:52→17:21)
[2019-05-17 07:46] LABS: Estimated Average Glucose 283 mg/dl
[2019-05-17] MEDS: Aspirin Enteric Coated 81 MG Tablet PO SCH (08:01)
[2019-05-17] MEDS: Insulin LISPRO 300 UNITS/3 ML VIAL SQ SCH ×3 (08:01→17:19)
[2019-05-17] MEDS: Gabapentin 300 MG CAPSULE PO SCH ×2 (08:01→14:09)
[2019-05-17] MEDS ORDERED: Perflutren Lipid Microsphere 1.3 ML in 0.9 % Sodium Chloride 8.7 ML IVP ONE (12:03)
[2019-05-17 12:08] LABS: Bilirubin,Urine Negative (Negative); Blood,Urine Negative (Negative); Clarity,Urine Clear (Clear); Color,Urine Yellow (Yellow); Glucose,Urine (UA) >=1000 mg/dL (Normal); Ketones,Urine Negative (Negative); Leukocyte Esterase,Urine Negative (Negative); Nitrite,Urine Negative (Negative); Protein,Urine 100 mg/dL (Neg-Trace); Specific Gravity,Urine 1.028 (1.010-1.025); Urobilinogen,Urine Normal (Normal)
[2019-05-17 12:11] LABS: Bacteria,Urine None Seen per hpf (None-Few); Hyaline Casts,Urine None Seen per lpf (None-Few); RBC,Urine 0-3 per hpf (0-3); Squamous Epithelial Cell,Urine Moderate per lpf (None-Few); WBC,Urine 0-3 per hpf (0-3)
[2019-05-17] MEDS ORDERED: Ipratropium/Albuterol Neb 3 ML IH PRN (12:22)
[2019-05-17] MEDS ORDERED: Bumetanide 1 MG TABLET PO SCH (12:23)
[2019-05-17] MEDS: Lisinopril 20 MG TABLET PO SCH (14:09)
[2019-05-17] MEDS: Isosorbide MONOnitrate (24 HR) 30 MG TAB.ER.24H PO SCH (14:09)
[2019-05-17] MEDS ORDERED: Insulin LISPRO 300 UNITS/3 ML VIAL SQ SCH ×2 (16:30→21:00)
[2019-05-17] MEDS ORDERED: NON-FORMULARY MEDICATION 1 EACH EACH (Rivaroxaban [Xarelto] 20 MG) PO SCH (17:30)
[2019-05-17] MEDS ORDERED: *HR* Rivaroxaban 10 MG TABLET PO SCH (18:00)
[2019-05-17] MEDS: Insulin DETEMIR 100 UNIT/ML X5UNITS SQ SCH ×2 (20:29→20:30)
[2019-05-17] MEDS: Metoprolol 100 MG TABLET PO SCH (20:30)
[2019-05-17] MEDS: Gabapentin 400 MG CAPSULE PO SCH (20:30)
[2019-05-17] MEDS: Budesonide/Formoterol 160/4.5 1 PUFF INH IH SCH (20:49)
[2019-05-17] MEDS ORDERED: Insulin LISPRO 300 UNITS/3 ML VIAL SQ ONE (23:03)
[2019-05-18] MEDS ORDERED: Insulin DETEMIR 100 UNIT/ML X5UNITS SQ ONE (01:21)
[2019-05-18 05:01] LABS: Basophils % 0.7 %; Eosinophils # 0.3 K/mcL (0.0-0.6); Eosinophils % 4.7 %; Hemoglobin 9.7 g/dL (12.9-16.9); Immature Granulocytes % 0.3 % (0-4); Lymphocytes # 1.9 K/mcL (0.6-4.6); Mean Corpuscular HGB Conc 29.4 g/dL (31.6-35.5); Mean Corpuscular Hemoglobin 22.6 pg (28.0-33.3); Mean Corpuscular Volume 76.9 fL (83.0-100.0); Mean Platelet Volume 8.9 fL (9.4-12.4); Monocytes # 0.4 K/mcL (0.0-1.3); Monocytes % 7.2 %; Neutrophils # 3.4 K/mcL (1.6-8.9); Platelet Count 149 K/mcL (140-400); Red Blood Count 4.29 M/mcL (4.19-5.50); Red Cell Distribution Width 18.7 % (11.5-14.5); Segmented Neutrophils % 56.1 %
[2019-05-18 05:21] LABS: Calcium 8.8 mg/dL (8.6-10.3); Potassium 4.1 mEq/L (3.5-5.1)
[2019-05-18] MEDS ORDERED: Bumetanide 1 MG TABLET PO SCH (09:00)
[2019-05-18] MEDS: Insulin DETEMIR 100 UNIT/ML X5UNITS SQ SCH ×3 (09:23→09:33)
[2019-05-18] MEDS: Metoprolol 100 MG TABLET PO SCH (09:23)
[2019-05-18] MEDS: Isosorbide MONOnitrate (24 HR) 30 MG TAB.ER.24H PO SCH (09:24)
[2019-05-18] MEDS: Aspirin Enteric Coated 81 MG Tablet PO SCH (09:24)
[2019-05-18] MEDS: Lisinopril 20 MG TABLET PO SCH (09:24)
[2019-05-18] MEDS: Gabapentin 300 MG CAPSULE PO SCH (09:25)
[2019-05-18] MEDS: Insulin LISPRO 300 UNITS/3 ML VIAL SQ SCH (09:25)
[2019-05-18] MEDS: Budesonide/Formoterol 160/4.5 1 PUFF INH IH SCH (10:27)
[2019-05-18 11:50] VITALS: BP 115/65
[2019-05-19] MEDS ORDERED: NON-FORMULARY MEDICATION 1 EACH EACH (Rivaroxaban [Xarelto] 20 MG) PO SCH (09:00)
== END 2019-05-18 15:17 | disposition home health service (06) ==
LOC: 3BNU 16:05 → EMEROOARM 16:05 → SUATTDRO 18:07 → 3BNU 18:52
PROVIDERS: ADMIT Internal Medicine; ATTEND Student in an Organized Health Care Education/Training Program

== ENCOUNTER 2020-02-05 15:37 | Inpatient (IN) ==
[2020-02-05] MEDS ORDERED: Acetaminophen 325 MG TABLET PO PRN (17:25)
[2020-02-05] MEDS ORDERED: Naloxone 0.4 MG/ML INJ IVP PRN (17:25)
[2020-02-05] MEDS ORDERED: Perflutren Lipid Microsphere 1.3 ML in 0.9 % Sodium Chloride 8.7 ML IVP PRN (17:57)
[2020-02-05] MEDS ORDERED: *HR* Dextrose 50 % in Water (Vial) 50 ML VIAL IVP PRN ×3 (18:04→21:08)
[2020-02-05] MEDS ORDERED: D5% in Water 1,000 ML IVC PRN ×3 (18:04→21:08)
[2020-02-05] MEDS ORDERED: Dextrose Gel 15 GM/37.5 ML TUBE PO PRN ×6 (18:04→21:08)
[2020-02-05 18:31] LABS: Chol/HDL Ratio 3.1 (0-4.9)
[2020-02-05] MEDS: Bumetanide 1 MG/4 ML VIAL IVP SCH (19:03)
[2020-02-05 19:08] LABS: Estimated Average Glucose 243 mg/dl
[2020-02-05] MEDS ORDERED: Insulin DETEMIR 100 UNIT/ML X5UNITS SQ SCH (21:00)
[2020-02-05] MEDS: Insulin LISPRO 300 UNITS/3 ML VIAL SQ SCH (21:28)
[2020-02-05] MEDS: *HR* HYDROcodone/Acet 5/325 mg TABLET PO PRN (21:28)
[2020-02-05] MEDS: Metoprolol 100 MG TABLET PO SCH (21:28)
[2020-02-05] MEDS: Ipratropium/Albuterol Neb 3 ML IH SCH (22:34)
[2020-02-05] MEDS: Budesonide/Formoterol 160/4.5 1 PUFF INH IH SCH (22:35)
[2020-02-05] MEDS ORDERED: Chloraseptic Spray 177 ML BOTTLE MM PRN (23:07)
[2020-02-06] MEDS: Insulin LISPRO 300 UNITS/3 ML VIAL SQ SCH ×7 (00:36→23:58)
[2020-02-06] MEDS: Ipratropium/Albuterol Neb 3 ML IH SCH ×4 (03:36→22:16)
[2020-02-06 04:32] LABS: Basophils % 0.3 %; Eosinophils # 0.1 K/mcL (0.0-0.6); Eosinophils % 1.2 %; Hematocrit 28.8 % (37.5-50.1); Hemoglobin 8.8 g/dL (12.9-16.9); Immature Granulocytes % 0.4 % (0-4); Lymphocytes # 1.6 K/mcL (0.6-4.6); Lymphocytes % 17.7 %; Mean Corpuscular HGB Conc 30.6 g/dL (31.6-35.5); Mean Corpuscular Hemoglobin 25.7 pg (28.0-33.3); Mean Platelet Volume 9.3 fL (9.4-12.4); Monocytes # 0.6 K/mcL (0.0-1.3); Monocytes % 6.9 %; Neutrophils # 6.8 K/mcL (1.6-8.9); Platelet Count 169 K/mcL (140-400); Red Blood Count 3.43 M/mcL (4.19-5.50); Red Cell Distribution Width 17.9 % (11.5-14.5); Segmented Neutrophils % 73.5 %; White Blood Count 9.2 K/mcL (4.3-11.1)
[2020-02-06 04:40] LABS: INR 1.4; Prothrombin Time 15.8 Seconds (9.4-12.1)
[2020-02-06 04:42] LABS: Activated Partial Thrombo Time 31.3 Seconds (26.0-36.0)
[2020-02-06 04:53] LABS: Calcium 8.8 mg/dL (8.6-10.3); Magnesium 2.1 mg/dL (1.6-2.6); Phosphorous 2.9 mg/dL (2.7-4.5); Potassium 4.1 mEq/L (3.5-5.1)
[2020-02-06] MEDS ORDERED: Insulin LISPRO 300 UNITS/3 ML VIAL SQ SCH ×3 (07:30→08:00)
[2020-02-06] MEDS: Bumetanide 1 MG/4 ML VIAL IVP SCH ×2 (08:53→16:20)
[2020-02-06] MEDS: lisinopriL 20 MG TABLET PO SCH (08:54)
[2020-02-06] MEDS: Metoprolol 100 MG TABLET PO SCH ×2 (08:54→20:33)
[2020-02-06] MEDS: Insulin DETEMIR 100 UNIT/ML X5UNITS SQ SCH ×2 (08:54→20:32)
[2020-02-06] MEDS: *HR* HYDROcodone/Acet 5/325 mg TABLET PO PRN ×3 (09:23→23:57)
[2020-02-06] MEDS: Budesonide/Formoterol 160/4.5 1 PUFF INH IH SCH ×2 (10:33→22:16)
[2020-02-06 11:58] LABS: % Iron Saturation 5 % (20-55); Iron 17 mcg/dL (65-175); Transferrin 233 mg/dL (203-362)
[2020-02-06 12:16] LABS: Ferritin 33 ng/mL (20-250)
[2020-02-06 12:22] LABS: Folate > 22.3 ng/mL (3.0-16.0); Vitamin B12 318 pg/mL (250-1100)
[2020-02-06] MEDS ORDERED: Vancomycin 2,000 MG/520 ML IV.SOLN IVPB ONE (13:06)
[2020-02-06] MEDS: Gabapentin 300 MG CAPSULE PO SCH ×2 (16:19→20:32)
[2020-02-06] MEDS: Piperacillin/Tazobactam 3.375 GM in 0.9 % Sodium Chloride Mini Bag 100 ML IVPB SCH (16:21)
[2020-02-06] MEDS ORDERED: *HR* Rivaroxaban 10 MG TABLET PO SCH (17:00)
[2020-02-06] MEDS ORDERED: Iron Sucrose Complex 400 MG in 0.9 % Sodium Chloride 250 ML IVPB ONE (17:07)
[2020-02-06 20:02] LABS: Adenovirus Not Detected (Not Detect); Bordetella Pertussis Not Detected (Not Detect); Chlamydophila pneumoniae Not Detected (Not Detect); Coronavirus 229E Not Detected (Not Detect); Coronavirus HKU1 Not Detected (Not Detect); Coronavirus NL63 Not Detected (Not Detect); Coronavirus OC43 Not Detected (Not Detect); Human Metapneumovirus Not Detected (Not Detect); Human Rhinovirus/Enterovirus Not Detected (Not Detect); Influenza A Subtype 2009 H1 Not Detected (Not Detect); Influenza B Not Detected (Not Detect); Mycoplasma pneumoniae Not Detected (Not Detect); Parainfluenza Virus 1 Not Detected (Not Detect); Parainfluenza Virus 2 Not Detected (Not Detect); Parainfluenza Virus 3 Not Detected (Not Detect); Parainfluenza Virus 4 Not Detected (Not Detect); Respiratory Syncytial Virus Not Detected (Not Detect); SARS-CoV-2 Not Detected (Not Detect)
[2020-02-06] MEDS ORDERED: NON-FORMULARY MEDICATION 1 EACH EACH (Vit C/E/Zn/Coppr/Lutein/Zeaxan [Preservision Areds 2 PO SCH (21:00)
[2020-02-06] MEDS ORDERED: 0.9 % Sodium Chloride 1,000 ML IVC SCH (21:15)
[2020-02-07] MEDS ORDERED: Vancomycin 2,000 MG/520 ML IV.SOLN IVPB SCH (01:00)
[2020-02-07] MEDS: Piperacillin/Tazobactam 3.375 GM in 0.9 % Sodium Chloride Mini Bag 100 ML IVPB SCH ×3 (01:46→16:47)
[2020-02-07] MEDS: Ipratropium/Albuterol Neb 3 ML IH SCH ×2 (03:54→10:59)
[2020-02-07] MEDS: Famotidine 20 MG/2 ML VIAL IVP SCH ×2 (05:50→16:51)
[2020-02-07] MEDS: Insulin LISPRO 300 UNITS/3 ML VIAL SQ SCH ×6 (05:51→17:00)
[2020-02-07] MEDS: lisinopriL 20 MG TABLET PO SCH (08:18)
[2020-02-07] MEDS: Metoprolol 100 MG TABLET PO SCH ×2 (08:19→21:11)
[2020-02-07] MEDS: Gabapentin 300 MG CAPSULE PO SCH ×4 (08:20→21:11)
[2020-02-07] MEDS: Bumetanide 1 MG/4 ML VIAL IVP SCH ×2 (08:28→16:50)
[2020-02-07] MEDS: Insulin DETEMIR 100 UNIT/ML X5UNITS SQ SCH ×2 (08:30→21:56)
[2020-02-07] MEDS: *HR* HYDROcodone/Acet 5/325 mg TABLET PO PRN ×2 (08:40→21:10)
[2020-02-07] MEDS ORDERED: Isosorbide MONOnitrate (24 HR) 30 MG TAB.ER.24H PO SCH (09:00)
[2020-02-07] MEDS ORDERED: Multivit/Ca/Min/Fe/FA 1 TAB TABLET PO SCH (09:00)
[2020-02-07] MEDS ORDERED: NON-FORMULARY MEDICATION 1 EACH EACH (Omega-3/Dha/Epa/Fish Oil [Fish Oil 1,000 Mg Softgel] PO SCH (09:00)
[2020-02-07] MEDS: Budesonide/Formoterol 160/4.5 1 PUFF INH IH SCH ×2 (10:59→22:25)
[2020-02-07] MEDS ORDERED: Ipratropium/Albuterol Neb 3 ML IH PRN (11:06)
[2020-02-07] MEDS ORDERED: Ondansetron 4 MG/2 ML VIAL IVP PRN ×2 (17:38→19:59)
[2020-02-07] MEDS ORDERED: *HR* FentaNYL (PF) 100 MCG/2 ML VIAL IVP PRN ×2 (17:38→19:59)
[2020-02-07] MEDS ORDERED: *HR* Propofol 200 MG/20 ML VIAL IVP ONE ×2 (17:54→18:21)
[2020-02-07] MEDS ORDERED: *HR* Etomidate 40 MG/20 ML VIAL IVP ONE (17:54)
[2020-02-07] MEDS ORDERED: *HR* FentaNYL (PF) 100 MCG/2 ML VIAL ONE (18:01)
[2020-02-07] MEDS ORDERED: *HR* PHENYLEPHRINE 1,000 MCG/10 ML SYRINGE IVP ONE (18:26)
[2020-02-07] MEDS ORDERED: Naloxone 0.4 MG/ML INJ IVP PRN (19:59)
[2020-02-07] MEDS ORDERED: Dextrose Gel 15 GM/37.5 ML TUBE PO PRN ×2 (19:59)
[2020-02-07] MEDS ORDERED: Chloraseptic Spray 177 ML BOTTLE MM PRN (19:59)
[2020-02-07] MEDS ORDERED: *HR* Dextrose 50 % in Water (Vial) 50 ML VIAL IVP PRN (19:59)
[2020-02-07] MEDS ORDERED: Acetaminophen 325 MG TABLET PO PRN (19:59)
[2020-02-07] MEDS ORDERED: D5% in Water 1,000 ML IVC PRN (19:59)
[2020-02-08] MEDS ORDERED: Vancomycin 2,000 MG/520 ML IV.SOLN IVPB SCH (01:00)
[2020-02-08] MEDS: Piperacillin/Tazobactam 3.375 GM in 0.9 % Sodium Chloride Mini Bag 100 ML IVPB SCH ×3 (01:26→15:28)
[2020-02-08] MEDS: Insulin LISPRO 300 UNITS/3 ML VIAL SQ SCH ×7 (01:36→17:39)
[2020-02-08 02:24] LABS: Calcium 8.4 mg/dL (8.6-10.3); Potassium 3.8 mEq/L (3.5-5.1)
[2020-02-08] MEDS ORDERED: Insulin LISPRO 300 UNITS/3 ML VIAL SQ SCH (07:30)
[2020-02-08] MEDS: Budesonide/Formoterol 160/4.5 1 PUFF INH IH SCH ×2 (07:58→20:18)
[2020-02-08] MEDS: Bumetanide 1 MG/4 ML VIAL IVP SCH ×2 (08:20→17:40)
[2020-02-08] MEDS: Multivit/Ca/Min/Fe/FA 1 TAB TABLET PO SCH (08:21)
[2020-02-08] MEDS: *HR* HYDROcodone/Acet 5/325 mg TABLET PO PRN ×2 (08:21→15:27)
[2020-02-08] MEDS: Metoprolol 100 MG TABLET PO SCH ×2 (08:23→21:14)
[2020-02-08] MEDS: Isosorbide MONOnitrate (24 HR) 30 MG TAB.ER.24H PO SCH (08:23)
[2020-02-08] MEDS: Gabapentin 300 MG CAPSULE PO SCH ×4 (08:23→21:15)
[2020-02-08] MEDS: Insulin DETEMIR 100 UNIT/ML X5UNITS SQ SCH ×2 (08:24→21:13)
[2020-02-08 08:37] LABS: Basophils % 0.6 %; Eosinophils # 0.2 K/mcL (0.0-0.6); Eosinophils % 3.6 %; Hemoglobin 8.2 g/dL (12.9-16.9); Immature Granulocytes % 0.6 % (0-4); Lymphocytes # 1.4 K/mcL (0.6-4.6); Lymphocytes % 21.1 %; Mean Corpuscular HGB Conc 29.3 g/dL (31.6-35.5); Mean Corpuscular Hemoglobin 24.5 pg (28.0-33.3); Mean Corpuscular Volume 83.6 fL (83.0-100.0); Monocytes # 0.5 K/mcL (0.0-1.3); Monocytes % 6.9 %; Neutrophils # 4.5 K/mcL (1.6-8.9); Platelet Count 176 K/mcL (140-400); Red Blood Count 3.35 M/mcL (4.19-5.50); Red Cell Distribution Width 17.9 % (11.5-14.5); Segmented Neutrophils % 67.2 %; White Blood Count 6.7 K/mcL (4.3-11.1)
[2020-02-08 08:57] LABS: Calcium 8.4 mg/dL (8.6-10.3); Magnesium 2.1 mg/dL (1.6-2.6); Potassium 3.9 mEq/L (3.5-5.1)
[2020-02-08] MEDS ORDERED: lisinopriL 20 MG TABLET PO SCH (09:00)
[2020-02-08] MEDS ORDERED: *HR* Rivaroxaban 10 MG TABLET PO SCH (17:00)
[2020-02-08] MEDS: *HR* Rivaroxaban 10 MG TABLET PO SCH (17:40)
[2020-02-09] MEDS: Piperacillin/Tazobactam 3.375 GM in 0.9 % Sodium Chloride Mini Bag 100 ML IVPB SCH ×2 (00:57→09:43)
[2020-02-09 01:11] LABS: Basophils % 0.3 %; Eosinophils # 0.4 K/mcL (0.0-0.6); Eosinophils % 4.1 %; Hematocrit 26.8 % (37.5-50.1); Hemoglobin 8.1 g/dL (12.9-16.9); Immature Granulocytes % 0.4 % (0-4); Lymphocytes # 1.6 K/mcL (0.6-4.6); Lymphocytes % 17.8 %; Mean Corpuscular HGB Conc 30.2 g/dL (31.6-35.5); Mean Corpuscular Hemoglobin 25.7 pg (28.0-33.3); Mean Corpuscular Volume 85.1 fL (83.0-100.0); Mean Platelet Volume 8.6 fL (9.4-12.4); Monocytes # 0.6 K/mcL (0.0-1.3); Neutrophils # 6.4 K/mcL (1.6-8.9); Nucleated Red Blood Cells 0.2 /100 WBC (0); Platelet Count 180 K/mcL (140-400); Red Blood Count 3.15 M/mcL (4.19-5.50); Red Cell Distribution Width 17.7 % (11.5-14.5); Segmented Neutrophils % 70.4 %; White Blood Count 9.1 K/mcL (4.3-11.1)
[2020-02-09 01:30] LABS: Calcium 8.7 mg/dL (8.6-10.3); Potassium 4.2 mEq/L (3.5-5.1)
[2020-02-09] MEDS ORDERED: Vancomycin 1,500 MG/265 ML IV.SOLN IVPB SCH (02:00)
[2020-02-09] MEDS: Budesonide/Formoterol 160/4.5 1 PUFF INH IH SCH ×2 (07:35→19:31)
[2020-02-09] MEDS: Bumetanide 1 MG/4 ML VIAL IVP SCH (09:41)
[2020-02-09] MEDS: Isosorbide MONOnitrate (24 HR) 30 MG TAB.ER.24H PO SCH (09:42)
[2020-02-09] MEDS: Multivit/Ca/Min/Fe/FA 1 TAB TABLET PO SCH (09:42)
[2020-02-09] MEDS: Metoprolol 100 MG TABLET PO SCH ×2 (09:42→22:42)
[2020-02-09] MEDS: lisinopriL 20 MG TABLET PO SCH (09:42)
[2020-02-09] MEDS: Gabapentin 300 MG CAPSULE PO SCH ×4 (09:42→22:42)
[2020-02-09] MEDS: Insulin LISPRO 300 UNITS/3 ML VIAL SQ SCH ×6 (09:43→16:38)
[2020-02-09] MEDS: Insulin DETEMIR 100 UNIT/ML X5UNITS SQ SCH ×2 (09:49→22:42)
[2020-02-09] MEDS: *HR* Rivaroxaban 10 MG TABLET PO SCH (16:37)
[2020-02-10] MEDS: *HR* HYDROcodone/Acet 5/325 mg TABLET PO PRN ×3 (01:08→23:43)
[2020-02-10 07:51] LABS: Magnesium 2.2 mg/dL (1.6-2.6); Phosphorous 3.7 mg/dL (2.7-4.5); Potassium 4.8 mEq/L (3.5-5.1)
[2020-02-10 07:52] LABS: Monocytes % 7.4 %
[2020-02-10 07:54] LABS: Basophils % 0.3 %; Eosinophils # 0.2 K/mcL (0.0-0.6); Eosinophils % 2.5 %; Hematocrit 28.3 % (37.5-50.1); Hemoglobin 8.3 g/dL (12.9-16.9); Lymphocytes # 2.5 K/mcL (0.6-4.6); Lymphocytes % 25.7 %; Mean Corpuscular HGB Conc 29.3 g/dL (31.6-35.5); Mean Corpuscular Hemoglobin 25.1 pg (28.0-33.3); Mean Corpuscular Volume 85.5 fL (83.0-100.0); Mean Platelet Volume 9.2 fL (9.4-12.4); Monocytes # 0.7 K/mcL (0.0-1.3); Platelet Count 174 K/mcL (140-400); Red Blood Count 3.31 M/mcL (4.19-5.50); Red Cell Distribution Width 18.1 % (11.5-14.5); Segmented Neutrophils % 63.1 %; White Blood Count 9.6 K/mcL (4.3-11.1)
[2020-02-10 08:01] LABS: Neutrophils # 6.1 K/mcL (1.6-8.9)
[2020-02-10] MEDS: Budesonide/Formoterol 160/4.5 1 PUFF INH IH SCH ×2 (08:02→21:19)
[2020-02-10 08:57] LABS: Anisocytosis 1+ (Not Present); Hypochromasia Present (Not Present); Platelet Estimate Normal (Normal)
[2020-02-10] MEDS: Gabapentin 300 MG CAPSULE PO SCH ×4 (09:32→20:01)
[2020-02-10] MEDS: Insulin LISPRO 300 UNITS/3 ML VIAL SQ SCH ×6 (09:33→16:44)
[2020-02-10] MEDS: Isosorbide MONOnitrate (24 HR) 30 MG TAB.ER.24H PO SCH (09:33)
[2020-02-10] MEDS: lisinopriL 20 MG TABLET PO SCH (09:33)
[2020-02-10] MEDS: Insulin DETEMIR 100 UNIT/ML X5UNITS SQ SCH ×2 (09:33→20:02)
[2020-02-10] MEDS: Multivit/Ca/Min/Fe/FA 1 TAB TABLET PO SCH (09:33)
[2020-02-10] MEDS: Metoprolol 100 MG TABLET PO SCH ×2 (09:33→21:47)
[2020-02-10] MEDS ORDERED: Morphine Sulfate 2 MG/ML SYRINGE IVP ONE (13:52)
[2020-02-10] MEDS: *HR* Rivaroxaban 10 MG TABLET PO SCH (16:43)
[2020-02-11 06:27] LABS: White Blood Count 7.3 K/mcL (4.3-11.1)
[2020-02-11 06:28] LABS: Basophils % 0.4 %; Eosinophils # 0.2 K/mcL (0.0-0.6); Hematocrit 27.7 % (37.5-50.1); Hemoglobin 7.9 g/dL (12.9-16.9); Immature Granulocytes % 0.7 % (0-4); Lymphocytes # 1.7 K/mcL (0.6-4.6); Lymphocytes % 22.9 %; Mean Corpuscular HGB Conc 28.5 g/dL (31.6-35.5); Mean Corpuscular Volume 87.7 fL (83.0-100.0); Mean Platelet Volume 8.8 fL (9.4-12.4); Monocytes # 0.4 K/mcL (0.0-1.3); Monocytes % 5.6 %; Neutrophils # 4.9 K/mcL (1.6-8.9); Platelet Count 169 K/mcL (140-400); Red Blood Count 3.16 M/mcL (4.19-5.50); Red Cell Distribution Width 18.1 % (11.5-14.5); Segmented Neutrophils % 67.4 %
[2020-02-11 06:46] LABS: Calcium 8.7 mg/dL (8.6-10.3); Magnesium 2.2 mg/dL (1.6-2.6); Potassium 4.4 mEq/L (3.5-5.1)
[2020-02-11 06:49] LABS: Anisocytosis 1+ (Not Present); Hypochromasia Present (Not Present); Microcytosis Present (Not Present); Platelet Estimate Normal (Normal); Polychromasia 1+ (Not Present)
[2020-02-11] MEDS: Budesonide/Formoterol 160/4.5 1 PUFF INH IH SCH ×2 (07:48→21:40)
[2020-02-11] MEDS: Gabapentin 300 MG CAPSULE PO SCH ×3 (08:08→16:51)
[2020-02-11] MEDS: Metoprolol 100 MG TABLET PO SCH ×2 (08:08→19:56)
[2020-02-11] MEDS: lisinopriL 20 MG TABLET PO SCH (08:09)
[2020-02-11] MEDS: Multivit/Ca/Min/Fe/FA 1 TAB TABLET PO SCH (08:09)
[2020-02-11] MEDS: Isosorbide MONOnitrate (24 HR) 30 MG TAB.ER.24H PO SCH (08:09)
[2020-02-11] MEDS: Insulin LISPRO 300 UNITS/3 ML VIAL SQ SCH ×6 (08:10→16:52)
[2020-02-11] MEDS: Insulin DETEMIR 100 UNIT/ML X5UNITS SQ SCH ×2 (08:14→19:58)
[2020-02-11] MEDS: *HR* HYDROcodone/Acet 5/325 mg TABLET PO PRN (16:50)
[2020-02-11] MEDS: *HR* Rivaroxaban 15 MG TABLET PO SCH (16:51)
[2020-02-12 06:10] LABS: Basophils % 0.4 %; Eosinophils # 0.1 K/mcL (0.0-0.6); Eosinophils % 2.6 %; Hematocrit 28.3 % (37.5-50.1); Hemoglobin 8.1 g/dL (12.9-16.9); Immature Granulocytes % 0.6 % (0-4); Lymphocytes # 1.2 K/mcL (0.6-4.6); Lymphocytes % 21.8 %; Mean Corpuscular HGB Conc 28.6 g/dL (31.6-35.5); Mean Corpuscular Hemoglobin 25.2 pg (28.0-33.3); Mean Corpuscular Volume 87.9 fL (83.0-100.0); Mean Platelet Volume 9.1 fL (9.4-12.4); Monocytes # 0.3 K/mcL (0.0-1.3); Monocytes % 5.7 %; Neutrophils # 3.8 K/mcL (1.6-8.9); Platelet Count 168 K/mcL (140-400); Red Blood Count 3.22 M/mcL (4.19-5.50); Red Cell Distribution Width 17.9 % (11.5-14.5); Segmented Neutrophils % 68.9 %; White Blood Count 5.5 K/mcL (4.3-11.1)
[2020-02-12 06:14] LABS: Calcium 8.7 mg/dL (8.6-10.3); Magnesium 2.5 mg/dL (1.6-2.6); Phosphorous 3.8 mg/dL (2.7-4.5); Potassium 4.8 mEq/L (3.5-5.1)
[2020-02-12 06:28] LABS: Anisocytosis 1+ (Not Present); Hypochromasia Present (Not Present); Microcytosis Present (Not Present); Platelet Estimate Normal (Normal); Polychromasia 1+ (Not Present)
[2020-02-12] MEDS: Budesonide/Formoterol 160/4.5 1 PUFF INH IH SCH ×2 (07:30→20:00)
[2020-02-12] MEDS: Ipratropium/Albuterol Neb 3 ML IH PRN ×2 (07:30→20:00)
[2020-02-12] MEDS: Gabapentin 300 MG CAPSULE PO SCH ×5 (08:34→20:52)
[2020-02-12] MEDS: Insulin LISPRO 300 UNITS/3 ML VIAL SQ SCH ×6 (08:44→17:32)
[2020-02-12] MEDS: Isosorbide MONOnitrate (24 HR) 30 MG TAB.ER.24H PO SCH (08:45)
[2020-02-12] MEDS: lisinopriL 20 MG TABLET PO SCH (08:45)
[2020-02-12] MEDS: Insulin DETEMIR 100 UNIT/ML X5UNITS SQ SCH ×2 (08:46→20:53)
[2020-02-12] MEDS: Metoprolol 100 MG TABLET PO SCH ×2 (08:46→20:52)
[2020-02-12] MEDS: Phenylephrine Nasal 0.25% 15 ML BOTTLE NS SCH ×2 (08:46→21:40)
[2020-02-12] MEDS: Multivit/Ca/Min/Fe/FA 1 TAB TABLET PO SCH (08:47)
[2020-02-12] MEDS: *HR* Rivaroxaban 15 MG TABLET PO SCH (17:32)
[2020-02-12] MEDS: *HR* HYDROcodone/Acet 5/325 mg TABLET PO PRN (20:51)
[2020-02-13] MEDS: *HR* HYDROcodone/Acet 5/325 mg TABLET PO PRN ×3 (03:38→20:03)
[2020-02-13 07:23] LABS: Basophils % 0.6 %; Eosinophils # 0.2 K/mcL (0.0-0.6); Eosinophils % 2.3 %; Hemoglobin 7.9 g/dL (12.9-16.9); Immature Granulocytes % 0.9 % (0-4); Lymphocytes # 1.5 K/mcL (0.6-4.6); Mean Corpuscular HGB Conc 29.3 g/dL (31.6-35.5); Mean Corpuscular Hemoglobin 24.2 pg (28.0-33.3); Mean Corpuscular Volume 82.8 fL (83.0-100.0); Mean Platelet Volume 8.7 fL (9.4-12.4); Monocytes # 0.4 K/mcL (0.0-1.3); Monocytes % 6.1 %; Neutrophils # 4.9 K/mcL (1.6-8.9); Platelet Count 171 K/mcL (140-400); Red Blood Count 3.26 M/mcL (4.19-5.50); Red Cell Distribution Width 17.4 % (11.5-14.5); Segmented Neutrophils % 69.1 %
[2020-02-13 07:33] LABS: Calcium 8.8 mg/dL (8.6-10.3); Magnesium 2.7 mg/dL (1.6-2.6); Phosphorous 3.3 mg/dL (2.7-4.5); Potassium 5.3 mEq/L (3.5-5.1)
[2020-02-13] MEDS: Multivit/Ca/Min/Fe/FA 1 TAB TABLET PO SCH (08:30)
[2020-02-13] MEDS: Gabapentin 300 MG CAPSULE PO SCH ×4 (08:30→20:15)
[2020-02-13] MEDS: lisinopriL 20 MG TABLET PO SCH (08:30)
[2020-02-13] MEDS: Isosorbide MONOnitrate (24 HR) 30 MG TAB.ER.24H PO SCH (08:31)
[2020-02-13] MEDS: Metoprolol 100 MG TABLET PO SCH ×2 (08:31→20:15)
[2020-02-13] MEDS: Insulin LISPRO 300 UNITS/3 ML VIAL SQ SCH ×6 (08:32→17:06)
[2020-02-13] MEDS: Insulin DETEMIR 100 UNIT/ML X5UNITS SQ SCH ×2 (09:19→22:17)
[2020-02-13] MEDS ORDERED: MOM Conc 10 ML UD.LIQ PO STA (10:29)
[2020-02-13] MEDS: Ipratropium/Albuterol Neb 3 ML IH PRN ×2 (10:46→20:21)
[2020-02-13] MEDS: Budesonide/Formoterol 160/4.5 1 PUFF INH IH SCH ×2 (10:46→20:20)
[2020-02-13] MEDS ORDERED: Bumetanide 1 MG TABLET PO SCH (12:00)
[2020-02-13] MEDS ORDERED: *HR* Rivaroxaban 10 MG TABLET PO SCH (17:00)
[2020-02-13 17:48] LABS: Adenovirus Not Detected (Not Detect); Bordetella Pertussis Not Detected (Not Detect); Chlamydophila pneumoniae Not Detected (Not Detect); Coronavirus 229E Not Detected (Not Detect); Coronavirus HKU1 Not Detected (Not Detect); Coronavirus NL63 Not Detected (Not Detect); Coronavirus OC43 Not Detected (Not Detect); Human Metapneumovirus Not Detected (Not Detect); Human Rhinovirus/Enterovirus Not Detected (Not Detect); Influenza A Subtype 2009 H1 Not Detected (Not Detect); Influenza B Not Detected (Not Detect); Mycoplasma pneumoniae Not Detected (Not Detect); Parainfluenza Virus 1 Not Detected (Not Detect); Parainfluenza Virus 2 Not Detected (Not Detect); Parainfluenza Virus 3 Not Detected (Not Detect); Parainfluenza Virus 4 Not Detected (Not Detect); Respiratory Syncytial Virus Not Detected (Not Detect); SARS-CoV-2 Not Detected (Not Detect)
[2020-02-14 00:16] VITALS: BP 110/71
[2020-02-14] MEDS: *HR* HYDROcodone/Acet 5/325 mg TABLET PO PRN (01:49)
== END 2020-02-14 02:00 | disposition other institution (70) | DRG 622 ==
LOC: 3ANU → SUATTDRO 16:25
PROVIDERS: ADMIT Internal Medicine; ATTEND Internal Medicine

== ENCOUNTER 2020-09-06 13:15 | Inpatient (IN) ==
[2020-09-06] MEDS ORDERED: [UNRECOGNIZED DRUG - OTHER] IVPB ONE (13:30)
[2020-09-06] MEDS ORDERED: WATER FOR INJ IVPB ONE (13:30)
[2020-09-06] MEDS ORDERED: HUM PROTHROMBIN CPLX IVPB ONE (13:30)
[2020-09-06] MEDS ORDERED: Naloxone 0.4 MG/ML INJ IVP PRN (15:53)
[2020-09-06] MEDS ORDERED: 0.9 % Sodium Chloride 250 ML ONE ×2 (16:08→19:44)
[2020-09-06 16:43] LABS: Hematocrit 23.5 % (37.5-50.1); Hemoglobin 6.9 g/dL (12.9-16.9)
[2020-09-06] MEDS ORDERED: SODIUM CHLORIDE/NAHCO3/KCL/PEG 4,000 ML SOLN.RECON PO ONE (17:00)
[2020-09-06] MEDS: Pantoprazole 40 MG in 0.9 % Sodium Chloride Mini Bag 100 ML IVC SCH ×2 (17:28→22:09)
[2020-09-06] MEDS: Ipratropium/Albuterol Neb 3 ML IH SCH ×2 (19:53→23:43)
[2020-09-06 21:02] LABS: Calcium 7.5 mg/dL (8.6-10.3); Potassium 4.7 mEq/L (3.5-5.1)
[2020-09-06 21:04] LABS: Albumin 2.7 g/dL (3.5-5.7); Albumin/Globulin Ratio 1.1 (1.1-2.2); Bilirubin,Direct 0.1 mg/dL (0.0-0.2); Bilirubin,Indirect 0.3 mg/dL (0.0-1.0); Bilirubin,Total 0.4 mg/dL (0.3-1.0); Globulin 2.4 g/dL (2.4-3.5); Total Protein 5.1 g/dL (6.4-8.9)
[2020-09-07 01:56] LABS: Hematocrit 25.2 % (37.5-50.1); Hemoglobin 7.8 g/dL (12.9-16.9)
[2020-09-07] MEDS: Pantoprazole 40 MG in 0.9 % Sodium Chloride Mini Bag 100 ML IVC SCH ×5 (03:15→23:24)
[2020-09-07] MEDS: Ipratropium/Albuterol Neb 3 ML IH SCH ×6 (03:26→23:38)
[2020-09-07 05:50] LABS: Hematocrit 21.9 % (37.5-50.1); Hemoglobin 6.8 g/dL (12.9-16.9)
[2020-09-07 06:01] LABS: INR 1.1; Prothrombin Time 12.6 Seconds (9.4-12.1)
[2020-09-07 06:05] LABS: Albumin 2.5 g/dL (3.5-5.7); Albumin/Globulin Ratio 1.1 (1.1-2.2); Bilirubin,Total 0.3 mg/dL (0.3-1.0); Calcium 7.3 mg/dL (8.6-10.3); Globulin 2.2 g/dL (2.4-3.5); Potassium 4.7 mEq/L (3.5-5.1); Total Protein 4.7 g/dL (6.4-8.9)
[2020-09-07] MEDS ORDERED: 0.9 % Sodium Chloride 250 ML IVC SCH ×3 (07:00→07:15)
[2020-09-07 07:02] LABS: Basophils % 0.3 %; Eosinophils # 0.2 K/mcL (0.0-0.6); Eosinophils % 1.8 %; Immature Granulocytes % 0.6 % (0-4); Lymphocytes # 1.6 K/mcL (0.6-4.6); Lymphocytes % 16.1 %; Mean Corpuscular HGB Conc 31.2 g/dL (31.6-35.5); Mean Corpuscular Volume 86.5 fL (83.0-100.0); Mean Platelet Volume 9.7 fL (9.4-12.4); Monocytes # 0.4 K/mcL (0.0-1.3); Monocytes % 4.3 %; Neutrophils # 7.8 K/mcL (1.6-8.9); Nucleated Red Blood Cells 0.4 /100 WBC (0); Platelet Count 108 K/mcL (140-400); Red Blood Count 2.52 M/mcL (4.19-5.50); Red Cell Distribution Width 17.4 % (11.5-14.5); Segmented Neutrophils % 76.9 %; White Blood Count 10.2 K/mcL (4.3-11.1)
[2020-09-07] MEDS ORDERED: Calcium Gluconate 1gm/50mL 1 GM/50 ML BAG IVPB PRN (07:04)
[2020-09-07] MEDS ORDERED: Furosemide 20 MG/2 ML VIAL IVP ONE ×2 (07:06→18:03)
[2020-09-07 07:38] LABS: VBG Ionized Calcium 1.14 mmol/L (1.15-1.35)
[2020-09-07] MEDS ORDERED: *HR* Vasopressin 20 UNIT/ML VIAL ONE (07:43)
[2020-09-07] MEDS ORDERED: *HR* Midazolam HCl 2 MG/2 ML VIAL ONE (07:44)
[2020-09-07] MEDS ORDERED: Lidocaine -MPF 2% 2 ML VIAL ONE (07:45)
[2020-09-07] MEDS: 0.9 % Sodium Chloride 1,000 ML IVC SCH (08:08)
[2020-09-07 16:12] LABS: Hematocrit 26.9 % (37.5-50.1); Hemoglobin 8.4 g/dL (12.9-16.9)
[2020-09-07] MEDS: Gabapentin 400 MG CAPSULE PO SCH (21:16)
[2020-09-08] MEDS: Pantoprazole 40 MG in 0.9 % Sodium Chloride Mini Bag 100 ML IVC SCH ×2 (03:35→08:40)
[2020-09-08] MEDS: Ipratropium/Albuterol Neb 3 ML IH SCH ×8 (03:40→23:46)
[2020-09-08] MEDS: 0.9 % Sodium Chloride 1,000 ML IVC SCH (03:46)
[2020-09-08 04:14] LABS: VBG Ionized Calcium 1.03 mmol/L (1.15-1.35)
[2020-09-08 04:29] LABS: Calcium 8.1 mg/dL (8.6-10.3); Potassium 4.1 mEq/L (3.5-5.1)
[2020-09-08 05:55] LABS: Phosphorous 4.2 mg/dL (2.7-4.5)
[2020-09-08 05:57] LABS: Basophils % 0.3 %; Eosinophils # 0.2 K/mcL (0.0-0.6); Eosinophils % 1.8 %; Hematocrit 28.1 % (37.5-50.1); Hemoglobin 8.8 g/dL (12.9-16.9); Immature Granulocytes % 0.7 % (0-4); Lymphocytes # 1.4 K/mcL (0.6-4.6); Mean Corpuscular HGB Conc 31.3 g/dL (31.6-35.5); Mean Corpuscular Hemoglobin 27.4 pg (28.0-33.3); Mean Corpuscular Volume 87.5 fL (83.0-100.0); Mean Platelet Volume 9.4 fL (9.4-12.4); Monocytes # 0.5 K/mcL (0.0-1.3); Monocytes % 5.2 %; Platelet Count 114 K/mcL (140-400); Red Blood Count 3.21 M/mcL (4.19-5.50); Red Cell Distribution Width 17.5 % (11.5-14.5); White Blood Count 10.3 K/mcL (4.3-11.1)
[2020-09-08] MEDS: Gabapentin 400 MG CAPSULE PO SCH ×2 (08:41→20:53)
[2020-09-08] MEDS ORDERED: Dextrose Gel 15 GM/37.5 ML TUBE PO PRN ×8 (08:50→11:57)
[2020-09-08] MEDS ORDERED: *HR* Dextrose 50 % in Water (Vial) 50 ML VIAL IVP PRN ×4 (08:50→11:57)
[2020-09-08] MEDS ORDERED: D5% in Water 1,000 ML IVC PRN ×4 (08:50→11:57)
[2020-09-08] MEDS ORDERED: Calcium Gluconate 1gm/50mL 1 GM/50 ML BAG IVPB SCH (11:00)
[2020-09-08] MEDS ORDERED: Insulin LISPRO 300 UNITS/3 ML VIAL SUBQ SCH ×6 (11:30→21:00)
[2020-09-08] MEDS ORDERED: Naloxone 0.4 MG/ML INJ IVP PRN (11:57)
[2020-09-08] MEDS: Metoprolol 100 MG TABLET PO SCH ×2 (12:49→20:53)
[2020-09-08] MEDS: Budesonide/Formoterol 160/4.5 1 PUFF INH IH SCH ×2 (13:37→19:54)
[2020-09-08] MEDS ORDERED: *HR* LORazepam 1 MG TABLET PO PRN (15:50)
[2020-09-08] MEDS: Insulin LISPRO 300 UNITS/3 ML VIAL SUBQ SCH (16:32)
[2020-09-08] MEDS: Furosemide 40 MG in 0.9 % Sodium Chloride 50 ML IV SCH (19:02)
[2020-09-08] MEDS: Isosorbide MONOnitrate (24 HR) 30 MG TAB.ER.24H PO SCH (20:53)
[2020-09-08] MEDS: Insulin DETEMIR 100 UNIT/ML X5UNITS SUBQ SCH (20:53)
[2020-09-08] MEDS ORDERED: NON-FORMULARY MEDICATION 1 EACH EACH (Insulin Glargine,Hum.Rec.Anlog [Lantus Solostar] 100 SQ SCH (21:00)
[2020-09-09] MEDS: Ipratropium/Albuterol Neb 3 ML IH SCH ×5 (04:04→20:34)
[2020-09-09 04:47] LABS: VBG Ionized Calcium 1.26 mmol/L (1.15-1.35)
[2020-09-09 04:55] LABS: Hematocrit 28.7 % (37.5-50.1); Mean Corpuscular HGB Conc 31.4 g/dL (31.6-35.5); Mean Corpuscular Hemoglobin 27.8 pg (28.0-33.3); Mean Corpuscular Volume 88.6 fL (83.0-100.0); Mean Platelet Volume 9.7 fL (9.4-12.4); Platelet Count 108 K/mcL (140-400); Red Blood Count 3.24 M/mcL (4.19-5.50); Red Cell Distribution Width 18.3 % (11.5-14.5); White Blood Count 10.5 K/mcL (4.3-11.1)
[2020-09-09] MEDS: Budesonide/Formoterol 160/4.5 1 PUFF INH IH SCH ×2 (08:31→20:34)
[2020-09-09] MEDS: Gabapentin 400 MG CAPSULE PO SCH ×2 (08:47→20:35)
[2020-09-09] MEDS: Multivit/Ca/Min/Fe/FA 1 TAB TABLET PO SCH (08:47)
[2020-09-09 08:48] LABS: Calcium 8.6 mg/dL (8.6-10.3); Potassium 4.4 mEq/L (3.5-5.1)
[2020-09-09] MEDS: Insulin DETEMIR 100 UNIT/ML X5UNITS SUBQ SCH ×2 (08:48→20:36)
[2020-09-09] MEDS: Insulin LISPRO 300 UNITS/3 ML VIAL SUBQ SCH ×3 (08:48→16:52)
[2020-09-09] MEDS: Metoprolol 100 MG TABLET PO SCH ×2 (08:48→20:36)
[2020-09-09] MEDS: Furosemide 40 MG in 0.9 % Sodium Chloride 50 ML IV SCH (09:08)
[2020-09-09] MEDS ORDERED: *HR* LORazepam 1 MG TABLET PO PRN (10:07)
[2020-09-09] MEDS ORDERED: Furosemide 40 MG/4 ML VIAL IVP STA (11:16)
[2020-09-09 11:32] LABS: ABG Base Excess 3 mEq/L (-2 to 3); ABG HCO3 29 mEq/L (21-27); ABG Oxygen Saturation 97 % (95-98); ABG PCO2 50 mmHg (35-45); ABG PH 7.37 pH Units (7.32-7.45); ABG PO2 92 mmHg (85-104); ABG TCO2 31 mEq/L (20-26)
[2020-09-09] MEDS: *HR* HYDROcodone/Acet 5/325 mg TABLET PO PRN ×2 (14:13→20:57)
[2020-09-09] MEDS: Isosorbide MONOnitrate (24 HR) 30 MG TAB.ER.24H PO SCH (20:35)
[2020-09-10] MEDS: Ipratropium/Albuterol Neb 3 ML IH SCH ×7 (00:06→23:33)
[2020-09-10 01:12] LABS: Basophils % 0.2 %; Eosinophils # 0.4 K/mcL (0.0-0.6); Eosinophils % 3.9 %; Hematocrit 27.1 % (37.5-50.1); Hemoglobin 8.3 g/dL (12.9-16.9); Immature Granulocytes % 0.4 % (0-4); Lymphocytes # 1.5 K/mcL (0.6-4.6); Lymphocytes % 15.6 %; Mean Corpuscular HGB Conc 30.6 g/dL (31.6-35.5); Mean Corpuscular Hemoglobin 27.6 pg (28.0-33.3); Mean Platelet Volume 9.8 fL (9.4-12.4); Monocytes # 0.7 K/mcL (0.0-1.3); Monocytes % 7.3 %; Neutrophils # 6.8 K/mcL (1.6-8.9); Platelet Count 104 K/mcL (140-400); Red Blood Count 3.01 M/mcL (4.19-5.50); Red Cell Distribution Width 17.9 % (11.5-14.5); Segmented Neutrophils % 72.6 %; White Blood Count 9.4 K/mcL (4.3-11.1)
[2020-09-10 01:34] LABS: Estimated Average Glucose 128 mg/dl; Hemoglobin A1C 6.1 %
[2020-09-10 01:47] LABS: Alanine Aminotransferase 12 Units/L (7-52); Albumin 2.9 g/dL (3.5-5.7); Alkaline Phosphatase 57 Units/L (34-104); Aspartate Amino Transferase 11 Units/L (13-39); Bilirubin,Direct 0.2 mg/dL (0.0-0.2); Bilirubin,Indirect 0.4 mg/dL (0.0-1.0); Bilirubin,Total 0.6 mg/dL (0.3-1.0); Ferritin 41 ng/mL (20-250); Globulin 2.8 g/dL (2.4-3.5); Iron < 10 mcg/dL (65-175); Magnesium 2.2 mg/dL (1.6-2.6); Total Protein 5.7 g/dL (6.4-8.9); Transferrin 201 mg/dL (203-362); Troponin I 0.03 ng/mL (< 0.04)
[2020-09-10 01:55] LABS: Folate > 22.3 ng/mL (3.0-16.0); Vitamin B12 429 pg/mL (250-1100)
[2020-09-10] MEDS ORDERED: Iron Sucrose Complex 250 MG in 0.9 % Sodium Chloride 250 ML IVPB ONE (07:15)
[2020-09-10] MEDS: Budesonide/Formoterol 160/4.5 1 PUFF INH IH SCH ×2 (07:33→19:47)
[2020-09-10] MEDS: Metoprolol 100 MG TABLET PO SCH ×2 (07:59→21:17)
[2020-09-10] MEDS: Multivit/Ca/Min/Fe/FA 1 TAB TABLET PO SCH (07:59)
[2020-09-10] MEDS: Furosemide 40 MG/4 ML VIAL IVP SCH (07:59)
[2020-09-10] MEDS: Gabapentin 400 MG CAPSULE PO SCH ×2 (07:59→21:17)
[2020-09-10] MEDS: Insulin DETEMIR 100 UNIT/ML X5UNITS SUBQ SCH ×2 (08:00→21:17)
[2020-09-10] MEDS: Insulin LISPRO 300 UNITS/3 ML VIAL SUBQ SCH ×3 (08:01→18:19)
[2020-09-10] MEDS: Isosorbide MONOnitrate (24 HR) 30 MG TAB.ER.24H PO SCH (21:17)
[2020-09-11 02:14] LABS: Basophils % 0.5 %; Eosinophils # 0.4 K/mcL (0.0-0.6); Eosinophils % 4.7 %; Hematocrit 28.3 % (37.5-50.1); Hemoglobin 8.5 g/dL (12.9-16.9); Immature Granulocytes % 0.5 % (0-4); Lymphocytes # 1.4 K/mcL (0.6-4.6); Lymphocytes % 17.9 %; Mean Corpuscular Hemoglobin 26.7 pg (28.0-33.3); Mean Platelet Volume 9.5 fL (9.4-12.4); Monocytes # 0.4 K/mcL (0.0-1.3); Monocytes % 5.5 %; Neutrophils # 5.6 K/mcL (1.6-8.9); Platelet Count 120 K/mcL (140-400); Red Blood Count 3.18 M/mcL (4.19-5.50); Red Cell Distribution Width 17.2 % (11.5-14.5); Segmented Neutrophils % 70.9 %
[2020-09-11 02:38] LABS: Calcium 8.6 mg/dL (8.6-10.3); Magnesium 2.2 mg/dL (1.6-2.6); Potassium 4.4 mEq/L (3.5-5.1)
[2020-09-11] MEDS: Ipratropium/Albuterol Neb 3 ML IH SCH ×6 (03:45→23:19)
[2020-09-11] MEDS: Budesonide/Formoterol 160/4.5 1 PUFF INH IH SCH ×2 (07:32→20:02)
[2020-09-11] MEDS: Insulin LISPRO 300 UNITS/3 ML VIAL SUBQ SCH ×3 (09:58→16:04)
[2020-09-11] MEDS: Metoprolol 100 MG TABLET PO SCH ×2 (09:59→21:02)
[2020-09-11] MEDS: Multivit/Ca/Min/Fe/FA 1 TAB TABLET PO SCH (09:59)
[2020-09-11] MEDS: Gabapentin 400 MG CAPSULE PO SCH ×2 (09:59→21:02)
[2020-09-11] MEDS: Furosemide 40 MG/4 ML VIAL IVP SCH (09:59)
[2020-09-11] MEDS: Insulin DETEMIR 100 UNIT/ML X5UNITS SUBQ SCH ×2 (10:05→21:02)
[2020-09-11] MEDS: Isosorbide MONOnitrate (24 HR) 30 MG TAB.ER.24H PO SCH (21:02)
[2020-09-12 03:15] LABS: Basophils % 0.5 %; Eosinophils # 0.3 K/mcL (0.0-0.6); Eosinophils % 4.7 %; Hematocrit 24.9 % (37.5-50.1); Immature Granulocytes % 0.3 % (0-4); Lymphocytes # 1.4 K/mcL (0.6-4.6); Lymphocytes % 21.8 %; Mean Corpuscular HGB Conc 32.1 g/dL (31.6-35.5); Mean Corpuscular Hemoglobin 27.8 pg (28.0-33.3); Mean Corpuscular Volume 86.5 fL (83.0-100.0); Mean Platelet Volume 9.4 fL (9.4-12.4); Monocytes # 0.3 K/mcL (0.0-1.3); Monocytes % 5.1 %; Neutrophils # 4.4 K/mcL (1.6-8.9); Platelet Count 146 K/mcL (140-400); Red Blood Count 2.88 M/mcL (4.19-5.50); Red Cell Distribution Width 17.2 % (11.5-14.5); Segmented Neutrophils % 67.6 %; White Blood Count 6.4 K/mcL (4.3-11.1)
[2020-09-12 03:30] LABS: Calcium 8.3 mg/dL (8.6-10.3); Magnesium 2.1 mg/dL (1.6-2.6); Potassium 4.1 mEq/L (3.5-5.1)
[2020-09-12] MEDS: Ipratropium/Albuterol Neb 3 ML IH SCH ×3 (04:28→11:28)
[2020-09-12] MEDS: Budesonide/Formoterol 160/4.5 1 PUFF INH IH SCH (07:40)
[2020-09-12] MEDS: Multivit/Ca/Min/Fe/FA 1 TAB TABLET PO SCH (08:43)
[2020-09-12] MEDS: Gabapentin 400 MG CAPSULE PO SCH (08:43)
[2020-09-12] MEDS: Metoprolol 100 MG TABLET PO SCH (08:44)
[2020-09-12] MEDS: Furosemide 40 MG/4 ML VIAL IVP SCH (08:44)
[2020-09-12] MEDS: Insulin LISPRO 300 UNITS/3 ML VIAL SUBQ SCH ×2 (08:45→12:07)
[2020-09-12] MEDS: Insulin DETEMIR 100 UNIT/ML X5UNITS SUBQ SCH (08:46)
[2020-09-12 09:58] LABS: Influenza A PCR Negative (Negative); Influenza B PCR Negative (Negative); Resp. Syncytial Virus PCR Negative (Negative)
[2020-09-12 11:16] VITALS: BP 148/77
[2020-09-12 11:42] LABS: SARS-CoV-2 by PCR (In House) Negative (Negative)
== END 2020-09-12 15:43 | disposition other institution (70) | DRG 393 ==
LOC: ICNU 13:15 → EMEROOARM 13:15 → ICNU 14:35 → SUATTDRO 15:13 → 2ANU 09-08 15:47
PROVIDERS: ADMIT Internal Medicine; ATTEND Internal Medicine

== ENCOUNTER 2020-12-13 17:52 | Inpatient (IN) ==
[2020-12-14] MEDS ORDERED: 0.9 % Sodium Chloride 1,000 ML IV ONE (00:50)
[2020-12-14] MEDS ORDERED: cefTRIAXone 1,000 MG in Water for inj. (sterile) 10 ML IVP ONE (00:51)
[2020-12-14 01:59] LABS: Basophils % 0.6 %; Eosinophils # 0.3 K/mcL (0.0-0.6); Eosinophils % 4.1 %; Hematocrit 39.6 % (37.5-50.1); Hemoglobin 12.9 g/dL (12.9-16.9); Immature Granulocytes % 0.3 % (0-4); Lymphocytes # 1.8 K/mcL (0.6-4.6); Lymphocytes % 27.7 %; Mean Corpuscular HGB Conc 32.6 g/dL (31.6-35.5); Mean Corpuscular Hemoglobin 27.2 pg (28.0-33.3); Mean Corpuscular Volume 83.4 fL (83.0-100.0); Mean Platelet Volume 9.4 fL (9.4-12.4); Monocytes # 0.4 K/mcL (0.0-1.3); Monocytes % 6.5 %; Platelet Count 108 K/mcL (140-400); Red Blood Count 4.75 M/mcL (4.19-5.50); Red Cell Distribution Width 16.7 % (11.5-14.5); Segmented Neutrophils % 60.8 %; White Blood Count 6.6 K/mcL (4.3-11.1)
[2020-12-14 02:17] LABS: Albumin 3.6 g/dL (3.5-5.7); Bilirubin,Total 0.6 mg/dL (0.3-1.0); Calcium 9.2 mg/dL (8.6-10.3); Potassium 4.2 mEq/L (3.5-5.1)
[2020-12-14 02:19] LABS: Albumin/Globulin Ratio 1.1 (1.1-2.2); Globulin 3.4 g/dL (2.4-3.5)
[2020-12-14] MEDS ORDERED: Vancomycin (wt based) 1,000 MG VIAL IV STA (03:11)
[2020-12-14] MEDS ORDERED: Vancomycin 2,000 MG/520 ML IV.SOLN IVPB ONE (04:00)
[2020-12-14] MEDS ORDERED: Naloxone 0.4 MG/ML INJ IVP PRN (04:01)
[2020-12-14] MEDS ORDERED: Ondansetron 4 MG/2 ML VIAL IVP PRN (04:01)
[2020-12-14] MEDS ORDERED: *HR* Dextrose 50 % in Water (Vial) 50 ML VIAL IVP PRN (04:04)
[2020-12-14] MEDS ORDERED: Dextrose Gel 15 GM/37.5 ML TUBE PO PRN ×2 (04:04)
[2020-12-14] MEDS ORDERED: D5% in Water 1,000 ML IVC PRN (04:04)
[2020-12-14] MEDS: Insulin LISPRO 300 UNITS/3 ML VIAL SUBQ SCH ×3 (07:52→17:38)
[2020-12-14] MEDS ORDERED: Piperacillin/Tazobactam 3.375 GM in 0.9 % Sodium Chloride Mini Bag 100 ML IVPB SCH (08:00)
[2020-12-14] MEDS: Multivit/Ca/Min/Fe/FA 1 TAB TABLET PO SCH (08:17)
[2020-12-14] MEDS: Metoprolol 100 MG TABLET PO SCH ×2 (08:17→20:29)
[2020-12-14] MEDS: Bumetanide 1 MG TABLET PO SCH (08:18)
[2020-12-14] MEDS: Gabapentin 400 MG CAPSULE PO SCH ×4 (08:18→20:29)
[2020-12-14] MEDS: FISH OIL 1000 MG PO SCH (08:23)
[2020-12-14] MEDS: Budesonide/Formoterol 160/4.5 1 PUFF INH IH SCH ×2 (08:31→19:54)
[2020-12-14] MEDS ORDERED: Cefepime HCl 1,000 MG in Water for inj. (sterile) 10 ML IVP SCH (10:00)
[2020-12-14] MEDS: Cefepime HCl 2,000 MG in Water for inj. (sterile) 20 ML IVP SCH (12:07)
[2020-12-14] MEDS: Isosorbide MONOnitrate (24 HR) 30 MG TAB.ER.24H PO SCH (20:29)
[2020-12-14] MEDS: Insulin DETEMIR 100 UNIT/ML X5UNITS SUBQ SCH (20:29)
[2020-12-15] MEDS: Vancomycin 1,750 MG/517.5 ML IV.SOLN IVPB SCH (03:39)
[2020-12-15 05:49] LABS: Hematocrit 35.1 % (37.5-50.1); Mean Corpuscular HGB Conc 31.3 g/dL (31.6-35.5); Mean Corpuscular Hemoglobin 25.8 pg (28.0-33.3); Mean Corpuscular Volume 82.2 fL (83.0-100.0); Mean Platelet Volume 9.9 fL (9.4-12.4); Platelet Count 106 K/mcL (140-400); Red Blood Count 4.27 M/mcL (4.19-5.50); Red Cell Distribution Width 16.5 % (11.5-14.5); White Blood Count 6.2 K/mcL (4.3-11.1)
[2020-12-15 06:17] LABS: Calcium 8.6 mg/dL (8.6-10.3); Potassium 4.1 mEq/L (3.5-5.1)
[2020-12-15] MEDS: Budesonide/Formoterol 160/4.5 1 PUFF INH IH SCH ×2 (08:05→19:54)
[2020-12-15] MEDS: Insulin LISPRO 300 UNITS/3 ML VIAL SUBQ SCH ×3 (08:29→17:26)
[2020-12-15] MEDS: Insulin DETEMIR 100 UNIT/ML X5UNITS SUBQ SCH (08:29)
[2020-12-15] MEDS: Bumetanide 1 MG TABLET PO SCH (08:29)
[2020-12-15] MEDS: Metoprolol 100 MG TABLET PO SCH ×2 (08:30→20:42)
[2020-12-15] MEDS: Cefepime HCl 2,000 MG in Water for inj. (sterile) 20 ML IVP SCH (08:30)
[2020-12-15] MEDS: Multivit/Ca/Min/Fe/FA 1 TAB TABLET PO SCH (08:30)
[2020-12-15] MEDS: Gabapentin 400 MG CAPSULE PO SCH ×4 (08:30→20:43)
[2020-12-15] MEDS: FISH OIL 1000 MG PO SCH (08:30)
[2020-12-15] MEDS ORDERED: NON-FORMULARY MEDICATION 1 EACH EACH (Fluticasone/Salmeterol [Advair 500-50 Diskus] 1 EACH IH SCH (09:00)
[2020-12-15] MEDS: *HR* Heparin 5,000 UNIT/ML VIAL SQ SCH (20:42)
[2020-12-15] MEDS: Isosorbide MONOnitrate (24 HR) 30 MG TAB.ER.24H PO SCH (20:43)
[2020-12-15] MEDS ORDERED: Insulin DETEMIR 100 UNIT/ML X5UNITS SUBQ SCH (21:00)
[2020-12-16 03:43] LABS: Basophils % 0.4 %; Monocytes % 6.6 %; Red Cell Distribution Width 16.7 % (11.5-14.5)
[2020-12-16 03:45] LABS: Eosinophils # 0.2 K/mcL (0.0-0.6); Eosinophils % 2.4 %; Hematocrit 38.9 % (37.5-50.1); Immature Granulocytes % 0.2 % (0-4); Immature Platelets 1.1 % (1.1-6.1); Lymphocytes # 1.3 K/mcL (0.6-4.6); Mean Corpuscular HGB Conc 30.8 g/dL (31.6-35.5); Mean Corpuscular Hemoglobin 26.9 pg (28.0-33.3); Mean Corpuscular Volume 87.2 fL (83.0-100.0); Mean Platelet Volume 9.5 fL (9.4-12.4); Monocytes # 0.6 K/mcL (0.0-1.3); Red Blood Count 4.46 M/mcL (4.19-5.50); Segmented Neutrophils % 74.4 %; White Blood Count 8.4 K/mcL (4.3-11.1)
[2020-12-16 03:46] LABS: Neutrophils # 6.3 K/mcL (1.6-8.9); Platelet Count 95 K/mcL (140-400)
[2020-12-16 04:20] LABS: Calcium 8.7 mg/dL (8.6-10.3); Potassium 4.2 mEq/L (3.5-5.1)
[2020-12-16] MEDS: Vancomycin 1,750 MG/517.5 ML IV.SOLN IVPB SCH (04:24)
[2020-12-16] MEDS: *HR* Heparin 5,000 UNIT/ML VIAL SQ SCH ×3 (05:48→21:14)
[2020-12-16] MEDS: Budesonide/Formoterol 160/4.5 1 PUFF INH IH SCH ×2 (08:31→20:29)
[2020-12-16] MEDS ORDERED: Bumetanide 1 MG TABLET PO SCH (09:00)
[2020-12-16] MEDS: Multivit/Ca/Min/Fe/FA 1 TAB TABLET PO SCH (10:23)
[2020-12-16] MEDS: Cefepime HCl 2,000 MG in Water for inj. (sterile) 20 ML IVP SCH (10:24)
[2020-12-16] MEDS: amLODIPine 5 MG TABLET PO SCH (10:24)
[2020-12-16] MEDS: Metoprolol 100 MG TABLET PO SCH ×2 (10:24→21:14)
[2020-12-16] MEDS: Insulin LISPRO 300 UNITS/3 ML VIAL SUBQ SCH ×4 (11:37→21:15)
[2020-12-16] MEDS: FISH OIL 1000 MG PO SCH (11:41)
[2020-12-16] MEDS: Ipratropium/Albuterol Neb 3 ML IH PRN ×2 (12:02→15:30)
[2020-12-16 16:19] LABS: Estimated Average Glucose 189 mg/dl; Hemoglobin A1C 8.2 %
[2020-12-16] MEDS ORDERED: Bumetanide 1 MG TABLET PO PRN (17:04)
[2020-12-16] MEDS: Isosorbide MONOnitrate (24 HR) 30 MG TAB.ER.24H PO SCH (21:14)
[2020-12-17] MEDS: *HR* Heparin 5,000 UNIT/ML VIAL SQ SCH ×3 (04:46→21:57)
[2020-12-17 07:53] LABS: Mean Corpuscular HGB Conc 31.7 g/dL (31.6-35.5); Monocytes % 7.5 %; Red Cell Distribution Width 16.8 % (11.5-14.5)
[2020-12-17 07:55] LABS: Basophils % 0.3 %; Eosinophils % 0.4 %; Hematocrit 34.1 % (37.5-50.1); Hemoglobin 10.8 g/dL (12.9-16.9); Immature Granulocytes % 0.9 % (0-4); Immature Platelets 2.1 % (1.1-6.1); Lymphocytes % 10.3 %; Mean Corpuscular Hemoglobin 26.2 pg (28.0-33.3); Mean Corpuscular Volume 82.6 fL (83.0-100.0); Mean Platelet Volume 9.4 fL (9.4-12.4); Monocytes # 0.8 K/mcL (0.0-1.3); Neutrophils # 8.1 K/mcL (1.6-8.9); Platelet Count 103 K/mcL (140-400); Red Blood Count 4.13 M/mcL (4.19-5.50); Segmented Neutrophils % 80.6 %
[2020-12-17 08:11] LABS: Calcium 8.8 mg/dL (8.6-10.3); Potassium 4.1 mEq/L (3.5-5.1)
[2020-12-17] MEDS: Multivit/Ca/Min/Fe/FA 1 TAB TABLET PO SCH (08:18)
[2020-12-17] MEDS: Metoprolol 100 MG TABLET PO SCH ×2 (08:19→21:57)
[2020-12-17] MEDS: Insulin LISPRO 300 UNITS/3 ML VIAL SUBQ SCH ×4 (08:20→21:57)
[2020-12-17] MEDS: FISH OIL 1000 MG PO SCH (08:21)
[2020-12-17] MEDS: amLODIPine 5 MG TABLET PO SCH ×2 (08:25→09:20)
[2020-12-17] MEDS ORDERED: amLODIPine 5 MG TABLET PO ONE (09:30)
[2020-12-17] MEDS: Bumetanide 1 MG TABLET PO SCH (10:03)
[2020-12-17] MEDS: Cefepime HCl 2,000 MG in Water for inj. (sterile) 20 ML IVP SCH (10:04)
[2020-12-17] MEDS: Budesonide/Formoterol 160/4.5 1 PUFF INH IH SCH ×2 (10:08→20:10)
[2020-12-17] MEDS: Ipratropium/Albuterol Neb 3 ML IH PRN ×2 (10:08→20:10)
[2020-12-17] MEDS ORDERED: Acetaminophen 325 MG TABLET PO PRN (13:28)
[2020-12-17 13:52] LABS: Adenovirus Not Detected (Not Detect); Bordetella Pertussis Not Detected (Not Detect); Chlamydophila pneumoniae Not Detected (Not Detect); Coronavirus 229E Not Detected (Not Detect); Coronavirus HKU1 Not Detected (Not Detect); Coronavirus NL63 Not Detected (Not Detect); Coronavirus OC43 Not Detected (Not Detect); Human Metapneumovirus Not Detected (Not Detect); Human Rhinovirus/Enterovirus Not Detected (Not Detect); Influenza A Subtype 2009 H1 Not Detected (Not Detect); Influenza B Not Detected (Not Detect); Mycoplasma pneumoniae Not Detected (Not Detect); Parainfluenza Virus 1 Not Detected (Not Detect); Parainfluenza Virus 2 Not Detected (Not Detect); Parainfluenza Virus 3 Not Detected (Not Detect); Parainfluenza Virus 4 Not Detected (Not Detect); Respiratory Syncytial Virus Not Detected (Not Detect); SARS-CoV-2 Not Detected (Not Detect)
[2020-12-17] MEDS: Isosorbide MONOnitrate (24 HR) 30 MG TAB.ER.24H PO SCH (21:57)
[2020-12-17] MEDS: Insulin DETEMIR 100 UNIT/ML X5UNITS SUBQ SCH (21:59)
[2020-12-18] MEDS: *HR* Heparin 5,000 UNIT/ML VIAL SQ SCH (05:19)
[2020-12-18 06:15] LABS: Basophils % 0.4 %
[2020-12-18 06:17] LABS: Eosinophils # 0.2 K/mcL (0.0-0.6); Eosinophils % 2.1 %; Hematocrit 31.5 % (37.5-50.1); Hemoglobin 9.8 g/dL (12.9-16.9); Immature Granulocytes % 0.7 % (0-4); Immature Platelets 2.5 % (1.1-6.1); Lymphocytes # 1.4 K/mcL (0.6-4.6); Lymphocytes % 18.3 %; Mean Corpuscular HGB Conc 31.1 g/dL (31.6-35.5); Mean Corpuscular Hemoglobin 26.1 pg (28.0-33.3); Mean Corpuscular Volume 83.8 fL (83.0-100.0); Mean Platelet Volume 9.4 fL (9.4-12.4); Monocytes # 0.6 K/mcL (0.0-1.3); Monocytes % 8.2 %; Neutrophils # 5.3 K/mcL (1.6-8.9); Platelet Count 104 K/mcL (140-400); Red Blood Count 3.76 M/mcL (4.19-5.50); Red Cell Distribution Width 16.8 % (11.5-14.5); Segmented Neutrophils % 70.3 %; White Blood Count 7.6 K/mcL (4.3-11.1)
[2020-12-18 06:34] LABS: Calcium 8.5 mg/dL (8.6-10.3); Phosphorous 2.4 mg/dL (2.7-4.5); Potassium 3.7 mEq/L (3.5-5.1)
[2020-12-18] MEDS: Budesonide/Formoterol 160/4.5 1 PUFF INH IH SCH (07:55)
[2020-12-18] MEDS ORDERED: Loratadine 10 MG TABLET PO ONE (08:05)
[2020-12-18] MEDS ORDERED: amLODIPine 5 MG TABLET PO SCH (09:00)
[2020-12-18] MEDS: Bumetanide 1 MG TABLET PO SCH (09:15)
[2020-12-18] MEDS: Multivit/Ca/Min/Fe/FA 1 TAB TABLET PO SCH (09:16)
[2020-12-18] MEDS: Metoprolol 100 MG TABLET PO SCH (09:16)
[2020-12-18] MEDS: FISH OIL 1000 MG PO SCH (09:18)
[2020-12-18] MEDS: Insulin DETEMIR 100 UNIT/ML X5UNITS SUBQ SCH (09:33)
[2020-12-18] MEDS: Insulin LISPRO 300 UNITS/3 ML VIAL SUBQ SCH ×2 (09:33→12:50)
[2020-12-18] MEDS: Cefepime HCl 2,000 MG in Water for inj. (sterile) 20 ML IVP SCH (10:36)
[2020-12-18 11:30] VITALS: BP 149/81; PULSE 68; TEMP 98.2; O2SAT 96
== END 2020-12-18 14:10 | disposition home health service (06) | DRG 637 ==
LOC: EMEROOARM 17:52 → 3BNU 17:52 → SUATTDRO 12-14 03:36 → 3BNU 12-14 04:00 → SUATTDRO 12-15 18:39
PROVIDERS: ADMIT Student in an Organized Health Care Education/Training Program; ATTEND Internal Medicine

== ENCOUNTER 2021-05-16 16:43 | Observation (INO) ==
[2021-05-16] MEDS ORDERED: Furosemide 40 MG/4 ML VIAL IVP ONE (17:02)
[2021-05-16] MEDS ORDERED: Torsemide 20 MG TABLET PO ONE (17:15)
[2021-05-16] MEDS ORDERED: Ondansetron 4 MG/2 ML VIAL IVP PRN (17:39)
[2021-05-16] MEDS ORDERED: Acetaminophen 325 MG TABLET PO PRN (17:39)
[2021-05-16] MEDS ORDERED: Naloxone 0.4 MG/ML INJ IVP PRN (17:39)
[2021-05-16 18:28] LABS: Basophils % 0.4 %; Eosinophils # 0.1 K/mcL (0.0-0.6); Eosinophils % 1.8 %; Hematocrit 35.9 % (37.5-50.1); Hemoglobin 10.7 g/dL (12.9-16.9); Immature Granulocytes % 0.1 % (0-4); Mean Corpuscular HGB Conc 29.8 g/dL (31.6-35.5); Mean Corpuscular Hemoglobin 25.2 pg (28.0-33.3); Mean Corpuscular Volume 84.5 fL (83.0-100.0); Mean Platelet Volume 9.3 fL (9.4-12.4); Monocytes # 0.5 K/mcL (0.0-1.3); Monocytes % 6.6 %; Neutrophils # 5.5 K/mcL (1.6-8.9); Platelet Count 110 K/mcL (140-400); Red Blood Count 4.25 M/mcL (4.19-5.50); Red Cell Distribution Width 16.2 % (11.5-14.5); Segmented Neutrophils % 77.1 %; White Blood Count 7.1 K/mcL (4.3-11.1)
[2021-05-16 18:29] LABS: Bilirubin,Urine Negative (Negative); Blood,Urine Negative (Negative); Clarity,Urine Clear (Clear); Color,Urine Light-Yellow (Yellow); Glucose,Urine (UA) Normal (Normal); Hyaline Casts,Urine Few per lpf (None Seen); Ketones,Urine Negative (Negative); Leukocyte Esterase,Urine Negative (Negative); Mucus,Urine Few per lpf (None-Few); Nitrite,Urine Negative (Negative); Protein,Urine 70 mg/dL (Neg-Trace); RBC,Urine 0-3 per hpf (0-3); Squamous Epithelial Cell,Urine Few per hpf (None-Few); Urobilinogen,Urine Normal (Normal); WBC,Urine 0-3 per hpf (0-3)
[2021-05-16 18:37] LABS: INR 1.2; Prothrombin Time 13.7 Seconds (9.4-12.1)
[2021-05-16 18:46] LABS: BUN/Creatinine Ratio 14 (6-26); Blood Urea Nitrogen 28 mg/dL (8-23); Calcium 8.9 mg/dL (8.6-10.3); Carbon Dioxide 33 mEq/L (23-29); Chloride 106 mEq/L (98-107); Glucose 57 mg/dL (70-105); Magnesium 1.7 mg/dL (1.6-2.6); Osmolality,Calculated 297 (280-300); Potassium 3.4 mEq/L (3.5-5.1); Sodium 142 mEq/L (136-145); eGFR For African Americans 42 (> 60); eGFR For Non-African Americans 34 (> 60)
[2021-05-16 18:47] LABS: Troponin I < 0.03 ng/mL (< 0.04)
[2021-05-16] MEDS ORDERED: *HR* Dextrose 50 % in Water (Syg) 50 ML SYRINGE IVP PRN (18:55)
[2021-05-16] MEDS ORDERED: D5% in Water 1,000 ML IVC PRN (18:55)
[2021-05-16] MEDS ORDERED: Dextrose Gel 15 GM/37.5 ML TUBE PO PRN ×2 (18:55)
[2021-05-16] MEDS ORDERED: *HR* Dextrose 50 % in Water (Syg) 50 ML SYRINGE IVP ONE (18:56)
[2021-05-16 18:59] LABS: Thyroid Stimulating Hormone 2.033 mcIU/mL (0.340-5.600)
[2021-05-16] MEDS ORDERED: Ipratropium/Albuterol Neb 3 ML IH PRN (19:02)
[2021-05-16] MEDS: *HR* Heparin 5,000 UNIT/ML VIAL SQ SCH (22:25)
[2021-05-17] MEDS: *HR* Heparin 5,000 UNIT/ML VIAL SQ SCH (05:30)
[2021-05-17] MEDS ORDERED: Perflutren Lipid Microsphere 1.3 ML in 0.9 % Sodium Chloride 8.7 ML IVP PRN (07:24)
[2021-05-17 07:32] LABS: Basophils % 0.3 %; Eosinophils # 0.1 K/mcL (0.0-0.6); Eosinophils % 2.4 %; Hematocrit 34.8 % (37.5-50.1); Hemoglobin 10.2 g/dL (12.9-16.9); Immature Granulocytes % 0.2 % (0-4); Lymphocytes # 1.1 K/mcL (0.6-4.6); Lymphocytes % 19.1 %; Mean Corpuscular HGB Conc 29.3 g/dL (31.6-35.5); Mean Corpuscular Hemoglobin 24.8 pg (28.0-33.3); Mean Corpuscular Volume 84.5 fL (83.0-100.0); Mean Platelet Volume 9.1 fL (9.4-12.4); Monocytes # 0.4 K/mcL (0.0-1.3); Monocytes % 6.3 %; Neutrophils # 4.2 K/mcL (1.6-8.9); Platelet Count 113 K/mcL (140-400); Red Blood Count 4.12 M/mcL (4.19-5.50); Red Cell Distribution Width 16.3 % (11.5-14.5); Segmented Neutrophils % 71.7 %; White Blood Count 5.9 K/mcL (4.3-11.1)
[2021-05-17 07:51] LABS: Albumin 3.1 g/dL (3.5-5.7); Bilirubin,Direct 0.1 mg/dL (0.0-0.2); Bilirubin,Indirect 0.5 mg/dL (0.0-1.0); Bilirubin,Total 0.6 mg/dL (0.3-1.0); Calcium 8.7 mg/dL (8.6-10.3); Globulin 3.2 g/dL (2.4-3.5); Magnesium 1.7 mg/dL (1.6-2.6); Total Protein 6.3 g/dL (6.4-8.9)
[2021-05-17 08:27] LABS: Folate > 22.3 ng/mL (3.0-16.0); Vitamin B12 529 pg/mL (250-1100)
[2021-05-17] MEDS: Gabapentin 400 MG CAPSULE PO SCH ×4 (08:59→20:43)
[2021-05-17] MEDS: Multivit/Ca/Min/Fe/FA 1 TAB TABLET PO SCH (08:59)
[2021-05-17] MEDS: Metoprolol 100 MG TABLET PO SCH ×2 (08:59→20:43)
[2021-05-17] MEDS: Furosemide 40 MG/4 ML VIAL IVP SCH (09:00)
[2021-05-17] MEDS: *HR* Rivaroxaban 10 MG TABLET PO SCH (09:11)
[2021-05-17 09:40] LABS: Estimated Average Glucose 146 mg/dl; Hemoglobin A1C 6.7 %
[2021-05-17] MEDS ORDERED: Iron Sucrose Complex 250 MG in 0.9 % Sodium Chloride 250 ML IVPB ONE (15:47)
[2021-05-17] MEDS: Isosorbide MONOnitrate (24 HR) 30 MG TAB.ER.24H PO SCH (20:43)
[2021-05-18 02:33] LABS: Basophils % 0.5 %; Eosinophils # 0.2 K/mcL (0.0-0.6); Eosinophils % 3.2 %; Hematocrit 35.4 % (37.5-50.1); Hemoglobin 10.3 g/dL (12.9-16.9); Immature Granulocytes % 0.3 % (0-4); Lymphocytes # 1.6 K/mcL (0.6-4.6); Lymphocytes % 25.9 %; Mean Corpuscular HGB Conc 29.1 g/dL (31.6-35.5); Mean Corpuscular Hemoglobin 25.3 pg (28.0-33.3); Mean Platelet Volume 10.3 fL (9.4-12.4); Monocytes # 0.5 K/mcL (0.0-1.3); Monocytes % 7.5 %; Neutrophils # 3.9 K/mcL (1.6-8.9); Platelet Count 117 K/mcL (140-400); Red Blood Count 4.07 M/mcL (4.19-5.50); Red Cell Distribution Width 16.4 % (11.5-14.5); Segmented Neutrophils % 62.6 %; White Blood Count 6.2 K/mcL (4.3-11.1)
[2021-05-18 02:54] LABS: Calcium 8.3 mg/dL (8.6-10.3); Magnesium 1.8 mg/dL (1.6-2.6); Potassium 4.7 mEq/L (3.5-5.1)
[2021-05-18] MEDS: *HR* Rivaroxaban 10 MG TABLET PO SCH (08:31)
[2021-05-18] MEDS: Multivit/Ca/Min/Fe/FA 1 TAB TABLET PO SCH (08:31)
[2021-05-18] MEDS: Metoprolol 100 MG TABLET PO SCH ×2 (08:31→21:55)
[2021-05-18] MEDS: Gabapentin 400 MG CAPSULE PO SCH ×4 (08:31→21:55)
[2021-05-18] MEDS: Furosemide 40 MG/4 ML VIAL IVP SCH (08:32)
[2021-05-18] MEDS: Nystatin POWDER 30 GM BOTTLE TP SCH ×3 (11:05→21:55)
[2021-05-18] MEDS: Isosorbide MONOnitrate (24 HR) 30 MG TAB.ER.24H PO SCH (21:54)
[2021-05-19 05:59] LABS: Basophils % 0.5 %; Eosinophils # 0.2 K/mcL (0.0-0.6); Eosinophils % 3.6 %; Hematocrit 32.7 % (37.5-50.1); Hemoglobin 9.6 g/dL (12.9-16.9); Immature Granulocytes % 0.3 % (0-4); Lymphocytes # 1.4 K/mcL (0.6-4.6); Lymphocytes % 23.5 %; Mean Corpuscular HGB Conc 29.4 g/dL (31.6-35.5); Mean Corpuscular Hemoglobin 25.3 pg (28.0-33.3); Mean Corpuscular Volume 86.1 fL (83.0-100.0); Mean Platelet Volume 9.5 fL (9.4-12.4); Monocytes # 0.4 K/mcL (0.0-1.3); Neutrophils # 3.8 K/mcL (1.6-8.9); Platelet Count 102 K/mcL (140-400); Red Cell Distribution Width 16.4 % (11.5-14.5); Segmented Neutrophils % 65.1 %; White Blood Count 5.8 K/mcL (4.3-11.1)
[2021-05-19 06:13] LABS: Calcium 8.5 mg/dL (8.6-10.3); Magnesium 1.9 mg/dL (1.6-2.6); Potassium 4.3 mEq/L (3.5-5.1)
[2021-05-19 06:39] VITALS: TEMP 97.6; O2SAT 96
[2021-05-19] MEDS: Metoprolol 100 MG TABLET PO SCH (08:52)
[2021-05-19] MEDS: Multivit/Ca/Min/Fe/FA 1 TAB TABLET PO SCH (08:52)
[2021-05-19] MEDS: Gabapentin 400 MG CAPSULE PO SCH (08:53)
[2021-05-19] MEDS: Nystatin POWDER 30 GM BOTTLE TP SCH (08:55)
[2021-05-19] MEDS: *HR* Rivaroxaban 10 MG TABLET PO SCH (08:55)
[2021-05-19] MEDS: Furosemide 40 MG/4 ML VIAL IVP SCH (08:55)
[2021-05-19 10:49] VITALS: BP 145/83; PULSE 81
== END 2021-05-19 12:22 | disposition home health service (06) ==
LOC: EMEROOARM 16:43 → 3BNU 16:43 → SUATTDRO 19:09 → 3BNU 21:37
PROVIDERS: ADMIT Pharmacist; ATTEND Pharmacist

== ENCOUNTER 2021-08-08 15:52 | Inpatient (IN) ==
[2021-08-08] MEDS ORDERED: Ondansetron 4 MG/2 ML VIAL IVP PRN (22:16)
[2021-08-08] MEDS ORDERED: Acetaminophen 325 MG TABLET PO PRN (22:16)
[2021-08-08] MEDS ORDERED: Naloxone 0.4 MG/ML INJ IVP PRN (22:16)
[2021-08-08] MEDS ORDERED: Dextrose 4 GM Chewable Tablets PO PRN ×2 (23:09)
[2021-08-08] MEDS ORDERED: *HR* Dextrose 50 % in Water (Syg) 50 ML SYRINGE IVP PRN (23:09)
[2021-08-08] MEDS ORDERED: D5% in Water 1,000 ML IVC PRN (23:09)
[2021-08-08] MEDS ORDERED: *HR* Heparin 5,000 UNIT/ML VIAL IVP PRN ×2 (23:10)
[2021-08-09] MEDS: Insulin LISPRO 300 UNITS/3 ML VIAL SUBQ SCH ×4 (00:31→16:10)
[2021-08-09] MEDS: Metoprolol 100 MG TABLET PO SCH ×2 (00:31→08:32)
[2021-08-09] MEDS ORDERED: Vancomycin 2,000 MG/520 ML IV.SOLN IVPB ONE (01:00)
[2021-08-09 01:27] LABS: Hematocrit 37.9 % (37.5-50.1); Mean Corpuscular HGB Conc 31.7 g/dL (31.6-35.5); Mean Corpuscular Hemoglobin 25.6 pg (28.0-33.3); Mean Corpuscular Volume 80.8 fL (83.0-100.0); Mean Platelet Volume 9.4 fL (9.4-12.4); Platelet Count 131 K/mcL (140-400); Red Blood Count 4.69 M/mcL (4.19-5.50); Red Cell Distribution Width 17.8 % (11.5-14.5); White Blood Count 7.3 K/mcL (4.3-11.1)
[2021-08-09 01:35] LABS: Heparin anti-factor XA UFH < 0.04 IU/mL (0.30-0.70); INR 1.1; Prothrombin Time 12.7 Seconds (9.4-12.1)
[2021-08-09 01:38] LABS: Activated Partial Thrombo Time 33.6 Seconds (26.0-36.0)
[2021-08-09 01:48] LABS: Calcium 8.7 mg/dL (8.6-10.3); Potassium 3.7 mEq/L (3.5-5.1)
[2021-08-09] MEDS: Heparin 25,000UNIT/250ML 1/2NS 25,000 UNIT/250 ML IV.SOLN IVC SCH ×2 (02:10→13:21)
[2021-08-09 06:20] LABS: Hematocrit 38.9 % (37.5-50.1); Hemoglobin 12.1 g/dL (12.9-16.9); Mean Corpuscular HGB Conc 31.1 g/dL (31.6-35.5); Mean Corpuscular Hemoglobin 25.4 pg (28.0-33.3); Mean Corpuscular Volume 81.6 fL (83.0-100.0); Mean Platelet Volume 9.2 fL (9.4-12.4); Platelet Count 131 K/mcL (140-400); Red Blood Count 4.77 M/mcL (4.19-5.50); Red Cell Distribution Width 17.8 % (11.5-14.5); White Blood Count 6.3 K/mcL (4.3-11.1)
[2021-08-09] MEDS ORDERED: Furosemide 40 MG/4 ML VIAL IVP SCH (09:00)
[2021-08-09] MEDS ORDERED: Albumin 25% 25gram/100mL 25 GM/100 ML IV.SOLN IVPB ONE (09:17)
[2021-08-09] MEDS ORDERED: Furosemide 80 MG in 0.9 % Sodium Chloride 50 ML IV SCH (10:30)
[2021-08-09] MEDS: Albumin 25% 25gram/100mL 25 GM/100 ML IV.SOLN IVPB SCH ×2 (16:04→23:52)
[2021-08-09] MEDS: Gabapentin 400 MG CAPSULE PO SCH ×2 (16:04→19:46)
[2021-08-09] MEDS: Furosemide 80 MG in 0.9 % Sodium Chloride 50 ML IV SCH (17:52)
[2021-08-09] MEDS: *HR* Heparin 5,000 UNIT/ML VIAL SQ SCH (17:52)
[2021-08-09] MEDS: Insulin DETEMIR 100 UNIT/ML X5UNITS SUBQ SCH (19:47)
[2021-08-10] MEDS ORDERED: Vancomycin 1,500 MG/265 ML IV.SOLN IVPB SCH (01:00)
[2021-08-10] MEDS: *HR* Heparin 5,000 UNIT/ML VIAL SQ SCH ×2 (06:16→18:09)
[2021-08-10] MEDS: Insulin DETEMIR 100 UNIT/ML X5UNITS SUBQ SCH (07:37)
[2021-08-10] MEDS: Gabapentin 400 MG CAPSULE PO SCH ×4 (07:38→20:07)
[2021-08-10] MEDS: Albumin 25% 25gram/100mL 25 GM/100 ML IV.SOLN IVPB SCH ×2 (07:38→16:25)
[2021-08-10] MEDS: Insulin LISPRO 300 UNITS/3 ML VIAL SUBQ SCH ×3 (07:39→18:08)
[2021-08-10] MEDS: Furosemide 80 MG in 0.9 % Sodium Chloride 50 ML IV SCH (09:51)
[2021-08-10 14:03] LABS: Hematocrit 35.9 % (37.5-50.1); Hemoglobin 11.4 g/dL (12.9-16.9); Mean Corpuscular HGB Conc 31.8 g/dL (31.6-35.5); Mean Corpuscular Hemoglobin 25.9 pg (28.0-33.3); Mean Corpuscular Volume 81.4 fL (83.0-100.0); Mean Platelet Volume 9.4 fL (9.4-12.4); Platelet Count 115 K/mcL (140-400); Red Blood Count 4.41 M/mcL (4.19-5.50); Red Cell Distribution Width 17.6 % (11.5-14.5); White Blood Count 6.4 K/mcL (4.3-11.1)
[2021-08-10 14:24] LABS: Calcium 9.5 mg/dL (8.6-10.3); Magnesium 1.8 mg/dL (1.6-2.6); Potassium 3.8 mEq/L (3.5-5.1)
[2021-08-10] MEDS: Furosemide 40 MG TABLET PO SCH (16:25)
[2021-08-11] MEDS: Albumin 25% 25gram/100mL 25 GM/100 ML IV.SOLN IVPB SCH ×2 (01:44→09:47)
[2021-08-11] MEDS: Insulin DETEMIR 100 UNIT/ML X5UNITS SUBQ SCH (01:44)
[2021-08-11 02:52] LABS: Hemoglobin 11.4 g/dL (12.9-16.9); Mean Corpuscular HGB Conc 30.8 g/dL (31.6-35.5); Mean Corpuscular Hemoglobin 25.6 pg (28.0-33.3); Mean Corpuscular Volume 83.1 fL (83.0-100.0); Mean Platelet Volume 9.6 fL (9.4-12.4); Platelet Count 111 K/mcL (140-400); Red Blood Count 4.45 M/mcL (4.19-5.50); Red Cell Distribution Width 17.6 % (11.5-14.5); White Blood Count 6.5 K/mcL (4.3-11.1)
[2021-08-11 03:06] LABS: Calcium 9.5 mg/dL (8.6-10.3); Potassium 3.8 mEq/L (3.5-5.1)
[2021-08-11 03:19] VITALS: PULSE 63; TEMP 97.6
[2021-08-11 07:26] VITALS: BP 175/104; O2SAT 96
[2021-08-11] MEDS ORDERED: Insulin DETEMIR 100 UNIT/ML X5UNITS SUBQ SCH (09:00)
[2021-08-11] MEDS: Furosemide 40 MG TABLET PO SCH (09:46)
[2021-08-11] MEDS: Gabapentin 400 MG CAPSULE PO SCH (09:46)
[2021-08-11] MEDS: Insulin LISPRO 300 UNITS/3 ML VIAL SUBQ SCH ×2 (09:48→13:42)
[2021-08-11] MEDS: *HR* Heparin 5,000 UNIT/ML VIAL SQ SCH (09:48)
== END 2021-08-11 15:47 | disposition home health service (06) | DRG 280 ==
LOC: 3NENU → SUATTDRO 20:48
PROVIDERS: ADMIT Internal Medicine; ATTEND Family Medicine